=== PATIENT | male | born 1950 | race Caucasian/White ===

== ENCOUNTER 2020-02-28 14:03 | Outpatient (REF) | payer MEDICARE, OTHER, SELFPAY | END 2020-02-28 14:04 | disposition home or self-care (01) | LOC: HO.LNP 14:03 | PROVIDERS: Visit Provider Family Medicine | DX: Z20.828 Contact with and (suspected) exposure to other viral communicable diseases (principal) | CPT/HCPCS: U0003 ==

== ENCOUNTER 2020-02-29 09:45 | Emergency (ER) | payer MEDICARE, OTHER, SELFPAY ==
[2020-02-29 09:59] VITALS: BP 119/68; PULSE 85; RESP 18; TEMP 38.3; O2SAT 99; BMI 28.0
--- NOTE | 2020-02-29 10:05 | XR_ITS ---
EXAMINATION: XR CHEST CLINICAL INFORMATION: Shortness of breath, cough COMPARISON: None TECHNIQUE: Portable upright AP view of the chest was obtained. FINDINGS: There is probable nipple shadow right base overlying the sixth anterior intercostal space. This may be confirmed with repeat view with nipple marker. The lungs otherwise clear. There is no airspace consolidation or groundglass opacity. No pleural reaction or effusion. The costophrenic sulci are clear. The heart is normal in size. The hilar and mediastinal contours are normal. No visible acute bony abnormality. XR/XR chest 1V IMPRESSION: 1. Nodular opacity right base, possibly nipple shadow. This may be confirmed with repeat view with nipple marker. 2. Lungs otherwise clear.
--- NOTE | 2020-02-29 10:19 | ED.URI ---
HPI - URI/Sore Throat General Chief Complaint: Upper Respiratory Symptoms <Susan Rivera NP - Last Filed: 02/29/20 12:17> Stated Complaint: covid symptoms <Susan Rivera NP - Last Filed: 02/29/20 12:17> Time Seen by Provider: 02/29/20 10:05 <Susan Rivera NP - Last Filed: 02/29/20 12:17> Source: patient <Susan Rivera NP - Last Filed: 02/29/20 12:17> Mode of arrival: ambulatory <Susan Rivera NP - Last Filed: 02/29/20 12:17> Limitations: no limitations <Susan Rivera NP - Last Filed: 02/29/20 12:17> History of Present Illness HPI Narrative: 69-year-old male previously healthy here with cough, sore throat, subjective fevers, headache x3 days. The patient tells me he has some chest discomfort with coughing. No shortness of breath, leg swelling or pain. <Susan Rivera NP - Last Filed: 02/29/20 12:17> MD elicited complaint: fever and cough <Susan Rivera NP - Last Filed: 02/29/20 12:17> Onset (ago): day(s) <Susan Rivera NP - Last Filed: 02/29/20 12:17> Consistency: intermittent <Susan Rivera NP - Last Filed: 02/29/20 12:17> Severity: mild <Susan Rivera NP - Last Filed: 02/29/20 12:17> Able to tolerate fluids by mouth: Yes <Susan Rivera NP - Last Filed: 02/29/20 12:17> Exacerbating factors: nothing <Susan Rivera NP - Last Filed: 02/29/20 12:17> Relieving factors: nothing <Susan Rivera NP - Last Filed: 02/29/20 12:17> Associated symptoms: fever, headache, sore throat, cough and chest pain <Susan Rivera NP - Last Filed: 12/02/20 12:17> Treatments prior to arrival: none <Susan Rivera NP - Last Filed: 02/29/20 12:17> Related Data Home Medications: Previous Rx's Medication Instructions Recorded lisinopril 20 mg tablet 20 mg PO DAILY 30 Days #30 tab 01/30/20 <Susan Rivera NP - Last Filed: 02/29/20 12:17> Allergies/Adverse Reactions: Allergies Allergy/AdvReac Type Severity Reaction Status Date / Time No Known Allergies Allergy Verified 02/28/20 09:12 [No Known Allergies*] <Susan Rivera NP - Last Filed: 02/29/20 12:17> Review of Systems Review of Systems: Yes all other systems are reviewed and are negative <Susan Rivera NP - Last Filed: 02/29/20 12:17> Constitutional: Constitutional: Reports no additional constitutional complaints, Denies body ache(s), Denies chills, Reports fever(s), Reports headache(s) and Denies weakness <Susan Rivera NP - Last Filed: 02/29/20 12:17> Eyes: Eyes: Reports no additional eye complaints and Denies change in vision <Susan Rivera NP - Last Filed: 02/29/20 12:17> ENT: Reports system reviewed and no additional complaints, except as documented, Denies dizziness, Reports headache(s), Denies nasal congestion, Denies nasal discharge, Denies neck pain and Reports sore throat <Susan Rivera NP - Last Filed: 02/29/20 12:17> Cardiovascular: Cardiovascular: Reports no additional cardiovascular complaints, Reports chest pain, Denies leg edema and Denies dyspnea <Susan Rivera NP - Last Filed: 02/29/20 12:17> Respiratory: Respiratory: Reports no additional respiratory complaints, Reports cough and Denies dyspnea <Susan Rivera NP - Last Filed: 02/29/20 12:17> Gastrointestinal: Gastrointestinal: Reports no additional gastrointestinal complaints, Denies abdominal pain, Denies diarrhea, Denies nausea and Denies vomiting <Susan Rivera NP - Last Filed: 02/29/20 12:17> Genitourinary: Genitourinary: Denies urinary incontinence <Susan Rivera NP - Last Filed: 02/29/20 12:17> Musculoskeletal: Musculoskeletal: Reports no additional musculoskeletal complaints, Denies back pain, Denies arthralgias, Denies joint swelling, Denies neck pain, Denies numbness and Denies tingling <Susan Rivera NP - Last Filed: 02/29/20 12:17> Integumentary/Breasts: Skin/Breast: Reports system reviewed and no additional complaints, except as docu and Denies rash <Susan Rivera NP - Last Filed: 02/29/20 12:17> Neurologic: Reports system reviewed and no additional complaints, except as documented, Denies Abnormal speech present, Denies dizziness, Reports headache(s), Denies numbness, Denies tingling and Denies weakness <Susan Rivera NP - Last Filed: 02/29/20 12:17> [facility] Past Medical History Attestation statement: The following information was validated with the patient. <Susan Rivera NP - Last Filed: 02/29/20 12:17> Source: old records reviewed and nursing notes reviewed <Susan Rivera NP - Last Filed: 02/29/20 12:17> Social History Social History: Social History Alcohol intake: former Smoking Status: Former smoker Use of substances other than those prescribed or required for medical reasons: No Advance Directives: No Advance Directives Information Provided: No <Susan Rivera NP - Last Filed: 02/29/20 12:17> Physical Exam Vital Signs: Vital Signs: Last Vital Signs Temp 100.8 F H 02/29/20 11:09 Pulse 71 02/29/20 11:09 Resp 16 02/29/20 11:09 BP 113/62 02/29/20 11:09 Pulse Ox 96 02/29/20 11:11 Body Mass Index 28.0 <Susan Rivera NP - Last Filed: 02/29/20 12:17> Vital Signs: Last Vital Signs Temp 100.8 F H 02/29/20 11:09 Pulse 71 02/29/20 11:09 Resp 16 02/29/20 11:09 BP 113/62 02/29/20 11:09 Pulse Ox 96 02/29/20 11:11 Body Mass Index 28.0 <Simon Hendricks MD - Last Filed: 03/18/20 20:03> Const: General: cooperative, healthy appearing, comfortable and no acute distress <Susan Rivera NP - Last Filed: 02/29/20 12:17> Orientation/consciousness: patient oriented x3 <Susan Rivera NP - Last Filed: 02/29/20 12:17> Limitations: no limitations <Susan Rivera NP - Last Filed: 02/29/20 12:17> HENMT: Head: Yes normal to inspection <Susan Rivera NP - Last Filed: 02/29/20 12:17> Ears: hearing grossly normal bilaterally <Susan Rivera NP - Last Filed: 02/29/20 12:17> General nose exam: Normal external nose present <Susan Rivera NP - Last Filed: 02/29/20 12:17> Face and sinus: Yes normal facial exam <Susan Rivera NP - Last Filed: 02/29/20 12:17> Mouth: Normal oral and palatal mucosa present <Susan Rivera NP - Last Filed: 02/29/20 12:17> Throat: Yes posterior oropharynx normal <Susan Rivera NP - Last Filed: 02/29/20 12:17> Eyes: General: appearance normal, both eyes and all related structures <Susan Rivera NP - Last Filed: 02/29/20 12:17> Pupils: Equal, round and reactive pupils present <Susan Rivera NP - Last Filed: 02/29/20 12:17> Neck: Neck: Yes normal visual inspection <Susan Rivera NP - Last Filed: 02/29/20 12:17> Chest: Chest palpation & inspection: normal inspection of the chest <Susan Rivera NP - Last Filed: 02/29/20 12:17> Resp: Effort & Inspection: normal respiratory effort <Susan Rivera NP - Last Filed: 02/29/20 12:17> Auscultation: clear to auscultation bilaterally <Susan Rivera NP - Last Filed: 02/29/20 12:17> Cardio: Rate: regular rate <Susan Rivera NP - Last Filed: 02/29/20 12:17> Rhythm: regular rhythm <Susan Rivera [employer]IST - Last Filed: 02/29/20 12:17> Peripheral pulses: Peripheral pulses 2+ throughout <Susan Rivera NP - Last Filed: 02/29/20 12:17> GI: Inspection: Yes normal to inspection <Susan Rivera NP - Last Filed: 02/29/20 12:17> Palpation (GI): Soft to palpation and nontender <Susan Rivera NP - Last Filed: 02/29/20 12:17> Auscultation: normal bowel sounds <Susan Rivera NP - Last Filed: 02/29/20 12:17> Back/Spine/Pelvis: Thoracic/Lumbar Spine: thoracic and lumbar spine normal to inspection <Susan Rivera NP - Last Filed: 02/29/20 12:17> Skin: General skin exam: no rashes or lesions noted <Susan Rivera NP - Last Filed: 02/29/20 12:17> Neuro: General: patient oriented x3, no focal motor deficits and normal sensation to monofilament <Susan Rivera NP - Last Filed: 02/29/20 12:17> Cranial nerves: Yes Equal, round and reactive pupils present <Susan Rivera NP - Last Filed: 02/29/20 12:17> Cognition (Neuro): normal cognition <Susan Rivera NP - Last Filed: 02/29/20 12:17> Speech: No Abnormal speech present <Susan Rivera NP - Last Filed: 02/29/20 12:17> Gait exam (Neuro): Normal gait present <Susan Rivera NP - Last Filed: 02/29/20 12:17> Motor exam (neuro): 5/5 motor strength present throughout <Susan Rivera NP - Last Filed: 02/29/20 12:17> Extrem: General: Yes normal to inspection <Susan Rivera NP - Last Filed: 02/29/20 12:17> Course Course Course Narrative: 69-year-old male here with flu-like symptoms x3 days. Patient is well-appearing. He only has chest discomfort with coughing. It is not worsened with deep breathing or movement. Likely chest wall strain. Will send COVID testing and check chest x-ray. Patient is febrile on arrival with no other signs or symptoms of systemic infection. This is from a viral cause. 1145- COVID swab positive. Fever is from viral infection. chest x-ray unremarkable for underlying pneumonia. Patient ambulated in the ER with an oxygen saturation greater than 98%. Well-appearing. Reviewed worrisome signs and symptoms which includes severe shortness of breath, worsening chest pain, fever was not responding to Tylenol or Motrin and when to return to the emergency department. Comfortable with discharge home. Of no x-ray noted a potential nodular opacity but this is likely nipple shadowing. patient was made aware and the copy of the report was given to him so he can follow up with his primary care doctor as needed. <Susan Rivera NP - Last Filed: 02/29/20 12:17> I have reviewed the chart <Simon Hendricks MD - Last Filed: 03/18/20 20:03> MDM - URI/Sore Throat Medical Records Attestation: I reviewed the patient's medical records. <Susan Rivera NP - Last Filed: 02/29/20 12:17> Lab Data Attestation: I reviewed the patient's lab results. <Susan Rivera NP - Last Filed: 02/29/20 12:17> Labs: Lab Results 02/29/20 Range/Units 10:24 Coronavirus (PCR) POSITIVE A (Negative) Influenza Type A (PCR) NEGATIVE (Negative) Influenza Type B (PCR) NEGATIVE (Negative) RSV RNA Qual (PCR) NEGATIVE (Negative) <Susan Rivera NP - Last Filed: 02/29/20 12:17> Lab Results 02/29/20 Range/Units 10:24 Coronavirus (PCR) POSITIVE A (Negative) Influenza Type A (PCR) NEGATIVE (Negative) Influenza Type B (PCR) NEGATIVE (Negative) RSV RNA Qual (PCR) NEGATIVE (Negative) <Simon Hendricks MD - Last Filed: 03/18/20 20:03> Imaging Data Chest x-ray: Radiologist's impression: EXAMINATION: XR CHEST CLINICAL INFORMATION: Shortness of breath, cough COMPARISON: None TECHNIQUE: Portable upright AP view of the chest was obtained. FINDINGS: There is probable nipple shadow right base overlying the sixth anterior intercostal space. This may be confirmed with repeat view with nipple marker. The lungs otherwise clear. There is no airspace consolidation or groundglass opacity. No pleural reaction or effusion. The costophrenic sulci are clear. The heart is normal in size. The hilar and mediastinal contours are normal. No visible acute bony abnormality. XR/XR chest 1V IMPRESSION: 1. Nodular opacity right base, possibly nipple shadow. This may be confirmed with repeat view with nipple marker. 2. Lungs otherwise clear. <Susan Rivera NP - Last Filed: 02/29/20 12:17> Discharge Plan Discharge Clinical Impression: COVID-19 <Susan Rivera NP - Last Filed: 02/29/20 12:17> Patient Disposition: Home, Self-Care <Susan Rivera NP - Last Filed: 02/29/20 12:17> Instructions: COVID-19 (Coronavirus Disease 2019) (ED) <Susan Rivera NP - Last Filed: 02/29/20 12:17> Additional Instructions: Take tylenol or motrin if able as needed for pain or fever. Stay well hydrated with fluids like water, gatorade and/or powerade. Wash hands at home. If living with others try to self isolate if possible. If unable wear a mask around others in your home and wash hands frequently. If COVID test is positive you will need to self isolate for a total of 14 days from when your symptoms started. You may return to work sooner if testing is negative and all symptoms resolved >72 hours. You should return to the emergency department for severe shortness of breath, chest pain or fever which does not respond to both tylenol and motrin at home. <Susan Rivera NP - Last Filed: 02/29/20 12:17> Prescriptions: No Action lisinopril 20 mg tablet 20 mg PO DAILY 30 Days Qty: 30 RF: 6 <Susan Rivera NP - Last Filed: 02/29/20 12:17> Referrals: Jamie Porter MD [Primary Care Provider] - 2 days <Susan Rivera NP - Last Filed: 02/29/20 12:17> Interventions: ED Discharge Assessment Last Done: 02/29/20 12:07 <Susan Rivera NP - Last Filed: 02/29/20 12:17> Discharge Date/Time: 02/29/20 12:08 <Susan Rivera NP - Last Filed: 02/29/20 12:17>
[2020-02-29] MEDS: Acetaminophen 325 MG TABLET 650 MG PO (10:25)
[2020-02-29 11:09] VITALS: BP 113/62; PULSE 71; RESP 16; TEMP 38.2; O2SAT 95
[2020-02-29 11:11] VITALS: O2SAT 96
--- NOTE | 2020-02-29 11:12 | PC.NURSE ---
Awaiting COVID result- no distress, vss, provider aware of fever and antipyretic requested for pt. Pt denies needs or complaints at this time.
[2020-02-29] MEDS: Ibuprofen 600 MG TABLET PO (11:26)
[2020-02-29 11:46] LABS: Influenza A PCR NEGATIVE (Negative); Influenza B PCR NEGATIVE (Negative); Resp Syncy Virus RNA Qual PCR NEGATIVE (Negative); SARS COV2 PCR INHOUSE POSITIVE (Negative)
--- NOTE | 2020-02-29 11:51 | PC.NURSE ---
ambulation trial-pt maintained spo2 of 96 on room air, 85bpm. provider aware
== END 2020-02-29 12:08 | disposition home or self-care (01) ==
PROVIDERS: Nurse Practitioner Family; Emergency Provider Emergency Medicine; PCP Family Medicine
DX: U07.1 COVID-19 (principal); R05 Cough; R50.9 Fever, unspecified; Z87.891 Personal history of nicotine dependence
CPT/HCPCS: 0241U; 71045; 99283; 99284

== ENCOUNTER 2020-03-27 10:25 | Outpatient (REF) | payer MEDICARE, OTHER, SELFPAY | END 2020-03-27 10:26 | disposition home or self-care (01) | LOC: HO.LNP 10:25 | PROVIDERS: Visit Provider Family Medicine | DX: N39.0 Urinary tract infection, site not specified (principal) | CPT/HCPCS: 87086; 87088; 87186 ==

== ENCOUNTER 2020-09-18 14:53 | Outpatient (REF) | payer MEDICARE, OTHER, SELFPAY ==
[2020-09-18 14:58] LABS: MANUAL DIFF FLAG NO
[2020-09-18 15:02] LABS: Basophils Percent Auto 0.6 % (0-2); Eosinophils Absolute Auto 0.1 X10*3/uL (0.0-0.4); Eosinophils Percent Auto 1.9 % (0-4); Hemoglobin 13.6 g/dl (14.0-18.0); Imm Gran Abs Auto 0.02 X10*3/uL (0.00-0.03); Imm Gran Pct Auto 0.3 % (0.0-0.4); Lymphocytes Absolute Auto 1.7 X10*3/uL (1.2-4.9); Lymphocytes Percent Auto 25.5 % (20-40); Mean Corpuscular HGB Conc 33.2 g/dl (31.0-36.0); Mean Corpuscular Hemoglobin 28.2 pg (27.0-33.0); Mean Corpuscular Volume 85.1 fL (80-98); Mean Platelet Volume 11.8 fL (9.4-12.4); Monocytes Absolute Auto 0.6 X10*3/uL (0.1-1.2); Monocytes Percent Auto 9.3 % (2-11); Neutrophils Absolute Auto 4.2 X10*3/uL (2.0-8.3); Neutrophils Percent Auto 62.4 % (45-73); Platelet Count 254 X10*3/uL (160-400); Red Blood Count 4.82 X10*6/uL (4.60-5.80); Red Cell Distribution Width 12.9 % (11.0-16.0); White Blood Count 6.7 X10*3/uL (4.8-10.8)
[2020-09-18 15:19] LABS: Glucose Urine UA NEG (NEG); Leukocyte Esterase Urine NEG (NEG); Nitrite Urine NEG (NEG); Specific Gravity - Urine 1.025 (1.005-1.025); Urine Blood NEG (NEG); Urine Ketones NEG (NEG); Urine Protein NEG (NEG-TRACE)
[2020-09-18 15:23] LABS: Appearance Urine CLEAR; Color Urine YELLOW
[2020-09-18 15:44] LABS: Alanine Aminotransferase 14 U/L (0-40); Albumin Level 4.8 g/dL (3.5-5.0); Alkaline Phosphatase 68 U/L (39-117); Anion Gap 12 (12-20); Aspartate Amino Transferase 23 U/L (5-37); Bilirubin Total 0.7 mg/dL (0.0-1.0); Blood Urea Nitrogen 20 mg/dL (9-16); Calcium 9.7 mg/dL (8.4-10.2); Carbon Dioxide 24 mmol/L (22-29); Chloride 109 mmol/L (96-108); Cholesterol 199 mg/dL; Estimated Glomerular Filt Rate > 60; Glucose Fasting 108 mg/dL (60-99); HDL Cholesterol 28 mg/dL; LDL Cholesterol Calculated 124 mg/dl; Potassium 4.1 mmol/L (3.3-5.1); Sodium 141 mmol/L (135-145); Total Protein 7.6 g/dL (6.5-8.0); Triglycerides 235 mg/dL
[2020-09-18 16:05] LABS: Vitamin D 25-OH Total 56.4 ng/mL (>30)
== END 2020-09-18 14:54 | disposition home or self-care (01) ==
LOC: HO.LNP 14:53
PROVIDERS: Visit Provider Internal Medicine
DX: I10 Essential (primary) hypertension (principal); Z86.19 Personal history of other infectious and parasitic diseases
CPT/HCPCS: 80053; 80061; 81003; 82306; 85025

== ENCOUNTER → 2021-02-07 08:59 | Outpatient (REF) | payer MEDICARE, OTHER, SELFPAY ==
--- NOTE | 2021-02-07 09:01 | CA_ITS ---
Acquisition Time: 2021-02-07 09:05:34 Total Exercise Time: 00:09:00 Test Indications: CHEST PRESSURE PALPITATIONS Medications: LISINOPRIL Protocol: MAGNO Max HR: 144 BPM 94% of Pred: 152 BPM Max BP: 168/078 mmHG Max Work Load: 10.4 METS Exercise stress test with exercise 9 min of Magno protocol, without anginal symptoms, with isolated PACs, with normotensive response to exercise, without EKG changes meeting criteria for ischemia. Test reviewed with Dr Mcfadden. Referred By: Naren Moreno Overread By: MARTHA STONE
== END ==
LOC: HO.CARD 08:59
PROVIDERS: PCP Internal Medicine; Visit Provider Internal Medicine
DX: R00.0 Tachycardia, unspecified (principal)
CPT/HCPCS: 93017

== ENCOUNTER 2021-05-27 11:11 | Inpatient (IN) | payer MEDICARE, OTHER, SELFPAY ==
[2021-05-27] VITALS (7 sets, daily range): BP systolic 114–148; BP diastolic 69–94; PULSE 54–145; RESP 10–20; TEMP 35.7–37.1; O2SAT 98–100; BMI 30.9; BMI 31.6
--- NOTE | 2021-05-27 11:16 | ECG_ITS ---
Test Reason : chest pain Blood Pressure : / mmHG Vent. Rate : 148 BPM Atrial Rate : 148 BPM P-R Int : 128 ms QRS Dur : 076 ms QT Int : 290 ms P-R-T Axes : 112 051 033 degrees QTc Int : 455 ms Sinus tachycardia vs atrial tachycardia Nonspecific ST abnormality Abnormal ECG No previous ECGs available Referred By: Generic ED Physician Electronically Signed By:Pillo Foster
--- NOTE | 2021-05-27 11:58 | ED_ITS ---
HPI - Arrhythmia/Palpitations General Chief Complaint: Arrhythmia/Palpitations Stated Complaint: rapid heart beat Time Seen by Provider: 05/27/21 11:58 Source: patient Limitations: no limitations History of Present Illness HPI narrative: patient has an anxious feeling and feels a rapid pulse. This has happened intermittenly for a year on and off. He feels dizziness. Patient had COVID one year ago and since then he has been having these events intermediately. Slight short of breath when it happens. Stress test was negative recently one month ago. Today symptoms started 3 hours ago. complaint: heart racing Onset (ago): hour(s) Duration: intermittent Severity: severe Context: occurred during rest Associated symptoms: shortness of breath and anxiety Related Data Home Medications Medication Instructions Recorded Confirmed multivitamin 1 tab PO DAILY 05/27/21 05/27/21 omega 4-ktr-sne-fish oil 1,000 mg 1 cap PO DAILY 05/27/21 05/27/21 (120 mg-180 mg) capsule (Fish Oil) Previous Rx's Medication Instructions Recorded cholecalciferol (vitamin D3) 25 25 mcg PO DAILY #30 tab 09/27/20 mcg (1,000 unit) tablet diltiazem HCl 120 mg 120 mg PO DAILY #30 cap 05/28/21 capsule,extended release 24 hr (Cardizem CD) hydrocortisone 2.5 % topical cream 1 appl IN BEDTIME #30 g 05/28/21 with perineal applicator (Proctozone-HC) lisinopril 5 mg tablet 5 mg PO DAILY #30 tab 05/28/21 apixaban 5 mg tablet (Eliquis) 5 mg PO BID 90 Days #180 tab 05/29/21 flecainide 150 mg tablet 300 mg PO DAILY PRN #30 tab 05/29/21 Allergies Allergy/AdvReac Type Severity Reaction Status Date / Time No Known Allergies Allergy Verified 02/28/20 09:12 [No Known Allergies*] [facility] Social History Social History Household Members: Spouse and Family Housing: House Alcohol intake: former Patient Tobacco Use Status: Former Tobacco user service: Yes Current occupational status: retired Physical Exam Vital Signs: Vital Signs: Last Vital Signs Temp 96.0 F L 05/28/21 15:31 Pulse 67 05/28/21 15:31 Resp 14 05/28/21 15:31 BP 135/78 05/28/21 15:31 Pulse Ox 98 05/28/21 15:31 BMI result Body Mass Index 31.6 Course Reevaluation(s) Reevaluation #1: EKG #2 Atrial fibrillation 135, no st or twave changes Time: 12:24 Reevaluation #2: Looks like patient is still in afib despite recent bolus, will consult cardiology Time: 13:59 MDM - Arrhythmia/Palpitations Lab Data Result diagrams: 05/28/21 06:08 05/28/21 06:08 Labs: Lab Results 05/27/21 05/27/21 05/27/21 Range/Units 12:18 12:18 12:18 WBC 7.2 (4.8-10.8) X10*3/uL RBC 4.71 (4.60-5.80) X10*6/uL Hgb 13.4 L (14.0-18.0) g/dl Hct 39.9 L (42.0-52.0) % MCV 84.7 (80.0-98.0) fL MCH 28.5 (27.0-33.0) pg MCHC 33.6 (31.0-36.0) g/dl RDW 13.1 (11.0-16.0) % Plt Count 224 (160-400) X10*3/uL MPV 10.9 (9.4-12.4) fL Immature Gran % (Auto) 0.3 (0.0-0.4) % Neut % (Auto) 63.1 (45-73) % Lymph % (Auto) 22.9 (20-40) % [place] % (Auto) 10.3 (2-11) % Eos % (Auto) 2.8 (0-4) % Baso % (Auto) 0.6 (0-2) % Lymph # (Auto) 1.7 (1.2-4.9) X10*3/uL [place] # (Auto) 0.7 (0.1-1.2) X10*3/uL Eos # (Auto) 0.2 (0.0-0.4) X10*3/uL Baso # (Auto) 0.0 (0.0-0.2) X10*3/uL Abs Immat Gran (auto) 0.02 (0.00-0.03) X10*3/uL Absolute Neuts (auto) 4.6 (2.0-8.3) x10*3/uL Absolute Nucleated RBC 0.000 (0.0-0.012) X10*3/uL Nucleated RBC % (auto) 0.0 (0.0-0.2) /100WBC PT (9.9-13.0) SEC INR (0.9-1.1) APTT (24.1-38.0) SEC Sodium 141 (135-145) mmol/L Potassium 4.5 (3.3-5.1) mmol/L Chloride 109 H (96-108) mmol/L Carbon Dioxide 24 (22-29) mmol/L Anion Gap 13 (12-20) BUN 13 (9-16) mg/dL Creatinine 0.98 (0.5-1.4) mg/dL Estim Creat Clear Calc 92.0 Estimated GFR > 60 Random Glucose 114 (60-115) mg/dL Calcium 9.7 (8.4-10.2) mg/dL Total Bilirubin 0.4 (0.0-1.0) mg/dL Direct Bilirubin < 0.2 (0.0-0.5) mg/dL AST 20 (5-37) U/L ALT 12 (0-40) U/L Alkaline Phosphatase 73 (39-117) U/L Troponin I High Sens < 3.5 (<3.5-35.0) ng/L Total Protein 7.3 (6.5-8.0) g/dL Albumin 4.6 (3.5-5.0) g/dL TSH (0.32-4.0) uIU/mL Urine Color Urine Appearance Urine pH (5.0-8.0) Ur Specific [place] (1.005-1.025) Urine Protein (NEG-TRACE) MG/DL Urine Glucose (UA) (NEG) MG/DL Urine Ketones (NEG) MG/DL Urine Blood (NEG) Urine Nitrite (NEG) Ur Leukocyte Esterase (NEG) COVID-19 ([facility]LAKE) (Negative) COVID-19 Clin Com 05/27/21 05/27/21 05/27/21 Range/Units 12:28 12:28 12:28 WBC 6.8 (4.8-10.8) X10*3/uL RBC 4.80 (4.60-5.80) X10*6/uL Hgb 13.5 L (14.0-18.0) g/dl Hct 41.1 L (42.0-52.0) % MCV 85.6 (80.0-98.0) fL MCH 28.1 (27.0-33.0) pg MCHC 32.8 (31.0-36.0) g/dl RDW 12.9 (11.0-16.0) % Plt Count 228 (160-400) X10*3/uL MPV 11.2 (9.4-12.4) fL Immature Gran % (Auto) (0.0-0.4) % Neut % (Auto) (45-73) % Lymph % (Auto) (20-40) % [place] % (Auto) (2-11) % Eos % (Auto) (0-4) % Baso % (Auto) (0-2) % Lymph # (Auto) (1.2-4.9) X10*3/uL [place] # (Auto) (0.1-1.2) X10*3/uL Eos # (Auto) (0.0-0.4) X10*3/uL Baso # (Auto) (0.0-0.2) X10*3/uL Abs Immat Gran (auto) (0.00-0.03) X10*3/uL Absolute Neuts (auto) (2.0-8.3) x10*3/uL Absolute Nucleated RBC 0.000 (0.0-0.012) X10*3/uL Nucleated RBC % (auto) 0.0 (0.0-0.2) /100WBC PT 11.3 (9.9-13.0) SEC INR 1.0 (0.9-1.1) APTT 36.9 (24.1-38.0) SEC Sodium (135-145) mmol/L Potassium (3.3-5.1) mmol/L Chloride (96-108) mmol/L Carbon Dioxide (22-29) mmol/L Anion Gap (12-20) BUN (9-16) mg/dL Creatinine (0.5-1.4) mg/dL Estim Creat Clear Calc Estimated GFR Random Glucose (60-115) mg/dL Calcium (8.4-10.2) mg/dL Total Bilirubin (0.0-1.0) mg/dL Direct Bilirubin (0.0-0.5) mg/dL AST (5-37) U/L ALT (0-40) U/L Alkaline Phosphatase (39-117) U/L Troponin I High Sens (<3.5-35.0) ng/L Total Protein (6.5-8.0) g/dL Albumin (3.5-5.0) g/dL TSH 2.11 (0.32-4.0) uIU/mL Urine Color Urine Appearance Urine pH (5.0-8.0) Ur Specific [place] (1.005-1.025) Urine Protein (NEG-TRACE) MG/DL Urine Glucose (UA) (NEG) MG/DL Urine Ketones (NEG) MG/DL Urine Blood (NEG) Urine Nitrite (NEG) Ur Leukocyte Esterase (NEG) COVID-19 (BLAKE) (Negative) COVID-19 Clin Com 05/27/21 05/27/21 Range/Units 12:28 13:04 WBC (4.8-10.8) X10*3/uL RBC (4.60-5.80) X10*6/uL Hgb (14.0-18.0) g/dl Hct (42.0-52.0) % MCV (80.0-98.0) fL MCH (27.0-33.0) pg MCHC (31.0-36.0) g/dl RDW (11.0-16.0) % Plt Count (160-400) X10*3/uL MPV (9.4-12.4) fL Immature Gran % (Auto) (0.0-0.4) % Neut % (Auto) (45-73) % Lymph % (Auto) (20-40) % [place] % (Auto) (2-11) % Eos % (Auto) (0-4) % Baso % (Auto) (0-2) % Lymph # (Auto) (1.2-4.9) X10*3/uL [place] # (Auto) (0.1-1.2) X10*3/uL Eos # (Auto) (0.0-0.4) X10*3/uL Baso # (Auto) (0.0-0.2) X10*3/uL Abs Immat Gran (auto) (0.00-0.03) X10*3/uL Absolute Neuts (auto) (2.0-8.3) x10*3/uL Absolute Nucleated RBC (0.0-0.012) X10*3/uL Nucleated RBC % (auto) (0.0-0.2) /100WBC PT (9.9-13.0) SEC INR (0.9-1.1) APTT (24.1-38.0) SEC Sodium (135-145) mmol/L Potassium (3.3-5.1) mmol/L Chloride (96-108) mmol/L Carbon Dioxide (22-29) mmol/L Anion Gap (12-20) BUN (9-16) mg/dL Creatinine (0.5-1.4) mg/dL Estim Creat Clear Calc Estimated GFR Random Glucose (60-115) mg/dL Calcium (8.4-10.2) mg/dL Total Bilirubin (0.0-1.0) mg/dL Direct Bilirubin (0.0-0.5) mg/dL AST (5-37) U/L ALT (0-40) U/L Alkaline Phosphatase (39-117) U/L Troponin I High Sens (<3.5-35.0) ng/L Total Protein (6.5-8.0) g/dL Albumin (3.5-5.0) g/dL TSH (0.32-4.0) uIU/mL Urine Color STRAW Urine Appearance CLEAR Urine pH 5.5 (5.0-8.0) Ur Specific [place] <= 1.005 (1.005-1.025) Urine Protein NEG (NEG-TRACE) MG/DL Urine Glucose (UA) NEG (NEG) MG/DL Urine Ketones NEG (NEG) MG/DL Urine Blood NEG (NEG) Urine Nitrite NEG (NEG) Ur Leukocyte Esterase NEG (NEG) COVID-19 (BLAKE) Negative (Negative) COVID-19 Clin Com See Note ECG Data Attestation: I personally reviewed and interpreted this ECG as follows: Interpretation: sinus [address] twave changes vs aflutter 2:1 block Discharge Plan Discharge Clinical Impression: Atrial fibrillation Patient Disposition: Admitted As Inpatient Interventions: Admission Worksheet (ED) Last Done: 05/27/21 16:51 Discharge Date/Time: 05/27/21 17:10
--- NOTE | 2021-05-27 12:03 | ECG_ITS ---
Test Reason : arrythmia Blood Pressure : / mmHG Vent. Rate : 135 BPM Atrial Rate : 000 BPM P-R Int : 000 ms QRS Dur : 078 ms QT Int : 266 ms P-R-T Axes : 000 044 052 degrees QTc Int : 399 ms Atrial fibrillation with rapid ventricular response Abnormal ECG When compared with ECG of 27-MAY-2021 11:14, Atrial fibrillation has replaced Sinus rhythm ST no longer depressed in Anterior leads Nonspecific T wave abnormality no longer evident in Inferior leads Nonspecific T wave abnormality no longer evident in Lateral leads Referred By: Simon Hendricks Electronically Signed By:Pillo Foster
[2021-05-27 12:21] LABS: MANUAL DIFF FLAG NO
[2021-05-27 12:28] LABS: Basophils Percent Auto 0.6 % (0-2); Eosinophils Absolute Auto 0.2 X10*3/uL (0.0-0.4); Eosinophils Percent Auto 2.8 % (0-4); Hematocrit 39.9 % (42.0-52.0); Hemoglobin 13.4 g/dl (14.0-18.0); Imm Gran Abs Auto 0.02 X10*3/uL (0.00-0.03); Imm Gran Pct Auto 0.3 % (0.0-0.4); Lymphocytes Absolute Auto 1.7 X10*3/uL (1.2-4.9); Lymphocytes Percent Auto 22.9 % (20-40); Mean Corpuscular HGB Conc 33.6 g/dl (31.0-36.0); Mean Corpuscular Hemoglobin 28.5 pg (27.0-33.0); Mean Corpuscular Volume 84.7 fL (80.0-98.0); Mean Platelet Volume 10.9 fL (9.4-12.4); Monocytes Absolute Auto 0.7 X10*3/uL (0.1-1.2); Monocytes Percent Auto 10.3 % (2-11); Neutrophils Absolute Auto 4.6 x10*3/uL (2.0-8.3); Neutrophils Percent Auto 63.1 % (45-73); Platelet Count 224 X10*3/uL (160-400); Red Blood Count 4.71 X10*6/uL (4.60-5.80); Red Cell Distribution Width 13.1 % (11.0-16.0); White Blood Count 7.2 X10*3/uL (4.8-10.8)
[2021-05-27 12:36] LABS: Anion Gap 13 (12-20); Blood Urea Nitrogen 13 mg/dL (9-16); Calcium 9.7 mg/dL (8.4-10.2); Carbon Dioxide 24 mmol/L (22-29); Chloride 109 mmol/L (96-108); Estimated Glomerular Filt Rate > 60; Glucose Random 114 mg/dL (60-115); Potassium 4.5 mmol/L (3.3-5.1); Sodium 141 mmol/L (135-145)
[2021-05-27] MEDS: dilTIAZem HCL 50 MG/10 ML VIAL 10 MG IVPUSH (12:37)
[2021-05-27] MEDS: Aspirin Enteric Coated 325 MG TABLET.DR PO (12:37)
[2021-05-27] MEDS: Enoxaparin Sodium 120 MG/0.8 ML SYRINGE 105 MG SUBCUT (12:38)
[2021-05-27 12:39] LABS: Hematocrit 41.1 % (42.0-52.0); Hemoglobin 13.5 g/dl (14.0-18.0); Mean Corpuscular HGB Conc 32.8 g/dl (31.0-36.0); Mean Corpuscular Hemoglobin 28.1 pg (27.0-33.0); Mean Corpuscular Volume 85.6 fL (80.0-98.0); Mean Platelet Volume 11.2 fL (9.4-12.4); Platelet Count 228 X10*3/uL (160-400); Red Cell Distribution Width 12.9 % (11.0-16.0); White Blood Count 6.8 X10*3/uL (4.8-10.8)
[2021-05-27 12:42] LABS: Prothrombin Time 11.3 SEC (9.9-13.0)
[2021-05-27 12:43] LABS: Troponin-I High Sensitivity < 3.5 ng/L (<3.5-35.0)
[2021-05-27 12:45] LABS: Partial Thromboplastin Time 36.9 SEC (24.1-38.0)
[2021-05-27] MEDS: dilTIAZem HCL 125 MG in 0.9 % Sodium Chloride 100 ML 10 MG IVCONT (12:46)
[2021-05-27 12:54] LABS: COVID-19 Test Negative (Negative)
[2021-05-27 13:10] LABS: Appearance Urine CLEAR; Color Urine STRAW; Glucose Urine UA NEG (NEG); Leukocyte Esterase Urine NEG (NEG); Nitrite Urine NEG (NEG); PH 5.5 (5.0-8.0); Specific Gravity - Urine <= 1.005 (1.005-1.025); Urine Blood NEG (NEG); Urine Ketones NEG (NEG); Urine Protein NEG (NEG-TRACE)
[2021-05-27 13:13] LABS: TSH reflex Free T4 2.11 uIU/mL (0.32-4.0)
[2021-05-27] MEDS: dilTIAZem HCL 50 MG/10 ML VIAL 15 MG IVPUSH (13:45)
--- NOTE | 2021-05-27 13:59 | ECG_ITS ---
Test Reason : repeat Blood Pressure : / mmHG Vent. Rate : 084 BPM Atrial Rate : 357 BPM P-R Int : 000 ms QRS Dur : 080 ms QT Int : 332 ms P-R-T Axes : 000 024 030 degrees QTc Int : 392 ms Atrial flutter with variable A-V block Abnormal ECG When compared with ECG of 27-MAY-2021 12:15, Atrial flutter has replaced Atrial fibrillation Vent. rate has decreased BY 51 BPM Referred By: Simon Hendricks Electronically Signed By:Pillo Foster
--- NOTE | 2021-05-27 14:15 | PHA.MEDREC ---
Pharmacy Consult ? Medication Reconciliation Pharmacy has completed the medication reconciliation. There are no remarkable issues for provider's Attention. Misty Simmons, ErinD
--- NOTE | 2021-05-27 14:46 | PM.IMHP ---
History of Present Illness Date of Service: 05/27/21 Chief Complaint: new afib 71 y/o M with possible new afib-patient says that he has palpitations and intermittent dizziness from almost a year-he went to his doctor and half month cough or palpitations and that time stress test was done (02/07/21) seems fine. Patient has palpitations. Intermittent dizziness as per patient. Denies any blurred vision or weakness or numbness Denies any new complaint of chest pain or shortness of breath or abdominal pain or fever or chills or nausea or vomiting Denies any cough Past medical history: Hypertension, hypercholesteremia, history of hepatitis-C in the past he said he received treatment for that. History of hemorrhoids. Past surgical history has history of right elbow surgery after accident. Social history lives with his totally independent does not need any help with ADLs. Denies any use of recreational drugs or smoking, has occasional alcohol use 1 beer /week. Review of Systems Review of Systems: As above. Yes all other systems are reviewed and are negative PMFSH Pertinent family history: mother has htn. Social History Alcohol intake: former Advance Directives: No Advance Directives Information Provided: No Meds Allergies Allergy/AdvReac Type Severity Reaction Status Date / Time No Known Allergies Allergy Verified 02/28/20 09:12 [No Known Allergies*] Active Medications: Current Medications Diltiazem HCl 125 mg/ Sodium (Chloride) 125 mls @ 0 mls/hr IVCONT .Q0M [facility]; Protocol Last Titration: 05/27/21 13:45 Dose: 15 mg/hr, 15 mls/hr Documented by: Pharmacy Consult (Consult Rx Perform Med Rec) 1 each MISCELLANE ONCE PRN PRN Reason: Consult order Sodium Chloride (0.9 % Sodium Chloride Flush 3 Ml Syringe) 3 ml IVFLUSH QSHIFT [facility] Home Medications Medication Instructions Recorded Confirmed Last Taken Type multivitamin 1 tab PO DAILY 05/27/21 05/27/21 05/27/21 History omega 2-qys-xah-fish oil 1,000 mg 1 cap PO DAILY 05/27/21 05/27/21 05/27/21 History (120 mg-180 mg) capsule (Fish Oil) Physical Exam Vital Signs and Narrative: Vital Signs: Last Vital Signs Temp 98.4 F 05/27/21 14:19 Pulse 99 05/27/21 14:19 Resp 14 05/27/21 14:19 BP 144/94 H 05/27/21 14:19 Pulse Ox 100 05/27/21 14:19 BMI result Body Mass Index 31.6 Appearance: Alert.? Oriented X3.? not in distress.? Eyes: Pupils equal, round and reactive to light.? Sclera nonicteric.? ENT: Pharynx normal.? Moist mucous membranes. cvs: irregular rythem, [id number] res: clear to auscultation ,no rhonchii or wheezing abd: no rebound or guarding ,nt, bs present. ext pulses present , no cyanosis . neuro: axo3 , nonfocal. Results Labs CBC and Chem 7: 05/27/21 12:28 05/27/21 12:18 Labs: Laboratory Results - last 24 hr 05/27/21 05/27/21 05/27/21 12:18 12:18 12:28 MCV 84.7 MCH 28.5 MCHC 33.6 RDW 13.1 Plt Count 224 MPV 10.9 Immature Gran % (Auto) 0.3 Neut % (Auto) 63.1 Lymph % (Auto) 22.9 [place] % (Auto) 10.3 Eos % (Auto) 2.8 Baso % (Auto) 0.6 Lymph # (Auto) 1.7 [place] # (Auto) 0.7 Eos # (Auto) 0.2 Baso # (Auto) 0.0 Abs Immat Gran (auto) 0.02 Absolute Neuts (auto) 4.6 Absolute Nucleated RBC 0.000 Nucleated RBC % (auto) 0.0 PT INR APTT Anion Gap 13 Estim Creat Clear Calc 92.0 Estimated GFR > 60 Random Glucose 114 Calcium 9.7 TSH 2.11 Urine Color Urine Appearance Urine pH Ur Specific [place] Urine Protein Urine Glucose (UA) Urine Ketones Urine Blood Urine Nitrite Ur Leukocyte Esterase COVID-19 ([facility]) COVID-19 Clin Com 05/27/21 05/27/21 05/27/21 12:28 12:28 12:28 MCV 85.6 MCH 28.1 MCHC 32.8 RDW 12.9 Plt Count 228 MPV 11.2 Immature Gran % (Auto) Neut % (Auto) Lymph % (Auto) [place] % (Auto) Eos % (Auto) Baso % (Auto) Lymph # (Auto) [place] # (Auto) Eos # (Auto) Baso # (Auto) Abs Immat Gran (auto) Absolute Neuts (auto) Absolute Nucleated RBC 0.000 Nucleated RBC % (auto) 0.0 PT 11.3 INR 1.0 APTT 36.9 Anion Gap Estim Creat Clear Calc Estimated GFR Random Glucose Calcium TSH Urine Color Urine Appearance Urine pH Ur Specific [place] Urine Protein Urine Glucose (UA) Urine Ketones Urine Blood Urine Nitrite Ur Leukocyte Esterase COVID-19 ([facility]) Negative COVID-19 Clin Com See Note 05/27/21 13:04 MCV MCH MCHC RDW Plt Count MPV Immature Gran % (Auto) Neut % (Auto) Lymph % (Auto) [place] % (Auto) Eos % (Auto) Baso % (Auto) Lymph # (Auto) [place] # (Auto) Eos # (Auto) Baso # (Auto) Abs Immat Gran (auto) Absolute Neuts (auto) Absolute Nucleated RBC Nucleated RBC % (auto) PT INR APTT Anion Gap Estim Creat Clear Calc Estimated GFR Random Glucose Calcium TSH Urine Color STRAW Urine Appearance CLEAR Urine pH 5.5 Ur Specific [place] <= 1.005 Urine Protein NEG Urine Glucose (UA) NEG Urine Ketones NEG Urine Blood NEG Urine Nitrite NEG Ur Leukocyte Esterase NEG COVID-19 ([facility]) COVID-19 Clin Com Imaging Radiologist's Impressions: ?XR/XR chest 1V IMPRESSION: ? 1. Nodular opacity right base, possibly nipple shadow. This may be confirmed with repeat view with nipple marker. 2. Lungs otherwise clear. ? Assessment and Plan (1) Atrial fibrillation: Status: Acute (2) HTN (hypertension): Status: Acute (3) Hypercholesteremia: Status: Acute Plan 71-year-old male with history of palpitations, intermittent dizziness unclear if he knows that afib in the past. 1. afib with rvr troponin x1 neg, next pending check tsh on cardizem drip, given lovenox in ed echo cardio evaluation 2. htn:continue lisinopril 3. Hlp: Not on nay meds , will check lipid panel in am. 4. dvt prophylax: s/c lovenox. Assessment and plan discussed with patient in detail length he understand and in agreement with above plan, time spent 70 minute. Quality Stroke Does the patient have a stroke diagnosis?: No VTE Prior VTE?: No VTE Risk Level:: Medical - moderate - high VTE Device Contraindication: N/A - Device Ordered VTE Drug Contraindication: N/A - Med Ordered
[2021-05-27 16:17] LABS: Alanine Aminotransferase 12 U/L (0-40); Albumin Level 4.6 g/dL (3.5-5.0); Alkaline Phosphatase 73 U/L (39-117); Aspartate Amino Transferase 20 U/L (5-37); Bilirubin Direct < 0.2 mg/dL (0.0-0.5); Bilirubin Total 0.4 mg/dL (0.0-1.0); Total Protein 7.3 g/dL (6.5-8.0)
[2021-05-27 17:09] LABS: Troponin-I High Sensitivity 5.3 ng/L (<3.5-35.0)
--- NOTE | 2021-05-27 22:15 | ECG_ITS ---
Test Reason : ck rhythm Blood Pressure : / mmHG Vent. Rate : 055 BPM Atrial Rate : 055 BPM P-R Int : 166 ms QRS Dur : 084 ms QT Int : 416 ms P-R-T Axes : 073 040 049 degrees QTc Int : 397 ms Sinus bradycardia Otherwise normal ECG When compared with ECG of 27-MAY-2021 14:07, Sinus rhythm has replaced Atrial flutter Vent. rate has decreased BY [address] no longer depressed in Inferior leads Referred By: Ruddy Shaikh Electronically Signed By:Pillo Foster
--- NOTE | 2021-05-27 22:24 | PC.NURSE ---
rhythm converted to sinus nyasia, heart rate 54, cardizem drip stopped ,Dr Shaikh notified , EKG ordered for confirmation of the rhythm and EKG done ,
[2021-05-27] MEDS: Enoxaparin Sodium 120 MG/0.8 ML SYRINGE 110 MG SUBCUT (23:59)
[2021-05-28 03:44] VITALS: BP 110/67; PULSE 59; RESP 18; TEMP 36.6; O2SAT 98
[2021-05-28 06:34] LABS: MANUAL DIFF FLAG NO
[2021-05-28 06:47] LABS: Basophils Absolute Auto 0.1 X10*3/uL (0.0-0.2); Basophils Percent Auto 0.9 % (0-2); Eosinophils Absolute Auto 0.2 X10*3/uL (0.0-0.4); Eosinophils Percent Auto 3.4 % (0-4); Hematocrit 40.8 % (42.0-52.0); Hemoglobin 13.2 g/dl (14.0-18.0); Imm Gran Abs Auto 0.02 X10*3/uL (0.00-0.03); Imm Gran Pct Auto 0.3 % (0.0-0.4); Lymphocytes Absolute Auto 2.1 X10*3/uL (1.2-4.9); Mean Corpuscular HGB Conc 32.4 g/dl (31.0-36.0); Mean Corpuscular Hemoglobin 27.9 pg (27.0-33.0); Mean Corpuscular Volume 86.3 fL (80.0-98.0); Monocytes Absolute Auto 0.7 X10*3/uL (0.1-1.2); Monocytes Percent Auto 10.9 % (2-11); Neutrophils Absolute Auto 3.6 x10*3/uL (2.0-8.3); Neutrophils Percent Auto 53.5 % (45-73); Platelet Count 228 X10*3/uL (160-400); Red Blood Count 4.73 X10*6/uL (4.60-5.80); Red Cell Distribution Width 13.2 % (11.0-16.0); White Blood Count 6.8 X10*3/uL (4.8-10.8)
[2021-05-28 06:52] LABS: Anion Gap 14 (12-20); Blood Urea Nitrogen 14 mg/dL (9-16); Calcium 9.4 mg/dL (8.4-10.2); Carbon Dioxide 25 mmol/L (22-29); Chloride 106 mmol/L (96-108); Creatinine Clr Calc Pharmacy 77.7; Estimated Glomerular Filt Rate > 60; Glucose Random 117 mg/dL (60-115); Potassium 4.7 mmol/L (3.3-5.1); Sodium 140 mmol/L (135-145)
[2021-05-28 07:10] VITALS: BP 128/72; PULSE 62; RESP 18; TEMP 36.7; O2SAT 98
--- NOTE | 2021-05-28 08:18 | P.PNIM_ITS ---
Subjective Subjective Date of Service: 05/28/21 Interval History: afib with rvr Physical Exam Vital Signs: Vital Signs: Last Vital Signs Temp 98.0 F 05/28/21 07:10 Pulse 62 05/28/21 07:10 Resp 18 05/28/21 07:10 BP 128/72 05/28/21 07:10 Pulse Ox 98 05/28/21 07:10 BMI result Body Mass Index 31.6 Objective Data Active Medications Enoxaparin Sodium (Enoxaparin Sodium 120 Mg/0.8 Ml Syringe) 110 mg SUBCUT Q12H [facility] Last Admin: 05/27/21 23:59 Dose: 110 mg Documented by: NEGRO Diltiazem HCl 125 mg/ Sodium (Chloride) 125 mls @ 0 mls/hr IVCONT .Q0M [facility]; Protocol Last Titration: 05/27/21 22:26 Dose: 0 mg/hr, 0 mls/hr Documented by: BANDAR Pharmacy Consult (Consult Rx Perform Med Rec) 1 each MISCELLANE ONCE PRN PRN Reason: Consult order Sodium Chloride (0.9 % Sodium Chloride Flush 3 Ml Syringe) 3 ml IVFLUSH QSHIFT [facility] Last Admin: 05/28/21 00:00 Dose: 3 ml Documented by: NEGRO Labs CBC & Chem 7: 05/28/21 06:08 05/28/21 06:08 Labs: Laboratory Results - last 24 hr 05/27/21 05/27/21 05/27/21 12:18 12:18 12:28 MCV 84.7 MCH 28.5 MCHC 33.6 RDW 13.1 Plt Count 224 MPV 10.9 Immature Gran % (Auto) 0.3 Neut % (Auto) 63.1 Lymph % (Auto) 22.9 [place] % (Auto) 10.3 Eos % (Auto) 2.8 Baso % (Auto) 0.6 Lymph # (Auto) 1.7 [place] # (Auto) 0.7 Eos # (Auto) 0.2 Baso # (Auto) 0.0 Abs Immat Gran (auto) 0.02 Absolute Neuts (auto) 4.6 Absolute Nucleated RBC 0.000 Nucleated RBC % (auto) 0.0 PT INR APTT Anion Gap 13 Creatinine 0.98 Estim Creat Clear Calc 92.0 Estimated GFR > 60 Random Glucose 114 Calcium 9.7 Total Bilirubin 0.4 Direct Bilirubin < 0.2 AST 20 ALT 12 Alkaline Phosphatase 73 Total Protein 7.3 Albumin 4.6 TSH 2.11 Urine Color Urine Appearance Urine pH Ur Specific [place] Urine Protein Urine Glucose (UA) Urine Ketones Urine Blood Urine Nitrite Ur Leukocyte Esterase COVID-19 ([facility]) COVID-19 Clin Com 05/27/21 05/27/21 05/27/21 12:28 12:28 12:28 MCV 85.6 MCH 28.1 MCHC 32.8 RDW 12.9 Plt Count 228 MPV 11.2 Immature Gran % (Auto) Neut % (Auto) Lymph % (Auto) [place] % (Auto) Eos % (Auto) Baso % (Auto) Lymph # (Auto) [place] # (Auto) Eos # (Auto) Baso # (Auto) Abs Immat Gran (auto) Absolute Neuts (auto) Absolute Nucleated RBC 0.000 Nucleated RBC % (auto) 0.0 PT 11.3 INR 1.0 APTT 36.9 Anion Gap Creatinine Estim Creat Clear Calc Estimated GFR Random Glucose Calcium Total Bilirubin Direct Bilirubin AST ALT Alkaline Phosphatase Total Protein Albumin TSH Urine Color Urine Appearance Urine pH Ur Specific [place] Urine Protein Urine Glucose (UA) Urine Ketones Urine Blood Urine Nitrite Ur Leukocyte Esterase COVID-19 ([facility]) Negative COVID-19 Clin Com See Note 05/27/21 05/28/21 05/28/21 13:04 06:08 06:08 MCV 86.3 MCH 27.9 MCHC 32.4 RDW 13.2 Plt Count 228 MPV 11.0 Immature Gran % (Auto) 0.3 Neut % (Auto) 53.5 Lymph % (Auto) 31.0 [place] % (Auto) 10.9 Eos % (Auto) 3.4 Baso % (Auto) 0.9 Lymph # (Auto) 2.1 [place] # (Auto) 0.7 Eos # (Auto) 0.2 Baso # (Auto) 0.1 Abs Immat Gran (auto) 0.02 Absolute Neuts (auto) 3.6 Absolute Nucleated RBC 0.000 Nucleated RBC % (auto) 0.0 PT INR APTT Anion Gap 14 Creatinine 1.16 Estim Creat Clear Calc 77.7 Estimated GFR > 60 Random Glucose 117 H Calcium 9.4 Total Bilirubin Direct Bilirubin AST ALT Alkaline Phosphatase Total Protein Albumin TSH Urine Color STRAW Urine Appearance CLEAR Urine pH 5.5 Ur Specific [place] <= 1.005 Urine Protein NEG Urine Glucose (UA) NEG Urine Ketones NEG Urine Blood NEG Urine Nitrite NEG Ur Leukocyte Esterase NEG COVID-19 ([facility]) COVID-19 Clin Com Assessment and Plan Plan 71-year-old male with history of palpitations, intermittent dizziness unclear if he knows that afib in the past. 1. afib with rvr troponin x1 neg, next pending check tsh on cardizem drip, given lovenox in ed echo done . ?cardio evaluation-noted: continue po cardizem , AC with lovenox 2. htn:continue lisinopril 3. Hlp: Not on nay meds , will check lipid panel in am. 4. Haemrroids : patient says bleed 1-2 /month will add surgery eval -since patient has Haemrroids , need AC due to Afib. 5. dvt prophylax: s/c lovenox. Quality Stroke Does the patient have a stroke diagnosis?: No VTE Prior VTE?: No VTE Risk Level:: Medical - moderate - high VTE Device Contraindication: N/A - Device Ordered VTE Drug Contraindication: N/A - Med Ordered
--- NOTE | 2021-05-28 08:34 | MHC.CM.PN ---
CM met with Patient at bedside and addressed IMM with him, providing him with the original and placing a copy on the chart. Patient lives in a house with his /HCP and his [id number], Eamptnfz-[id number]-Yym, Step Daughter and he is functionally independent, requiring no DME [employer]. Patient's goal is home/no services and CM has initiated and will follow for dc planning. Patient has not received any Covid vax and his PCP is Dr. Naren Moreno.
--- NOTE | 2021-05-28 09:30 | CA_ITS ---
Transthoracic Echocardiogram Patient (Last, First, Middle): Earnest Cerna, Gender: Male Date of : 1950 Age: 71 Procedure Date: 05/28/2021 Procedure Type: Transthoracic Echocardiogram Location: [facility] [place] Height: 185.42 cm Weight: 108.41 kg BSA: 2.32 m2 Heart Rate: bpm BP: 144 / 99 mmHg Revenue Cycle Manager: VH/TO Referring MD: Florence Jose MD Symptoms: new afib Study Quality: Fair ECG Rhythm: Sinus Conclusions: - Normal left ventricular size, thickness, systolic function, and wall motion. The visually estimated ejection fraction is between 55-60%. Diastolic function is normal for age. - Normal right ventricular cavity size and systolic function. - The left atrium is normal in size. - There is mild dilatation of the ascending aorta measuring 3.80 cm. Findings Left Ventricle Normal left ventricular size, thickness, systolic function, and wall motion. The visually estimated ejection fraction is between 55-60%. Diastolic function is normal for age. Right Ventricle Normal right ventricular cavity size and systolic function. Atria The left atrium is normal in size. The right atrium is normal in size. Aortic Valve Normal aortic valve structure and function. There is no aortic valve stenosis. There is trace (trivial) aortic valve regurgitation. Mitral Valve The mitral valve appears normal. There is trace mitral valve regurgitation. There is no mitral valve stenosis. Pulmonic Valve Normal pulmonic valve structure and function. There is trace pulmonic valve regurgitation. Tricuspid Valve Normal tricuspid valve structure and function. There is trace tricuspid valve regurgitation. Tricuspid regurgitation envelope is inadequate for calculation of right ventricular systolic pressure. Normal right atrial pressure. Great Vessels There is mild dilatation of the ascending aorta measuring 3.80 cm. The visualized portions of the pulmonary artery and branches are normal. Venous The inferior vena cava is normal in size and collapses greater than 50% with inspiration. Pericardium/Pleural There is no evidence of pericardial effusion. Prior Study Comparison No prior study available for comparison. Measurements 2D Linear Measurements IVSd: 0.85 0.6-0.9/0.6-1.0 cm LVIDd: 4.90 3.9-5.3/4.2-5.9 cm LVIDd Index: 2.11 2.4-3.2/2.2-3.1 cm/m2 LVIDs: 3.01 2.0-3.6 cm LVPWd: 0.85 0.7-1.1 cm Ao Root: 3.80 2.1-3.5 cm LA Diam: 4.30 2.7-3.8/3.0-4.0 cm LAIDs Index: 1.85 1.5-2.3 cm/m2 LV Mass: 176.78 67-162/88-224 g LV Mass Index: 76.20 43-95/49-115 g/m2 LVOT Diam: 2.10 3.0+(-)1.3 cm 2D Systolic Function EF 4C: 59.70 >55% EF 2C: 59.10 >55% EF BiP: 60.80 >55% Mitral Valve MV Pk E: 0.69 MV PK A: 0.42 MV Decel Time: 312.00 E/A: 1.60 E'Lateral: 11.60 E'Medial: 8.27 E/E' Med: 8.30 E/E' Lat: 5.90 PHT: 91.00 MVA PHT: 2.42 Decel [place]: 2.21 Aortic Valve AoV Pk [place]: 1.10 AoV Mn [place]: 0.82 AoV VTI: 0.26 AoV Pk Grad: 5.00 Aov Mn Grad: 3.00 JAYSON Cont.VTI: 2.27 LVOT LVOT Pk [place]: 0.77 LVOT Mn [place]: 0.56 LVOT VTI: 0.17 LVOT Pk Grad: 2.00 LVOT Mn Grad: 1.00 LVOT Diam: 2.10 LVOT Area: 3.46 Diastolic Function MV Pk E: 0.69 MV Pk A: 0.42 E/A: 1.60 E'Medial: 8.27 E/E' Med: 8.30 E' Laterial: 11.60 E/E' Lat: 5.90 Right Ventricle TAPSE (mm): 23.00 TVS' [place]: 11.20 Tricuspid Valve TR Pk [place]: 2.32 TR Pk Grad: 22.00 Great Vessels Aorta Ao Root-2D: 3.80 2.0-3.7 cm Ao Asc: 3.80 2.1-3.4 cm Pulmonary Valve PV Pk [place]: 0.80 Peak PV Grad: 3.00 Updated in Other Vendor System with Status of Final Pillo Foster MD electronically signed on 05/28/2021 5:07:07 PM with status of Final
[2021-05-28] MEDS: 0.9 % Sodium Chloride Flush 3 ML SYRINGE IVFLUSH ×2 (09:52)
[2021-05-28 11:07] VITALS: BP 135/69; PULSE 69; RESP 18; TEMP 36.2; O2SAT 98
--- NOTE | 2021-05-28 12:14 | PM.DS ---
DS: Providers Provider Date of Service: 05/28/21 Date of admission: 05/27/21 14:42 Primary care physician: Naren Moreno MD Consults: 05/27/21 14:44 Consult to Cardiology Routine Consulting Provider: [facility] [place] Cardiovascular Services Reason for consultation: afib Has provider been notified: No DS: Diagnosis Discharge Diagnosis (1) Atrial fibrillation: Status: Acute (2) HTN (hypertension): Status: Acute (3) Hypercholesteremia: Status: Acute DS: Summary Hospital Course Hospital Course: HPI:71 y/o M with possible new afib-patient says that he has palpitations and intermittent dizziness from almost a year-he went to his doctor? and half month cough or palpitations and that time stress test was done (02/07/21) seems fine. Patient has palpitations.? Intermittent dizziness as per patient. Denies any blurred vision or weakness or numbness Denies any new complaint of chest pain or shortness of breath or abdominal pain or fever or chills or nausea or vomiting Denies any cough Past medical history:? Hypertension, hypercholesteremia, history of hepatitis-C in the past he said he received treatment for that.? History of hemorrhoids. Past surgical history has history of right elbow surgery after accident. Social history lives with his totally independent does not need any help with ADLs.? Denies any use of recreational drugs or smoking, has occasional alcohol use 1 beer /week. hospital course: Patient came to hospital because of AFib with RVR-started on rate heart control medication IV Cardizem drip, and blood thinner stroke prevention: Subsequently patient heart rate seems better patient denies any new symptoms, his heart enzymes are fine, echo done and reading pending, cardiology saw the patient recommended to switch to p.o. Cardizem and Eliquis, patient is asymptomatic , so fu with cardiology with echo prelim neg-also added flecainde katie, d/w patient in detail.. Further management outpatient with Cardiology Above management discussed with the patient in detail length he understand and in agreement with the above plan, time spent 50 minutes and 50% time spent on counseling. Significant findings: As above. Procedures performed: None. Treatment and response: As above. Complications: None. Time Spent with Patient Time attestation: Total time spent providing and/or coordinating discharge services: Discharge coordination time: Greater than 30 minutes Quality: Stroke Does the patient have a stroke diagnosis?: No Physical Exam Vital Signs: Vital Signs: Last Vital Signs Temp 97.2 F 05/28/21 11:07 Pulse 69 05/28/21 11:07 Resp 18 05/28/21 11:07 BP 135/69 05/28/21 11:07 Pulse Ox 98 05/28/21 11:07 BMI result Body Mass Index 31.6 Appearance: Alert.? Oriented X3.? not in distress.? Eyes: Pupils equal, round and reactive to light.? Sclera nonicteric.? ENT: Pharynx normal.? Moist mucous membranes. cvs: rrr, [id number] . res: clear to auscultation ,no rhonchii or wheezing abd: no rebound or guarding ,nt, bs present. ext pulses present , no cyanosis ,Gait well balanced well coordinated. neuro: axo3 , nonfocal. DS: Data Data Completed and Pending Labs on day of discharge: Laboratory Results - last 24 hr 05/27/21 05/27/21 05/27/21 12:18 12:18 12:18 WBC 7.2 RBC 4.71 Hgb 13.4 L Hct 39.9 L MCV 84.7 MCH 28.5 MCHC 33.6 RDW 13.1 Plt Count 224 MPV 10.9 Immature Gran % (Auto) 0.3 Neut % (Auto) 63.1 Lymph % (Auto) 22.9 [place] % (Auto) 10.3 Eos % (Auto) 2.8 Baso % (Auto) 0.6 Lymph # (Auto) 1.7 [place] # (Auto) 0.7 Eos # (Auto) 0.2 Baso # (Auto) 0.0 Abs Immat Gran (auto) 0.02 Absolute Neuts (auto) 4.6 Absolute Nucleated RBC 0.000 Nucleated RBC % (auto) 0.0 PT INR APTT Sodium 141 Potassium 4.5 Chloride 109 H Carbon Dioxide 24 Anion Gap 13 BUN 13 Creatinine 0.98 Estim Creat Clear Calc 92.0 Estimated GFR > 60 Random Glucose 114 Calcium 9.7 Total Bilirubin 0.4 Direct Bilirubin < 0.2 AST 20 ALT 12 Alkaline Phosphatase 73 Troponin I High Sens < 3.5 Total Protein 7.3 Albumin 4.6 TSH Urine Color Urine Appearance Urine pH Ur Specific [place] Urine Protein Urine Glucose (UA) Urine Ketones Urine Blood Urine Nitrite Ur Leukocyte Esterase COVID-19 ([facility]) COVID-19 Clin Com 05/27/21 05/27/21 05/27/21 12:28 12:28 12:28 WBC 6.8 RBC 4.80 Hgb 13.5 L Hct 41.1 L MCV 85.6 MCH 28.1 MCHC 32.8 RDW 12.9 Plt Count 228 MPV 11.2 Immature Gran % (Auto) Neut % (Auto) Lymph % (Auto) [place] % (Auto) Eos % (Auto) Baso % (Auto) Lymph # (Auto) [place] # (Auto) Eos # (Auto) Baso # (Auto) Abs Immat Gran (auto) Absolute Neuts (auto) Absolute Nucleated RBC 0.000 Nucleated RBC % (auto) 0.0 PT 11.3 INR 1.0 APTT 36.9 Sodium Potassium Chloride Carbon Dioxide Anion Gap BUN Creatinine Estim Creat Clear Calc Estimated GFR Random Glucose Calcium Total Bilirubin Direct Bilirubin AST ALT Alkaline Phosphatase Troponin I High Sens Total Protein Albumin TSH 2.11 Urine Color Urine Appearance Urine pH Ur Specific [place] Urine Protein Urine Glucose (UA) Urine Ketones Urine Blood Urine Nitrite Ur Leukocyte Esterase COVID-19 ([facility]) COVID-19 Clin Com 05/27/21 05/27/21 05/27/21 12:28 13:04 16:36 WBC RBC Hgb Hct MCV MCH MCHC RDW Plt Count MPV Immature Gran % (Auto) Neut % (Auto) Lymph % (Auto) [place] % (Auto) Eos % (Auto) Baso % (Auto) Lymph # (Auto) [place] # (Auto) Eos # (Auto) Baso # (Auto) Abs Immat Gran (auto) Absolute Neuts (auto) Absolute Nucleated RBC Nucleated RBC % (auto) PT INR APTT Sodium Potassium Chloride Carbon Dioxide Anion Gap BUN Creatinine Estim Creat Clear Calc Estimated GFR Random Glucose Calcium Total Bilirubin Direct Bilirubin AST ALT Alkaline Phosphatase Troponin I High Sens 5.3 D Total Protein Albumin TSH Urine Color STRAW Urine Appearance CLEAR Urine pH 5.5 Ur Specific [place] <= 1.005 Urine Protein NEG Urine Glucose (UA) NEG Urine Ketones NEG Urine Blood NEG Urine Nitrite NEG Ur Leukocyte Esterase NEG COVID-19 ([facility]) Negative COVID-19 Clin Com See Note 05/28/21 05/28/21 06:08 06:08 WBC 6.8 RBC 4.73 Hgb 13.2 L Hct 40.8 L MCV 86.3 MCH 27.9 MCHC 32.4 RDW 13.2 Plt Count 228 MPV 11.0 Immature Gran % (Auto) 0.3 Neut % (Auto) 53.5 Lymph % (Auto) 31.0 [place] % (Auto) 10.9 Eos % (Auto) 3.4 Baso % (Auto) 0.9 Lymph # (Auto) 2.1 [place] # (Auto) 0.7 Eos # (Auto) 0.2 Baso # (Auto) 0.1 Abs Immat Gran (auto) 0.02 Absolute Neuts (auto) 3.6 Absolute Nucleated RBC 0.000 Nucleated RBC % (auto) 0.0 PT INR APTT Sodium 140 Potassium 4.7 Chloride 106 Carbon Dioxide 25 Anion Gap 14 BUN 14 Creatinine 1.16 Estim Creat Clear Calc 77.7 Estimated GFR > 60 Random Glucose 117 H Calcium 9.4 Total Bilirubin Direct Bilirubin AST ALT Alkaline Phosphatase Troponin I High Sens Total Protein Albumin TSH Urine Color Urine Appearance Urine pH Ur Specific [place] Urine Protein Urine Glucose (UA) Urine Ketones Urine Blood Urine Nitrite Ur Leukocyte Esterase COVID-19 ([facility]) COVID-19 Clin Com Additional Comments Additional comments: echo done and pending Discharge Plan Discharge Anticipated Discharge Date/Time: 05/28/21 18:09 Patient Disposition: Home, Self-Care Discharge Diagnosis: afib with rvr , htn Referrals: Naren Moreno MD [Primary Care Provider] - 1 Week Discharge Medications: New hydrocortisone [Proctozone-HC] 2.5 % Cream With Perineal Applicator 1 appl NV BEDTIME Qty: 30 0RF diltiazem HCl [Cardizem CD] 120 mg Capsule,Extended Release 24hr 120 mg PO DAILY Qty: 30 0RF Protocol: Hold for SBP/HR < HOLD for SBP < : 90 HOLD for HR < : 60 lisinopril 5 mg Tablet 5 mg PO DAILY Qty: 30 0RF Protocol: Hold for SBP< HOLD for SBP < : 90 Continued cholecalciferol (vitamin D3) 25 mcg (1,000 unit) tablet 25 mcg PO DAILY Qty: 30 3RF multivitamin Tablet 1 tab PO DAILY 0RF omega 5-ejd-cxm-fish oil [Fish Oil] 1,000 mg (120 mg-180 mg) Capsule 1 cap PO DAILY 0RF Discontinued lisinopril 20 mg tablet 20 mg PO DAILY Qty: 30 6RF No Action flecainide 150 mg tablet 300 mg PO DAILY PRN (Reason: afib) Qty: 20 0RF Eliquis 5 mg tablet 5 mg PO BID 90 Days Qty: 180 1RF Discharge Orders: Discharge Order (Routine); Ordered 05/28/21 Ordered By: Florence Jose Diet: advance to usual diet Activity on Discharge: As tolerated Stand Alone Forms: Patient Portal Discharge page Care Plan Goals: Patient came to hospital because of AFib with RVR-started on rate heart control medication IV Cardizem drip, and blood thinner stroke prevention: Subsequently patient heart rate seems better patient denies any new symptoms, his heart enzymes are fine, echo done and reading pending, cardiology saw the patient recommended to switch to p.o. Cardizem and Eliquis, patient is asymptomatic , so fu with cardiology with echo outpatiently-also added flecainde prn, d/w patient in detail.. Further management outpatient with Cardiology.--Follow up with Dr. Foster, office will contact you Health Concerns: As above. Plan of Treatment: As above. Assessment: As above. Discharge Date/Time: 05/28/21 18:30
[2021-05-28 12:17] LABS: INTERNATIONAL NORM RATIO 1.1 (0.9-1.1); Prothrombin Time 12.8 SEC (9.9-13.0)
[2021-05-28] MEDS: Apixaban 5 MG TABLET PO (12:23)
[2021-05-28] MEDS: dilTIAZem HCL CD 120 MG CAP.ER.DEG PO (12:23)
--- NOTE | 2021-05-28 14:52 | P.CONCA_ITS ---
History of Present Illness History of Present Illness Date of Service: 05/28/21 Requesting physician: Florence Jose Chief complaint: new onset afib Narrative: Pleasant 71 gentleman presenting with anxiety and palpitations. He was noted to be in atrial fibrillation rapid ventricular response. He said he has similar episodes previously and was seen by his primary care physician underwent exercise stress test. I reviewed his stress test from January where he was able to exercise for 9 minutes achieving 0.4 metabolic equivalents without any ECG changes or significant symptoms. He now presented for palpitations and was in atrial fibrillation with rapid ventricular response. He said his symptoms were similar to January when he had stress testing done for anxiety and palpitations like symptoms. He has broken out of AFib at this stage. He has history of hemorrhoids and has bleeding 2 times a month which she is concerned about. Denies any chest pain or shortness of breath otherwise. FORMERLY [facility], [facility] Social History Social History Household Members: Spouse and Family Housing: House Alcohol intake: former Patient Tobacco Use Status: Former Tobacco user service: Yes Current occupational status: retired [employer] Allergies Allergy/AdvReac Type Severity Reaction Status Date / Time No Known Allergies Allergy Verified 02/28/20 09:12 [No Known Allergies*] Active Medications: Current Medications Apixaban (Apixaban 5 Mg Tablet) 5 mg PO BID [facility] Last Admin: 05/28/21 12:23 Dose: 5 mg Documented by: Diltiazem HCl (Diltiazem Hcl Cd 120 Mg Cap.Er.Deg) 120 mg PO DAILY [facility]; Protocol Last Admin: 05/28/21 12:23 Dose: 120 mg Documented by: Enoxaparin Sodium (Enoxaparin Sodium 120 Mg/0.8 Ml Syringe) 110 mg SUBCUT Q12H [facility] Lisinopril (Lisinopril 5 Mg Tablet) 5 mg PO DAILY [facility]; Protocol Multivitamins/Vitamin C (Multivitamin Tablet) 1 tab PO DAILY [facility] Pharmacy Consult (Consult Rx Perform Med Rec) 1 each MISCELLANE ONCE PRN PRN Reason: Consult order Sodium Chloride (0.9 % Sodium Chloride Flush 3 Ml Syringe) 3 ml IVFLUSH QSHIFT [facility] Last Admin: 05/28/21 09:52 Dose: 3 ml Documented by: Vitamin D (Cholecalciferol (Vitamin D3) 25 Mcg Tablet) 25 mcg PO DAILY [facility] Home Medications Medication Instructions Recorded Confirmed Last Taken Type multivitamin 1 tab PO DAILY 05/27/21 05/27/21 05/27/21 History omega 4-sgn-cpl-fish oil 1,000 mg 1 cap PO DAILY 05/27/21 05/27/21 05/27/21 History (120 mg-180 mg) capsule (Fish Oil) Physical Exam Vital Signs: Vital Signs: Last Vital Signs Temp 97.2 F 05/28/21 11:07 Pulse 69 05/28/21 11:07 Resp 18 05/28/21 11:07 BP 135/69 05/28/21 11:07 Pulse Ox 98 05/28/21 11:07 BMI result Body Mass Index 31.6 GENERAL APPEARANCE: in no acute distress, pleasant. NECK: no carotid bruit, no jugular venous distention. SKIN: no suspicious lesions, warm and dry. HEART: no murmurs, regular rate and rhythm. LUNGS: clear to auscultation bilaterally. ABDOMEN: soft, nontender. EXTREMITIES: no edema. PERIPHERAL PULSES: equal. NEUROLOGIC: No gross deficits, AAO X 3 Objective Labs and Meds Result diagrams: 05/28/21 06:08 05/28/21 06:08 Lab results: Laboratory Results - last 24 hr 05/27/21 05/27/21 05/28/21 12:18 16:36 06:08 WBC 6.8 RBC 4.73 Hgb 13.2 L Hct 40.8 L MCV 86.3 MCH 27.9 MCHC 32.4 RDW 13.2 Plt Count 228 MPV 11.0 Immature Gran % (Auto) 0.3 Neut % (Auto) 53.5 Lymph % (Auto) 31.0 [place] % (Auto) 10.9 Eos % (Auto) 3.4 Baso % (Auto) 0.9 Lymph # (Auto) 2.1 [place] # (Auto) 0.7 Eos # (Auto) 0.2 Baso # (Auto) 0.1 Abs Immat Gran (auto) 0.02 Absolute Neuts (auto) 3.6 Absolute Nucleated RBC 0.000 Nucleated RBC % (auto) 0.0 PT INR Sodium Potassium Chloride Carbon Dioxide Anion Gap BUN Creatinine Estim Creat Clear Calc Estimated GFR Random Glucose Calcium Total Bilirubin 0.4 Direct Bilirubin < 0.2 AST 20 ALT 12 Alkaline Phosphatase 73 Troponin I High Sens 5.3 D Total Protein 7.3 Albumin 4.6 05/28/21 05/28/21 06:08 12:05 WBC RBC Hgb Hct MCV MCH MCHC RDW Plt Count MPV Immature Gran % (Auto) Neut % (Auto) Lymph % (Auto) [place] % (Auto) Eos % (Auto) Baso % (Auto) Lymph # (Auto) [place] # (Auto) Eos # (Auto) Baso # (Auto) Abs Immat Gran (auto) Absolute Neuts (auto) Absolute Nucleated RBC Nucleated RBC % (auto) PT 12.8 INR 1.1 Sodium 140 Potassium 4.7 Chloride 106 Carbon Dioxide 25 Anion Gap 14 BUN 14 Creatinine 1.16 Estim Creat Clear Calc 77.7 Estimated GFR > 60 Random Glucose 117 H Calcium 9.4 Total Bilirubin Direct Bilirubin AST ALT Alkaline Phosphatase Troponin I High Sens Total Protein Albumin Assessment and Plan (1) Atrial fibrillation: Status: Acute Plan Pleasant 71 gentleman presenting for paroxysmal atrial fibrillation. One of his EKG was quite regular and looks like atrial flutter but most of the EKGs are consistent with atrial fibrillation. He has broken out of AFib on his own. I think he needs anticoagulation as his chads Vasc score is 2. He is concerned because he has hemorrhoids and leads 2 times a month. I think a surgical assessment may help in this scenario. continue diltiazem 120 mg once a day. Anticoagulation with Eliquis or Xarelto. Flecainide 300 mg as needed for persistent symptoms. We will do pill in the pocket approach in this case and he can use flecainide if he has prolonged episode of atrial fibrillation and this way we may be able to avoid hospitalization. If he has frequent episodes and required multiple doses of f lecainide then we will put him on flecainide b.i.d.. With his recent stress testing done and no anginal symptoms I think we can start flecainide without any further testing. Thank you for allowing me to participate in the care of your patient. Please feel free to contact me if you have any questions. Procedures Date of Service Date of Service: 05/28/21
[2021-05-28 15:31] VITALS: BP 135/78; PULSE 67; RESP 14; TEMP 35.6; O2SAT 98
--- NOTE | 2021-05-28 16:51 | P.CONGS_ITS ---
History of Present Illness Consult details Consult date: 05/28/21 Narrative: 71-year-old male patient admitted due to new onset rapid AFib. He is being placed on oral anticoagulation but reports a long history of internal hemorrhoids which bleed on occasion. He reports undergoing numerous banding procedures while living in [place] but denies a surgical hemorrhoidectomy. He reports no pain with moving his bowels and denies the need to strain to have a bowel movement. He moves his bowels every 1-2 days and denies bleeding on every bowel movement. He is currently in not using any preparation agents or Sitz baths. Review of Systems Review of Systems: Yes all other systems are reviewed and are negative Constitutional: Constitutional: Denies chills and Denies night sweats Cardiovascular: Cardiovascular: Reports as per HPI, Reports irregular heart rhythm, Reports palpitations and Denies dyspnea Respiratory: Respiratory: Denies chest congestion, Denies cough and Denies dyspnea Gastrointestinal: Gastrointestinal: Denies abdominal pain, Denies bloating, Reports hematochezia, Denies constipation, Denies GI cramping and Denies loose stools Musculoskeletal: Musculoskeletal: Reports no additional musculoskeletal complaints Endocrine: Endocrine: Reports palpitations Hematologic/Lymphatic: Hematologic/Lymphatic: Denies lymphadenopathy PMFSH Social History Social History Household Members: Spouse and Family Housing: House Alcohol intake: former Patient Tobacco Use Status: Former Tobacco user service: Yes Current occupational status: retired Meds Allergies Allergy/AdvReac Type Severity Reaction Status Date / Time No Known Allergies Allergy Verified 02/28/20 09:12 [No Known Allergies*] Active Medications: Current Medications Apixaban (Apixaban 5 Mg Tablet) 5 mg PO BID [facility] Last Admin: 05/28/21 12:23 Dose: 5 mg Documented by: Diltiazem HCl (Diltiazem Hcl Cd 120 Mg Cap.Er.Deg) 120 mg PO DAILY [facility]; Pro tocol Last Admin: 05/28/21 12:23 Dose: 120 mg Documented by: Enoxaparin Sodium (Enoxaparin Sodium 120 Mg/0.8 Ml Syringe) 110 mg SUBCUT Q12H [facility] Hydrocortisone (Hydrocortisone 2.5 % Rectal Cr 30 Gm Tube) 1 appl [place] BEDTIME [facility] Lisinopril (Lisinopril 5 Mg Tablet) 5 mg PO DAILY [facility]; Protocol Multivitamins/Vitamin C (Multivitamin Tablet) 1 tab PO DAILY [facility] Pharmacy Consult (Consult Rx Perform Med Rec) 1 each MISCELLANE ONCE PRN PRN Reason: Consult order Sodium Chloride (0.9 % Sodium Chloride Flush 3 Ml Syringe) 3 ml IVFLUSH QSHIFT [facility] Last Admin: 05/28/21 15:57 Dose: Not Given Documented by: Vitamin D (Cholecalciferol (Vitamin D3) 25 Mcg Tablet) 25 mcg PO DAILY [facility] Home Medications Medication Instructions Recorded Confirmed Last Taken Type multivitamin 1 tab PO DAILY 05/27/21 05/27/21 05/27/21 History omega 8-omf-hsa-fish oil 1,000 mg 1 cap PO DAILY 05/27/21 05/27/21 05/27/21 History (120 mg-180 mg) capsule (Fish Oil) Physical Exam Vital Signs: Vital Signs: Last Vital Signs Temp 96.0 F L 05/28/21 15:31 Pulse 67 05/28/21 15:31 Resp 14 05/28/21 15:31 BP 135/78 05/28/21 15:31 Pulse Ox 98 05/28/21 15:31 BMI result Body Mass Index 31.6 Const: General: no acute distress and well developed Nutritional Appearance: well nourished Orientation/consciousness: patient oriented x3 Limitations: no limitations HENMT: Head: Yes normocephalic and Yes atraumatic Ears: hearing grossly normal bilaterally Resp: Effort & Inspection: normal respiratory effort, no audible wheezes, no cough and no respiratory distress GI: Inspection: Yes normal to inspection Palpation (GI): Soft to palpation, nontender and no guarding Rectal Exam - Male: Yes visual inspection normal, Yes normal sphincter tone, No External hemorrhoid(s) present, No Rectal p rolapse, No Lesions present (GI), No Anal fissure(s) present and Yes hemorrhoids (No prolapsing internal hemorrhoids with Valsalva) Skin: General skin exam: no rashes or lesions noted, dry skin and no ecchymosis Neuro: General: patient oriented x3 Results Labs Result diagrams: 05/28/21 06:08 05/28/21 06:08 Labs: Abnormal lab results 05/28/21 05/28/21 Range/Units 06:08 06:08 Hgb 13.2 L (14.0-18.0) g/dl Hct 40.8 L (42.0-52.0) % Random Glucose 117 H (60-115) mg/dL Short CBC 05/28/21 Range/Units 06:08 WBC 6.8 (4.8-10.8) X10*3/uL Hgb 13.2 L (14.0-18.0) g/dl Hct 40.8 L (42.0-52.0) % Plt Count 228 (160-400) X10*3/uL BMP 05/28/21 06:08 Sodium 140 Potassium 4.7 Chloride 106 Carbon Dioxide 25 BUN 14 Creatinine 1.16 Calcium 9.4 Urine 05/27/21 Range/Units 13:04 Urine Color STRAW Urine Appearance CLEAR Urine pH 5.5 (5.0-8.0) Ur Specific [place] <= 1.005 (1.005-1.025) Urine Protein NEG (NEG-TRACE) MG/DL Urine Glucose (UA) NEG (NEG) MG/DL All other labs normal. Assessment and Plan (1) Internal hemorrhoids: Status: Acute Plan 71-year-old male patient with history of bleeding hemorrhoids and a previous history of hemorrhoidal banding in [place] now presenting with rapid AFib. Patient is to be started on oral anticoagulation. Surgical consultation was requested to determine if a surgical procedure should be performed prior to the starting of oral anticoagulation. I would not recommend hemorrhoidectomy at this time. Would recommend starting hydrocortisone anal preparation. He should also consider stool softeners and fiber therapy to limit any straining with bow el movements. He should follow up in my office in approximately 1-2 weeks following discharge for re-evaluation. Discussed with Dr. Jose Procedures Date of Service Date of Service: 05/28/21
== END 2021-05-28 18:30 | disposition home or self-care (01) | DRG 310 ==
LOC: HO.ED 14:08 → HO.EDOVER 14:50 → HO.IMC 15:19
PROVIDERS: Admitting Provider Internal Medicine; Emergency Provider Emergency Medicine; PCP Internal Medicine; Visit Provider Internal Medicine
DX: I48.0 Paroxysmal atrial fibrillation (principal); I10 Essential (primary) hypertension; E78.5 Hyperlipidemia, unspecified; Z20.822 Contact with and (suspected) exposure to COVID-19; Z87.891 Personal history of nicotine dependence; Z79.01 Long term (current) use of anticoagulants; Z79.899 Other long term (current) drug therapy
CPT/HCPCS: 36415; 80048; 80076; 81003; 84443; 84484; 85025; 85027; 85610; 85730; 87635; 93005; 93306; 96365; 96372; 99285; J1650

== ENCOUNTER → 2021-06-12 12:47 | Outpatient (BNVA) | payer MEDICARE, OTHER, SELFPAY | PROVIDERS: PCP Internal Medicine; Referring Provider Internal Medicine; Visit Provider Internal Medicine Cardiovascular Disease | DX: I48.92 Unspecified atrial flutter (principal) | CPT/HCPCS: 93005; 99202 ==

== ENCOUNTER 2021-06-14 12:28 | Day surgery (SDC) | payer MEDICARE, OTHER, SELFPAY ==
--- NOTE | 2021-06-13 10:00 | HO.ANESPROP2 ---
Documented by User: Mounika Woods NP 06/13/21 10:04 HPI - Anesthesia Eval Consult details Narrative: 71yo M for Transesophageal Echo and Cardioversion Eliquis for afib/flutter PMFSH Active Problems Active Problems: All Active Problems (Updated 06/12/21 @ 14:31 by Paulo Hogan MD) Atrial flutter with rapid ventricular response (Acute) Internal hemorrhoids (Acute) Hypercholesteremia (Acute) HTN (hypertension) (Acute) Atrial fibrillation (Acute) UTI (urinary tract infection) (Acute) COVID-19 (Acute) Encounter for screening laboratory testing for COVID-19 virus in asymptomatic patient (Acute) Past Medical History Medical History (Updated 06/13/21 @ 10:03 by Mounika Woods NP) Atrial fibrillation Atrial flutter with rapid ventricular response HTN (hypertension) Hypercholesteremia Family History Family History Father No problems noted. Mother Diabetes Surgical History Surgical History Hx of elbow surgery Social History Social History Household Members: Spouse and Family Housing: House Alcohol intake: former Patient Tobacco Use Status: Former Tobacco user Use of substances other than those prescribed or required for medical reasons: No Are you DNR?: No Advance Directives: No Advance Directives Information Provided: Yes Recently lost weight without trying: No service: Yes Current occupational status: retired Meds Allergies Allergy/AdvReac Type Severity Reaction Status Date / Time No Known Allergies Allergy Verified 02/28/20 09:12 [No Known Allergies*] Home Medications Medication Instructions Recorded Confirmed Last Taken Type multivitamin 1 tab PO DAILY 05/27/21 06/12/21 06/14/21 History omega 9-nyl-tie-fish oil 1,000 mg 1 cap PO DAILY 05/27/21 06/12/21 06/14/21 History (120 mg-180 mg) capsule (Fish Oil) Exam Exam Date and Time: June 13, 2021 1000 Narrative Narrative: EKG 05/2021 atrial flutter with variable conduction with rapid ventricular response ECHO 05/2021 Conclusions: - Normal left ventricular size, thickness, systolic function, and wall motion. The visually estimated ejection fraction is between 55-60%.? Diastolic function is normal for age. ? - Normal right ventricular cavity size and systolic function.? ? - The left atrium is normal in size. ? - There is mild dilatation of the ascending aorta measuring 3.80 cm. Exercise Stress 01/2021 Protocol: JULIAN ? Max HR: 144 BPM? 94% of? Pred: 152 BPM Max BP: 168/078 mmHG Max Work Load: 10.4 METS ? Exercise stress test with exercise 9 min of Julian protocol, without anginal ?symptoms, with isolated PACs, with normotensive response to exercise, without ?EKG changes meeting criteria for ischemia. Test reviewed with Dr Mcfadden. Assessment and Plan Assessment Anesthesia Assessment: Chart Reviewed Documented by User: Kelli Colon MD 06/14/21 14:11 [facility] Past Medical History Medical History (Updated 06/13/21 @ 10:03 by Mounika Woods NP) Atrial fibrillation Atrial flutter with rapid ventricular response HTN (hypertension) Hypercholesteremia Family History Family History Father No problems noted. Mother Diabetes Family history of problems with anesthesia: No Surgical History Surgical History Hx of elbow surgery History of Problems with Anesthesia: No Social History Social History Household Members: Spouse and Family Housing: House Alcohol intake: former Patient Tobacco Use Status: Former Tobacco user Use of substances other than those prescribed or required for medical reasons: No Are you DNR?: No Advance Directives: No Advance Directives Information Provided: Yes Recently lost weight without trying: No service: Yes Current occupational status: retired Meds Allergies Allergy/AdvReac Type Severity Reaction Status Date / Time No Known Allergies Allergy Verified 12/01/20 09:12 [No Known Allergies*] Home Medications Medication Instructions Recorded Confirmed Last Taken Type multivitamin 1 tab PO DAILY 05/27/21 06/12/21 06/14/21 History omega 1-awv-chl-fish oil 1,000 mg 1 cap PO DAILY 05/27/21 06/12/21 06/14/21 History (120 mg-180 mg) capsule (Fish Oil) Exam Airway Mallampati Class: II TM Dist: >3cm Neck ROM: Full Denture: Upper and Lower Assessment and Plan Assessment Anesthesia Assessment: Anesthesia Plan Discussed Final Anesthetic Review Family History of Problems with Anesthesia: No History of Problems with Anesthesia: No NPO: Yes ASA Class: III Final Preanesthetic Review: No Changes in Pt Med Stat, Meds/Allgs Chart Reviewed, Consent Obtained/Reviewed and Anes Risks/Benef Reviewed Patient Risk: Intermediate Procedure Risk: Intermediate Anesthetic Plan Anesthetic Plan: GA Disposition: Standard PACU
[2021-06-14] VITALS (7 sets, daily range): BP systolic 85–147; BP diastolic 51–68; PULSE 61–127; RESP 18–20; TEMP 36.1–36.8; O2SAT 97–100; BMI 30.9
--- NOTE | 2021-06-14 13:03 | CA_ITS ---
Transesophageal Echocardiogram Patient (Last, First, Middle): Earnest Cerna, Gender: Male Date of : 1950 Age: 71 Procedure Date: 06/14/2021 Procedure Type: Transesophageal Echocardiogram Location: [facility] Height: 182.88 cm Weight: kg Database Technician: [place] Referring MD: Paulo Hogan MD Symptoms: Afib, Pre cardioversion Conclusion: ??? There is no evidence of a thrombus in the left atrial appendage. Findings Procedure Information Consent was obtained prior to the procedure. Pre SARAH oral cavity was checked and revealed no overcrowding. The adult 3D probe was passed with no difficulty. Left Ventricle Normal left ventricular cavity size. Due to atrial flutter with rapid rate, difficult to assess LVEF. Probably low normal to mildly reduced. Right Ventricle Normal right ventricular cavity size and systolic function. Atria There is no evidence of a thrombus in the left atrial appendage. There is no evidence of interatrial shunt by color Doppler. Aortic Valve There is a normal trileaflet aortic valve. There is no aortic valve stenosis. Trace to mild aortic regurgitation peak Mitral Valve The mitral valve appears normal. There is trace mitral valve regurgitation. There is no mitral valve stenosis. Pulmonic Valve The pulmonic valve was not well visualized. Tricuspid Valve Normal tricuspid valve structure. There is trace tricuspid valve regurgitation. Great Vessels Small plaque is seen in the descending thoracic aorta. Pericardium/Pleural There is no evidence of pericardial effusion. Prior Study Comparison No significant change compared to prior study dated: 05/28/2021. Updated by Mesfin Mcfadden on 03:33 PM with Status of Final Mesfin Mcfadden MD electronically signed on 06/14/2021 3:33:03 PM with status of Final
[2021-06-14] MEDS: Lactated Ringers 1,000 ML 50 ML IVCONT (13:26)
--- NOTE | 2021-06-14 14:18 | MHC.SHP ---
Pre-Procedural Eval Section A Date of Service: 06/14/21 The patient is an INPATIENT: No Section B Chief Complaint: A-fib Allergies: Allergies Allergy/AdvReac Type Severity Reaction Status Date / Time No Known Allergies Allergy Verified 02/28/20 09:12 [No Known Allergies*] Plan I have reviewed the history and physical and performed a pertinent physical examination on my patient. No changes have occurred unless specified.
--- NOTE | 2021-06-14 14:56 | ECG_ITS ---
Test Reason : S/P CARDIOVERSION Blood Pressure : / mmHG Vent. Rate : 062 BPM Atrial Rate : 062 BPM P-R Int : 162 ms QRS Dur : 090 ms QT Int : 406 ms P-R-T Axes : 071 045 025 degrees QTc Int : 412 ms Normal sinus rhythm Normal ECG When compared with ECG of 27-MAY-2021 22:18, No significant change was found Referred By: Violeta Gandhi Electronically Signed By:VIOLETA GANDHI
--- NOTE | 2021-06-14 15:12 | HO.CARDIVERS ---
Cardioversion Procedure Note Cardioversion Date of Procedure: 06/14/2021 Ordering Provider: Performing Provider: Dr. Mcfadden Indication for Procedure: Persistent atrial flutter with symptoms. Pre-Op Diagnosis: Atrial flutter with rapid rate Post-Op Diagnosis: Sinus rhythm. SARAH findings (if SARAH Performed): No evidence of left atrial appendage thrombus. Please see independent SARAH report. History: 71-year-old male with atrial flutter that is not very controlled in spite of using flecainide as needed as well as significant dose of diltiazem. Hence referred for SARAH/cardioversion. Consent: Informed consent obtained. Procedure: After informed consent was obtained patient was taken to the operating room. A SARAH was was performed. There is no evidence of any left atrial appendage thrombus. Subsequently, 120 joules of synchronized shock was administered through pads in the anterior-posterior position. The rhythm converted from atrial flutter with rapid rate to sinus rhythm. Complications: None. Impression: Successful cardioversion from atrial flutter with rapid rate to sinus rhythm. Recommendations: Flecainide 150 mg b.i.d.; diltiazem CD 1 20 mg daily; continue anticoagulation. Can discuss needs for atrial flutter ablation as outpatient.
[2021-06-14] MEDS: Flecainide Acetate 50 MG TABLET 150 MG PO (15:21)
== END 2021-06-14 16:10 | disposition home or self-care (01) ==
PROVIDERS: PCP Family Medicine; Visit Provider Internal Medicine
DX: I48.92 Unspecified atrial flutter (principal); R06.02 Shortness of breath; Z79.01 Long term (current) use of anticoagulants; I10 Essential (primary) hypertension; Z79.899 Other long term (current) drug therapy; Z87.891 Personal history of nicotine dependence
CPT/HCPCS: 92960; 93005; 93312; J2250; J3010

== ENCOUNTER → 2021-06-21 09:50 | Outpatient (BNVA) | payer MEDICARE, OTHER, SELFPAY | PROVIDERS: PCP Family Medicine; Referring Provider Family Medicine; Visit Provider Internal Medicine Cardiovascular Disease | DX: Z13.89 Encounter for screening for other disorder (principal) ==

== ENCOUNTER → 2021-07-08 10:52 | Outpatient (REF) | payer MEDICARE, OTHER, SELFPAY ==
--- NOTE | 2021-07-08 10:54 | HM_ITS ---
* Total monitoring time 3 days. * Underlying rhythm is sinus. Average rate 64/Min. Range 51-103/min. * No atrial fibrillation or flutter or AV blocks or pauses. * Rare supraventricular ectopy with minimal burden. * No patient events. MTDD
== END ==
LOC: HO.CARD 10:52
PROVIDERS: Visit Provider Internal Medicine Cardiovascular Disease
DX: I48.91 Unspecified atrial fibrillation (principal)
CPT/HCPCS: 93242

== ENCOUNTER → 2021-07-30 14:05 | Outpatient (BNVA) | payer MEDICARE, OTHER, SELFPAY | PROVIDERS: PCP Family Medicine; Referring Provider Internal Medicine; Visit Provider Internal Medicine Cardiovascular Disease | DX: I48.92 Unspecified atrial flutter (principal); I42.9 Cardiomyopathy, unspecified; I10 Essential (primary) hypertension | CPT/HCPCS: 93005; 99212 ==

== ENCOUNTER 2021-09-05 09:43 | Outpatient (REF) | payer MEDICARE, OTHER, SELFPAY ==
--- NOTE | ~2021-09-05 | XR_ITS ---
EXAMINATION: XR CHEST CLINICAL INFORMATION: Acute bronchitis. COMPARISON: Chest radiograph dated from 02/29/2020. TECHNIQUE: 2 views of the chest were obtained. FINDINGS: Normal appearance of the cardiomediastinal silhouette. Mild interstitial thickening. No focal airspace opacity, pleural effusion or pneumothorax. No acute osseous abnormality. XR/XR chest 2V IMPRESSION: Mild interstitial thickening, more notable in the left lower lobe which is nonspecific and could be associated with acute bronchitis, reactive airways disease or atypical infections.
== END 2021-09-05 09:44 | disposition home or self-care (01) ==
LOC: HO.XRAY 09:43
PROVIDERS: Visit Provider Internal Medicine
DX: J20.9 Acute bronchitis, unspecified (principal)
CPT/HCPCS: 71046

== ENCOUNTER 2021-09-09 08:57 | Outpatient (REF) | payer MEDICARE, OTHER, SELFPAY ==
[2021-09-09 09:21] LABS: COVID-19 Test Negative (Negative); IDNOW Serial# 08D9AD1C
== END 2021-09-09 08:58 | disposition home or self-care (01) ==
LOC: HO.LAB 08:57
PROVIDERS: Visit Provider Internal Medicine
DX: Z20.822 Contact with and (suspected) exposure to COVID-19 (principal)
CPT/HCPCS: 87635; C9803

== ENCOUNTER 2021-10-10 16:02 | Outpatient (REF) | payer MEDICARE, OTHER, SELFPAY ==
--- NOTE | ~2021-10-10 | XR_ITS ---
EXAMINATION: XR SINUSES CLINICAL INFORMATION: Chronic sinusitis. COMPARISON: None TECHNIQUE: Watt, Davis, lateral, and SMV FINDINGS: Paranasal sinuses appear clear without air-fluid levels. No fractures are identified. There is a slight leftward nasal septal deviation. No radiodense foreign bodies. XR/XR sinus <3V IMPRESSION: Unremarkable examination.
== END 2021-10-10 16:03 | disposition home or self-care (01) ==
LOC: HO.XRAY 16:02
PROVIDERS: PCP Internal Medicine; Visit Provider Internal Medicine
DX: R05.9 Cough, unspecified (principal); J32.9 Chronic sinusitis, unspecified
CPT/HCPCS: 70210; 99202

== ENCOUNTER 2021-11-07 09:49 | Outpatient (REF) | payer MEDICARE, OTHER, SELFPAY ==
--- NOTE | 2021-11-07 11:33 | PFT_ITS ---
INDICATION: Dyspnea. SPIROMETRY: FEV1 to FVC 77% with an FEV1 of 3.45 L, which is 95% predicted. An FVC of 4.49 L, which is 92% predicted. No significant response to bronchodilators noted. Maximum voluntary ventilation 102% predicted. LUNG VOLUMES: Total lung capacity 92% predicted. DIFFUSION CAPACITY: DLCO 72% predicted. COMPARISONS: None. INTERPRETATION: No obstructive nor restrictive ventilatory defects identified. No significant response to bronchodilators noted. Normal maximum voluntary ventilation. Normal lung volumes except for decrease in the expiratory reserve volume secondary to an elevated BMI. There is a mild diffusion impairment. Clinical correlation warranted. Campos Kilgore MD MR/MODL / [id number]
== END 2021-11-07 09:50 | disposition home or self-care (01) ==
LOC: HO.RESP 09:49
PROVIDERS: PCP Internal Medicine; Visit Provider Internal Medicine
DX: R06.00 Dyspnea, unspecified (principal); R05.9 Cough, unspecified; U07.1 COVID-19
CPT/HCPCS: 94060; 94727; 94729

== ENCOUNTER → 2021-11-18 10:52 | Outpatient (BNVA) | payer MEDICARE, OTHER, SELFPAY | PROVIDERS: PCP Internal Medicine; Visit Provider Internal Medicine | DX: J32.9 Chronic sinusitis, unspecified (principal); R05.9 Cough, unspecified | CPT/HCPCS: 94010; 99212 ==

== ENCOUNTER → 2022-02-10 09:27 | Outpatient (REF) | payer MEDICARE, OTHER, SELFPAY ==
--- NOTE | 2022-02-10 09:29 | CA_ITS ---
Transthoracic Echocardiogram Patient (Last, First, Middle): Earnest Cerna A Gender: Male Date of : 1950 Age: 71 Procedure Date: 02/10/2022 Procedure Type: Transthoracic Echocardiogram Location: OP Height: 185.42 cm Weight: 106.6 kg BSA: 2.30 m2 Heart Rate: 59 bpm BP: 130 / 70 mmHg Grocery Clerk Stocking: MERRITT Referring MD: Paulo Hogan MD Reel System Operator: Paulo Hogan MD Symptoms: I42.9 - Cardiomyopathy, unspecified Study Quality: Fair/Contrast ECG Rhythm: Bradycardia Conclusions: - Normal LV systolic function with LVEF of 55-60% Findings Procedure Information Contrast agent, definity, is being given per protocol without apparent complications. Left Ventricle Normal left ventricular size, thickness, and systolic function. The visually estimated ejection fraction is between 55-60%. Prior Study Comparison No significant change compared to prior study dated: 05/28/2021. Measurements 2D Linear Measurements IVSd: 0.95 0.6-0.9/0.6-1.0 cm LVIDd: 4.75 3.9-5.3/4.2-5.9 cm LVIDd Index: 2.07 2.4-3.2/2.2-3.1 cm/m2 LVIDs: 2.87 2.0-3.6 cm LVPWd: 0.80 0.7-1.1 cm LA Diam: 3.70 2.7-3.8/3.0-4.0 cm LAIDs Index: 1.61 1.5-2.3 cm/m2 LV Mass: 174.55 67-162/88-224 g LV Mass Index: 75.89 43-95/49-115 g/m2 LVOT Diam: 2.10 3.0+(-)1.3 cm 2D Systolic Function EF 4C: 60.90 >55% EF 2C: 56.70 >55% EF BiP: 57.50 >55% Aortic Valve AoV Pk Austin: 1.00 AoV Mn Austin: 0.72 AoV VTI: 0.24 AoV Pk Grad: 4.00 Aov Mn Grad: 2.00 JAYSON Cont.VTI: 2.73 LVOT LVOT Pk Austin: 0.85 LVOT Mn Austin: 0.59 LVOT VTI: 0.19 LVOT Pk Grad: 3.00 LVOT Mn Grad: 2.00 LVOT Diam: 2.10 LVOT Area: 3.46 Great Vessels Aorta Ao Asc: 3.80 2.1-3.4 cm Updated in Other Vendor System with Status of Final Paulo Hogan MD electronically signed on 02/11/2022 8:55:31 AM with status of Final
== END ==
LOC: HO.CARD 09:27
PROVIDERS: PCP Internal Medicine; Visit Provider Internal Medicine Cardiovascular Disease
DX: I42.9 Cardiomyopathy, unspecified (principal)
CPT/HCPCS: 93308; Q9957

== ENCOUNTER → 2022-02-26 11:17 | Outpatient (BNVA) | payer MEDICARE, OTHER, SELFPAY | PROVIDERS: PCP Internal Medicine; Referring Provider Internal Medicine; Visit Provider Internal Medicine Cardiovascular Disease | DX: I48.92 Unspecified atrial flutter (principal); I42.9 Cardiomyopathy, unspecified | CPT/HCPCS: 93005; 99212 ==

== ENCOUNTER 2022-05-30 11:00 | Outpatient (REF) | payer MEDICARE, OTHER, SELFPAY ==
[2022-05-30 11:07] LABS: MANUAL DIFF FLAG NO
[2022-05-30 11:54] LABS: Appearance Urine Clear; Color Urine Yellow; Glucose Urine UA Negative (Negative); Leukocyte Esterase Urine Negative (Negative); Nitrite Urine Negative (Negative); PH 5.5 (5.0-9.0); Urine Blood Negative (Negative); Urine Ketones Negative (Negative); Urine Protein Negative (Neg-Trace)
[2022-05-30 11:59] LABS: Bacteria Urine None Seen (None Seen); Basophils Absolute Auto 0.1 X10*3/uL (0.0-0.2); Basophils Percent Auto 0.7 % (0-2); Eosinophils Absolute Auto 0.2 X10*3/uL (0.0-0.4); Eosinophils Percent Auto 2.8 % (0-4); Hematocrit 42.2 % (42.0-52.0); Hemoglobin 14.2 g/dl (14.0-18.0); Hyaline Casts Urine 0-2 /LPF (0-2); Imm Gran Abs Auto 0.02 X10*3/uL (0.00-0.03); Imm Gran Pct Auto 0.3 % (0.0-0.4); Lymphocytes Absolute Auto 2.8 X10*3/uL (1.2-4.9); Lymphocytes Percent Auto 40.1 % (20-40); Mean Corpuscular HGB Conc 33.6 g/dl (31.0-36.0); Mean Corpuscular Hemoglobin 32.2 pg (27.0-33.0); Mean Corpuscular Volume 95.7 fL (80.0-98.0); Mean Platelet Volume 10.8 fL (9.4-12.4); Monocytes Absolute Auto 0.6 X10*3/uL (0.1-1.2); Neutrophils Absolute Auto 3.3 x10*3/uL (2.0-8.3); Neutrophils Percent Auto 47.1 % (45-73); Platelet Count 162 X10*3/uL (160-400); RBC Urine 0-2 /HPF (0-2); Red Blood Count 4.41 X10*6/uL (4.60-5.80); Red Cell Distribution Width 12.8 % (11.0-16.0); Squamous Epithelial Cell Urine 0-2 /HPF (0-2); WBC Urine 0-5 /HPF (0-5); White Blood Count 7.1 X10*3/uL (4.8-10.8)
[2022-05-30 12:38] LABS: Alanine Aminotransferase 11 U/L (0-40); Albumin Level 4.4 g/dL (3.5-5.0); Alkaline Phosphatase 68 U/L (39-117); Anion Gap 11 (12-20); Aspartate Amino Transferase 20 U/L (5-37); Bilirubin Total 0.6 mg/dL (0.0-1.0); Blood Urea Nitrogen 22 mg/dL (9-16); Calcium 8.9 mg/dL (8.4-10.2); Carbon Dioxide 26 mmol/L (22-29); Chloride 107 mmol/L (96-108); Cholesterol 230 mg/dL; Estimated Glomerular Filt Rate > 60; Glucose Fasting 101 mg/dL (60-99); HDL Cholesterol 29 mg/dL; LDL Cholesterol Calculated 178 mg/dl; Potassium 4.1 mmol/L (3.3-5.1); Sodium 140 mmol/L (135-145); Total Protein 6.8 g/dL (6.5-8.0); Triglycerides 118 mg/dL
[2022-05-30 12:53] LABS: PSA,Total (Free>4and<10) 0.79 ng/mL (0.00-4.00)
== END 2022-05-30 11:01 | disposition home or self-care (01) ==
LOC: HO.LNP 11:00
PROVIDERS: Visit Provider Internal Medicine
DX: Z12.5 Encounter for screening for malignant neoplasm of prostate (principal); I10 Essential (primary) hypertension
CPT/HCPCS: 80053; 80061; 81001; 84153; 85025

== ENCOUNTER → 2022-08-13 08:46 | Outpatient (BNVA) | payer MEDICARE, OTHER, SELFPAY | PROVIDERS: PCP Internal Medicine; Referring Provider Internal Medicine; Visit Provider Internal Medicine Cardiovascular Disease | DX: R00.1 Bradycardia, unspecified (principal) | CPT/HCPCS: 93005 ==

== ENCOUNTER 2022-10-30 15:42 | Outpatient (AMB) | payer MEDICARE, OTHER, SELFPAY ==
--- NOTE | 2022-10-30 15:44 | MHC.OFFVIS ---
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 Allergies No Known Allergies [No Known Allergies*] Allergy (Verified 10/30/22 16:20) Medication List - Last Reconciled 10/30/22 by Heather Gallego MD albuterol sulfate 90 mcg/actuation 2 puffs inhalation Q4-6H PRN apixaban (Eliquis) 5 mg PO BID 90 days cholecalciferol (vitamin D3) 25 mcg PO DAILY diltiazem HCl 120 mg PO DAILY 90 days flaxseed oil 1,000 mg PO DAILY flecainide 150 mg PO Q12H 90 days hydrocortisone 2.5% (Proctozone-HC) 1 appl MT BEDTIME lisinopril 5 mg See Protocol PO DAILY 30 days multivitamin 1 tab PO DAILY omega 8-efe-fvh-fish oil 1,000 mg (120 mg-180 mg) (Fish Oil) 1 cap PO DAILY Do you need a note to return to daycare/school/sports/work: No HPI Somnolence HPI Details THIS 72 YEARS OLD VERY PLEASANT GENTLEMAN IS HERE TODAY, TO BE EVALUATED FOR SLEEP APNEA. HE IS MODERATELY OBESE, WAS TREATED LAST YEAR FOR A BOUT OF ACUTE BRONCHITIS, SINCE THEN HE HAS HAD NO RECURRENCE OF WHEEZING OR COUGH. HE HAS THE ATRIAL FIBRILLATION CONTROLLED WITH. MEDS AND REMAINS ON ANTICOAGULATION. HIS IS CONCERNED BECAUSE SHE HAS NOTICED HIM TO HAVE RESPIRATORY PAUSES AT NIGHT, ALONG WITH SOME 6 SNORING. HE WAKES UP SOMETIMES WITH GASPING LIKE FEELING. DURING THE DAYTIME HE DOES TEND TO FALL ASLEEP IF HE IS SITTING AND RESTING, ESPECIALLY IN THE AFTERNOON. EPWORTH SLEEPINESS SCALE 9/24. BECAUSE OF HIS CARDIAC COMORBIDITY IT IS IMPORTANT TO EVALUATE HIM FOR POSSIBLE SLEEP APNEA. [facility] Medical History (Updated 10/30/22 @ 16:31 by Heather Gallego MD) Atrial fibrillation Atrial flutter with rapid ventricular response Bronchial asthma Cough HTN (hypertension) Hypercholesteremia GODWIN (obstructive sleep apnea) Paroxysmal atrial flutter Sinusitis Somnolence, daytime Surgical History Hx of elbow surgery Family History Father No problems noted. Mother Diabetes Social History Household Members: Spouse and Family Housing: House Alcohol intake: former Patient Tobacco Use Status: Former Tobacco user service: Yes Current occupational status: retired Review of Systems Const All systems reviewed & are unremarkable except as noted in HPI and below Eyes Reports no additional complaints ENT Reports nasal congestion (MILD OFF AND ON) and Reports nasal discharge (MILD OFF AND ON) Card Denies chest pain, Reports irregular heart rhythm (History of paroxysmal atrial fibrillation, currently controlled.) and Denies leg edema Resp Reports as per HPI and Reports cough GI Reports no additional complaints Reports no additional complaints Musc Reports no additional complaints Skin/Breast Reports system reviewed and no additional complaints, except as documented Neuro Reports no additional complaints Physical Exam Vital Signs: Last Vital Signs Pulse 58 10/30/22 15:45 BP 134/76 10/30/22 15:45 Pulse Ox 96 10/30/22 15:45 Oxygen Delivery Method Room Air 10/30/22 15:45 BMI result Body Mass Index 30.4 Const General: comfortable, no acute distress, alert and awake Orientation/consciousness: patient oriented x3 HEENT Head: Yes normal to inspection General nose exam: No nasal polyps present and No nasal discharge present Face and sinus: Yes sinuses nontender Mouth: oropharynx abnormals (MODERATELY CROWDED, MALLAMPATI CLASS 3) Teeth and gingiva: other (HE DOES HAVE MILD RETROGANTHIA OF THE LOWER JAW.) Eyes General: appearance normal, both eyes and all related structures Neck Neck: Yes normal visual inspection, Yes no lymphadenopathy, Yes trachea midline and Yes no JVD Thyroid: Thyroid normal Chest Chest palpation & inspection: normal inspection of the chest, normal palpation of entire chest wall and no tenderness Resp Other: Percussion note is resonant,, breath sounds are equal on both sides. Lungs are clear to auscultation. Cardio Palpation: normal PMI Rate: regular rate Rhythm: regular rhythm Heart sounds: no gallops and no murmurs Peripheral pulses: Peripheral pulses 2+ throughout GI Palpation (GI): Soft to palpation, nontender, No hepatosplenomegaly present and no masses Auscultation: normal bowel sounds Back/Spine/Pelvis Thoracic/Lumbar Spine: thoracic and lumbar spine normal to inspection Skin General skin exam: no rashes or lesions noted Neuro General: patient oriented x3 and no focal motor deficits Cranial nerves: Yes CN's II-XII intact bilaterally Extrem General: Yes normal to inspection, Yes no clubbing, cyanosis or edema and Yes no calf tenderness Psych Speech and movement: Normal speech and movement present Results Reviewed Results Reviewed: SPIROMETRY AND PULMONARY FUNCTION TEST ON 11/18/2021 WERE NORMAL EXCEPT FOR POSSIBILITY OF MILD BRONCHIAL ASTHMA. Assessment & Plan Assessment & Plan (1) Atrial fibrillation: Comment: CHRONIC, CONTROLLED WITH. MEDS, PATIENT ON ANTICOAGULATION PATIENT FOLLOWED BY CARDIOLOGY REGULARLY. Code(s): I48.91 - Unspecified atrial fibrillation (2) Bronchial asthma: Comment: PAST HISTORY OF SMOKING, PATIENT MAY HAVE A MILD INTERMITTENT BRONCHIAL ASTHMA. ALBUTEROL MDI 2 PUFFS Q 4-6 HOURS P.R.N., IF ANY BOUTS OF COUGH OR WHEEZING. Code(s): J45.909 - Unspecified asthma, uncomplicated (3) Somnolence, daytime: Comment: DOES HAVE SOME SLEEPINESS DURING THE DAYTIME. ESS=11 Code(s): R40.0 - Somnolence (4) GODWIN (obstructive sleep apnea): Comment: WITNESSED APNEAS AT NIGHT, SNORING. HIS DAYTIME SOMNOLENCE. ALL THESE SYMPTOMS SUGGEST OBSTRUCTIVE SLEEP APNEA. CONTRIBUTING FACTOR, MILDRETROGANTHIA OF THE LOWER JAW, AND MODERATE OBESITY. PATIENT HAS CARDIAC COMORBIDITY, AND HENCE IT IS IMPORTANT TO SCREEN HIM FOR OBSTRUCTIVE SLEEP APNEA. I WILL ORDER A HOME-BASED SLEEP STUDY, AND THEN DECIDE IF HE NEEDS ACTIVE TREATMENT. Code(s): G47.33 - Obstructive sleep apnea (adult) (pediatric) Orders: Orders RT home sleep study Today G47.33 - Obstructive sleep apnea (adult) (pediatric), I48.91 - Unspecified atrial fibrillation, R40.0 - Somnolence Coding Level of Care Code Est Pt Level 3 (66377) Diagnoses Atrial fibrillation I48.91 Bronchial asthma J45.909 Somnolence, daytime R40.0 GODWIN (obstructive sleep apnea) G47.33
[2022-10-30 15:45] VITALS: BP 134/76; PULSE 58; O2SAT 96; BMI 30.4
== END 2022-10-30 16:04 | disposition home or self-care (01) ==
PROVIDERS: PCP Internal Medicine; Visit Provider Internal Medicine
DX: I48.91 Unspecified atrial fibrillation (principal); J45.909 Unspecified asthma, uncomplicated; R40.0 Somnolence; G47.33 Obstructive sleep apnea (adult) (pediatric)
CPT/HCPCS: 99213

== ENCOUNTER → 2022-10-30 15:42 | Outpatient (BNVA) | payer MEDICARE, OTHER, SELFPAY | PROVIDERS: PCP Internal Medicine; Visit Provider Internal Medicine | DX: J45.909 Unspecified asthma, uncomplicated (principal); G47.33 Obstructive sleep apnea (adult) (pediatric); I48.91 Unspecified atrial fibrillation; R40.0 Somnolence | CPT/HCPCS: 99212 ==

== ENCOUNTER 2022-12-11 13:46 | Outpatient (REF) | payer MEDICARE, OTHER, SELFPAY ==
[2022-12-11 14:22] LABS: Cholesterol 219 mg/dL (<200); HDL Cholesterol 33 mg/dL (>40); LDL Cholesterol Calculated 157 mg/dL (<100); Triglycerides 145 mg/dL (<150)
== END 2022-12-11 13:47 | disposition home or self-care (01) ==
LOC: HO.LNP 13:46
PROVIDERS: Visit Provider Internal Medicine
DX: E78.00 Pure hypercholesterolemia, unspecified (principal)
CPT/HCPCS: 80061

== ENCOUNTER → 2023-01-14 08:48 | Outpatient (REF) | payer MEDICARE, OTHER, SELFPAY | LOC: HO.SL 08:48 | PROVIDERS: PCP Internal Medicine; Visit Provider Internal Medicine | DX: G47.33 Obstructive sleep apnea (adult) (pediatric) (principal); R40.0 Somnolence; I48.91 Unspecified atrial fibrillation | CPT/HCPCS: 95806 ==

== ENCOUNTER → 2023-01-14 09:31 | Outpatient (BNV) | payer MEDICARE, OTHER, SELFPAY | PROVIDERS: PCP Internal Medicine; Visit Provider Internal Medicine | DX: G47.33 Obstructive sleep apnea (adult) (pediatric) (principal) | CPT/HCPCS: 95806 ==

== ENCOUNTER 2023-01-27 09:20 | Outpatient (AMB) | payer MEDICARE, OTHER, SELFPAY ==
[2023-01-27 09:28] VITALS: BP 140/68; PULSE 59; O2SAT 98; BMI 30.7
--- NOTE | 2023-01-27 09:28 | MHC.OFFVIS ---
Intake Vital Signs 01/27/23 09:28 Height 6 ft 1 in Weight 233 lb BMI 30.7 BP 140/68 H Blood Pressure Location Lt brachial Position Sitting Pulse 59 Pulse Source Pulse Oximeter Pulse Oximetry (%) 98 Oxygen Delivery Method Room Air Intake Visit Reasons: Somnolence/Sleep Study Follow Up Intake Note: pt is here for follow up of sleep study. He states he feels good. 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 Required: No Allergies No Known Allergies [No Known Allergies*] Allergy (Verified 01/27/23 09:32) Medication List - Last Reconciled 01/27/23 by Heather Gallego MD apixaban (Eliquis) 5 mg PO BID 90 days cholecalciferol (vitamin D3) 25 mcg PO DAILY diltiazem HCl 120 mg PO DAILY 90 days flaxseed oil 1,000 mg PO DAILY flecainide 150 mg PO Q12H 90 days hydrocortisone 2.5% (Proctozone-HC) 1 appl ME BEDTIME lisinopril 5 mg See Protocol PO DAILY 30 days multivitamin 1 tab PO DAILY omega 1-swv-kky-fish oil 1,000 mg (120 mg-180 mg) (Fish Oil) 1 cap PO DAILY Do you need a note to return to daycare/school/sports/work: No HPI Somnolence/Sleep Study Follow Up HPI Details 72 YEARS OLD GENTLEMAN, ONLY MODERATELY OBESE, HAS PAROXYSMAL ATRIAL FIBRILLATION, CONTROLLED WITH MEDS. HE HAD HOME-BASED SLEEP STUDY , AND IS HERE FOR FOLLOW-UP. HE CLAIMS THAT HE IS SLEEPING OKAY WITHOUT WAKING UP FREQUENTLY. HE DENIES ANY DAYTIME SLEEPINESS. HE TRIES TO SLEEP IN RIGHT LATERAL POSITION ALL THE TIMES. BREATHING HAS BEEN GOOD HE HAS HAD NO EPISODES OF COUGH OR WHEEZING AND HAS NOT USE THE ALBUTEROL INHALER. [facility] [place] Medical History GODWIN (obstructive sleep apnea) Somnolence, daytime Bronchial asthma Sinusitis Cough Paroxysmal atrial flutter Atrial flutter with rapid ventricular response Hypercholesteremia HTN (hypertension) Atrial fibrillation Surgical History Hx of elbow surgery Family History Father No problems noted. Mother Diabetes Social History Household Members: Spouse and Family Housing: House Alcohol intake: former Patient Tobacco Use Status: Former Tobacco user service: Yes Current occupational status: retired Review of Systems Const All systems reviewed & are unremarkable except as noted in HPI and below Eyes Reports no additional complaints ENT Reports nasal congestion (MILD OFF AND ON) and Reports nasal discharge (MILD OFF AND ON) Card Denies chest pain, Reports irregular heart rhythm (History of paroxysmal atrial fibrillation, currently controlled.) and Denies leg edema Resp Reports as per HPI and Reports cough GI Reports no additional complaints Reports no additional complaints Musc Reports no additional complaints Skin/Breast Reports system reviewed and no additional complaints, except as documented Neuro Reports no additional complaints Physical Exam Vital Signs: Last Vital Signs Pulse 59 01/27/23 09:28 BP 140/68 H 01/27/23 09:28 Pulse Ox 98 01/27/23 09:28 Oxygen Delivery Method Room Air 01/27/23 09:28 BMI result Body Mass Index 30.7 Const General: comfortable, no acute distress, alert and awake Orientation/consciousness: patient oriented x3 HEENT Head: Yes normal to inspection General nose exam: No nasal polyps present and No nasal discharge present Face and sinus: Yes sinuses nontender Mouth: oropharynx abnormals (MODERATELY CROWDED, MALLAMPATI CLASS 3) Teeth and gingiva: other (HE DOES HAVE MILD RETROGANTHIA OF THE LOWER JAW.) Eyes General: appearance normal, both eyes and all related structures Neck Neck: Yes normal visual inspection, Yes no lymphadenopathy, Yes trachea midline and Yes no JVD Thyroid: Thyroid normal Chest Chest palpation & inspection: normal inspection of the chest, normal palpation of entire chest wall and no tenderness Resp Other: Percussion note is resonant,, breath sounds are equal on both sides. Lungs are clear to auscultation. Cardio Palpation: normal PMI Rate: regular rate Rhythm: regular rhythm Heart sounds: no gallops and no murmurs Peripheral pulses: Peripheral pulses 2+ throughout GI Palpation (GI): Soft to palpation, nontender, No hepatosplenomegaly present and no masses Auscultation: normal bowel sounds Back/Spine/Pelvis Thoracic/Lumbar Spine: thoracic and lumbar spine normal to inspection Skin General skin exam: no rashes or lesions noted Neuro General: patient oriented x3 and no focal motor deficits Cranial nerves: Yes CN's II-XII intact bilaterally Extrem General: Yes normal to inspection, Yes no clubbing, cyanosis or edema and Yes no calf tenderness Psych Speech and movement: Normal speech and movement present Results Reviewed Results Reviewed: SLEEP STUDY ON 01/14/2023 TOTAL SLEEP TIME AHI 18.7, SUPINE POSITION AHI 40 LATERAL POSITION (RT) AHI 2.9 AND LT . LATERAL POSITION AHI 11.6 Assessment & Plan Assessment & Plan (1) GODWIN (obstructive sleep apnea): Comment: SLEEP STUDY DOES SHOW MODERATELY SEVERE OBSTRUCTIVE SLEEP APNEA, BUT IT IS PREDOMINANTLY POSITIONAL. ( IN SUPINE POSITION) THIS GENTLEMAN IS NOT OVERLY OBESE, BUT HAS RETROGANTHIA A CONTRIBUTING FACTOR. DISCUSS THE FINDINGS WITH HIM. TREATMENT OPTIONS DISCUSSED, USE OF CPAP WORSE IS CONSERVATIVE MEASURES,. ESPECIALLY POSITION THERAPY I DID TELL HIM THAT IN VIEW OF HIS PAROXYSMAL ATRIAL FIBRILLATION, HE IS BETTER OF USING THE CPAP. HOWEVER HE HAS OPTED TO USE POSITION THERAPY 1ST. DISCUSSED ABOUT HAVING A WEDGE IN THE MIDDLE OF THE BED AND HE WILL GET ONE . WILL RECHECK HIM IN 3 MONTHS, AND THEN PLAN FURTHER . Code(s): G47.33 - Obstructive sleep apnea (adult) (pediatric) (2) Bronchial asthma: Comment: PAST HISTORY OF SMOKING, PATIENT HAS H/O A MILD INTERMITTENT BRONCHIAL ASTHMA. ALBUTEROL MDI 2 PUFFS Q 4-6 HOURS P.R.N., IF ANY BOUTS OF COUGH OR WHEEZING. Code(s): J45.909 - Unspecified asthma, uncomplicated (3) Atrial fibrillation: Comment: CHRONIC, CONTROLLED WITH. MEDS, PATIENT ON ANTICOAGULATION PATIENT FOLLOWED BY CARDIOLOGY REGULARLY. Code(s): I48.91 - Unspecified atrial fibrillation Coding Level of Care Code Est Pt Level 3 (47654) Diagnoses GODWIN (obstructive sleep apnea) G47.33 Bronchial asthma J45.909 Atrial fibrillation I48.91
== END 2023-01-27 09:50 | disposition home or self-care (01) ==
PROVIDERS: PCP Internal Medicine; Visit Provider Internal Medicine
DX: G47.33 Obstructive sleep apnea (adult) (pediatric) (principal); J45.909 Unspecified asthma, uncomplicated; I48.91 Unspecified atrial fibrillation
CPT/HCPCS: 99213

== ENCOUNTER → 2023-01-27 09:20 | Outpatient (BNVA) | payer MEDICARE, OTHER, SELFPAY | PROVIDERS: PCP Internal Medicine; Visit Provider Internal Medicine | DX: J45.909 Unspecified asthma, uncomplicated (principal); G47.33 Obstructive sleep apnea (adult) (pediatric); I48.91 Unspecified atrial fibrillation | CPT/HCPCS: 99212 ==

== ENCOUNTER → 2023-01-28 07:54 | Outpatient (REF) | payer MEDICARE, OTHER, SELFPAY ==
--- NOTE | 2023-01-28 07:56 | CA_ITS ---
Transthoracic Echocardiogram Patient (Last, First, Middle): Earnest Cerna A Gender: Male Date of : 1950 Age: 72 Procedure Date: 01/28/2023 Procedure Type: Transthoracic Echocardiogram Location: OP Height: 185.42 cm Weight: 104.33 kg BSA: 2.28 m2 Heart Rate: bpm BP: 128 / 80 mmHg Section 8 Property Manager: Referring MD: Paulo Hogan MD Folder Machine Adjuster: Paulo Hogan MD Symptoms: I48.92 - Unspecified atrial flutter Study Quality: Fair ECG Rhythm: Sinus Conclusions: - 1. Normal LV ejection fraction 55-60% 2. Mild aortic and mitral regurgitation 3. Normal RV systolic pressure 4. Mildly dilated ascending aorta 3.8 cm 5. No gross pericardial effusion Findings Left Ventricle Normal left ventricular size, thickness, and systolic function. The visually estimated ejection fraction is between 55-60%. Spectral Doppler is indicative of a normal filling pattern. Right Ventricle Normal right ventricular cavity size and systolic function. Atria The left atrium is normal in size. There is no evidence of interatrial shunt. The right atrium is normal in size. Aortic Valve Normal aortic valve structure and function. There is no aortic valve stenosis. There is mild aortic valve regurgitation. Mitral Valve Normal mitral valve structure and function. There is mild mitral valve regurgitation. There is no mitral valve stenosis. Pulmonic Valve The pulmonic valve is likely normal. Tricuspid Valve Normal tricuspid valve structure. There is trace tricuspid valve regurgitation. The right ventricular systolic pressure is normal. The right ventricular systolic pressure is 20 mmHg. Normal right atrial pressure. There is no evidence of pulmonary hypertension. Great Vessels The pulmonary artery was not well visualized. There is mild dilatation of the ascending aorta measuring 3.80 cm. Venous The inferior vena cava is normal in size and collapses greater than 50% with inspiration. Pericardium/Pleural There is no evidence of pericardial effusion. Measurements 2D Linear Measurements IVSd: 0.99 0.6-0.9/0.6-1.0 cm LVIDd: 4.78 3.9-5.3/4.2-5.9 cm LVIDd Index: 2.10 2.4-3.2/2.2-3.1 cm/m2 LVIDs: 3.09 2.0-3.6 cm LVPWd: 1.00 0.7-1.1 cm Ao Root: 3.50 2.1-3.5 cm LA Diam: 4.20 2.7-3.8/3.0-4.0 cm LAIDs Index: 1.84 1.5-2.3 cm/m2 LV Mass: 208.26 67-162/88-224 g LV Mass Index: 91.34 43-95/49-115 g/m2 LVOT Diam: 2.00 3.0+(-)1.3 cm 2D Systolic Function EF 4C: 54.80 >55% EF 2C: 54.70 >55% EF BiP: 53.30 >55% Mitral Valve MV Pk E: 0.69 MV PK A: 0.49 MV Decel Time: 147.00 E/A: 1.40 E'Lateral: 12.60 E'Medial: 8.59 E/E' Med: 8.10 E/E' Lat: 5.50 PHT: 43.00 MVA PHT: 5.12 Decel [place]: 4.72 Aortic Valve AoV Pk Austin: 1.17 AoV Mn Austin: 0.79 AoV VTI: 0.31 AoV Pk Grad: 5.00 Aov Mn Grad: 3.00 JAYSON Cont.VTI: 1.92 LVOT LVOT Pk Austin: 0.76 LVOT Mn Austin: 0.50 LVOT VTI: 0.19 LVOT Pk Grad: 2.00 LVOT Mn Grad: 1.00 LVOT Diam: 2.00 LVOT Area: 3.14 Diastolic Function MV Pk E: 0.69 MV Pk A: 0.49 E/A: 1.40 E'Medial: 8.59 E/E' Med: 8.10 E' Laterial: 12.60 E/E' Lat: 5.50 Right Ventricle TAPSE (mm): 26.00 TVS' Austin: 11.00 Tricuspid Valve TR Pk Austin: 2.05 TR Pk Grad: 17.00 RA Press: 3.00 RVSP: 20.00 Great Vessels Aorta Ao Root-2D: 3.50 2.0-3.7 cm Ao Asc: 3.80 2.1-3.4 cm Pulmonary Valve PV Pk Austin: 0.97 Peak PV Grad: 4.00 Updated in Other Vendor System with Status of Final Paulo Hogan MD electronically signed on 01/28/2023 10:35:33 AM with status of Final
== END ==
LOC: HO.CARD 07:54
PROVIDERS: PCP Internal Medicine; Visit Provider Internal Medicine Cardiovascular Disease
DX: I48.92 Unspecified atrial flutter (principal)
CPT/HCPCS: 93306

== ENCOUNTER → 2023-01-28 07:56 | Outpatient (BNV) | payer MEDICARE, OTHER, SELFPAY | PROVIDERS: PCP Internal Medicine; Visit Provider Internal Medicine Cardiovascular Disease | DX: I35.1 Nonrheumatic aortic (valve) insufficiency (principal); I34.0 Nonrheumatic mitral (valve) insufficiency | CPT/HCPCS: 93306 ==

== ENCOUNTER 2023-03-02 08:05 | Outpatient (AMB) | payer MEDICARE, OTHER, SELFPAY ==
[2023-03-02 08:16] VITALS: BP 134/72; PULSE 58; BMI 30.4
--- NOTE | 2023-03-02 08:16 | MHC.OFFVIS ---
Intake Vital Signs 03/02/23 08:16 Height 6 ft 1 in Weight 230 lb 2.601 oz BMI 30.4 BP 134/72 Blood Pressure Location Lt brachial Position Sitting Pulse 58 Intake Visit Reasons: 1 yr fu (NS) Allergies No Known Allergies [No Known Allergies*] Allergy (Verified 03/02/23 08:19) Medication List - Last Reconciled 03/02/23 by Lorenza Gonzales, IRAJ-C apixaban (Eliquis) 5 mg PO BID 90 days cholecalciferol (vitamin D3) 25 mcg PO DAILY diltiazem HCl 120 mg PO DAILY 90 days flaxseed oil 1,000 mg PO DAILY flecainide 150 mg PO Q12H 90 days lisinopril 5 mg See Protocol PO DAILY 30 days multivitamin 1 tab PO DAILY omega 2-cji-mor-fish oil 1,000 mg (120 mg-180 mg) (Fish Oil) 1 cap PO DAILY HPI 1 yr fu (NS) HPI Details Earnest is a 72-year-old male with past medical history of hypertension, hyperlipidemia, sleep apnea, cardiomyopathy with tachyarrhythmia, paroxysmal AFib who presents for follow-up after recent echocardiogram. Today he reports he has been doing well since his last visit. He has not had any recent heart palpitations. No chest discomfort at rest or with activity. No shortness of breath, PND, orthopnea or edema. No presyncope, syncope, falls. Has been trying to sleep more on his side. Does not want to wear a CPAP mask if he can avoid it. Taking all meds as directed. No bleeding issues. [facility] Medical History GODWIN (obstructive sleep apnea) Somnolence, daytime Bronchial asthma Sinusitis Cough Paroxysmal atrial flutter Atrial flutter with rapid ventricular response Hypercholesteremia HTN (hypertension) Atrial fibrillation Surgical History Hx of elbow surgery Family History Father No problems noted. Mother Diabetes Social History Household Members: Spouse and Family Housing: House Alcohol intake: former Patient Tobacco Use Status: Former Tobacco user service: Yes Current occupational status: retired Review of Systems Const All systems reviewed & are unremarkable except as noted in HPI and below ENT Denies dizziness Card Denies chest pain, Denies chest pain at rest, Denies chest pain with activity, Denies rapid heart rate, Denies pedal edema, Denies edema, Denies leg edema, Denies lightheadedness, Denies palpitations, Denies dyspnea, Denies dyspnea on exertion and Denies orthopnea Resp Denies cough, Denies dyspnea and Denies dyspnea on exertion GI Denies hematochezia and Denies change in stool character Musc Denies abnormal gait, Denies limited range of motion, Denies muscle cramps, Denies muscle weakness, Denies numbness, Denies radiating pain into limb, Denies stiffness and Denies tingling Neuro Denies abnormal gait, Denies dizziness, Denies numbness and Denies tingling Endo Denies palpitations Physical Exam Vital Signs: Last Vital Signs Pulse 58 03/02/23 08:16 BP 134/72 03/02/23 08:16 BMI result Body Mass Index 30.4 Const General: cooperative, healthy appearing, comfortable and no acute distress Orientation/consciousness: patient oriented x3 Neck Neck: Yes normal visual inspection Resp Effort & Inspection: normal respiratory effort Auscultation: clear to auscultation bilaterally, no crackles, no rales, no rhonchi and no wheezes Cardio Jugular venous distension: no JVD Rate: regular rate Rhythm: regular rhythm Heart sounds: S1 normal heart sound present, S2 normal heart sound present, no murmurs and no rubs Neuro General: patient oriented x3 Extrem General: Yes normal to inspection Psych Appearance: grossly normal Mental Status: mental status grossly normal Speech and movement: Normal speech and movement present Office Procedures EKG Details: Today, read by me, sinus Stiven with first-degree AV block, WA interval 210 milliseconds, QTC 429 milliseconds, no significant change from prior, rate 58 [id number], Complete Assessment & Plan Assessment & Plan (1) Atrial fibrillation: Comment: CHRONIC, CONTROLLED WITH. MEDS, PATIENT ON ANTICOAGULATION PATIENT FOLLOWED BY CARDIOLOGY REGULARLY. Code(s): I48.91 - Unspecified atrial fibrillation Plan: History of paroxysmal AFib. Currently being treated with rhythm control. On flecainide for antiarrhythmic therapy. On diltiazem for heart rate control. Doing well without any known recurrent atrial fibrillation. Does not notice any heart palpitations. EKG done today showing sinus bradycardia with mild first-degree AV block, rate 58. On Eliquis for anticoagulation. No bleeding issues reported. Chads Vasc score 2-3. Labs done 05/30/2022 showed creatinine 1.12. Should have biannual kidney testing. Continue current treatment (2) HTN (hypertension): Code(s): I10 - Essential (primary) hypertension Plan: Well controlled at this time. No medication changes are made (3) Cardiomyopathy: Code(s): I42.9 - Cardiomyopathy, unspecified Plan: Cardiomyopathy in the past with AFib RVR. Most recent echo 01/28/2023 showing EF 55-60%, mild AR, mild MR, ascending aorta 3.8 cm. (4) GODWIN (obstructive sleep apnea): Comment: SLEEP STUDY DOES SHOW MODERATELY SEVERE OBSTRUCTIVE SLEEP APNEA, BUT IT IS PREDOMINANTLY POSITIONAL. ( IN SUPINE POSITION) Code(s): G47.33 - Obstructive sleep apnea (adult) (pediatric) Plan: Currently not using CPAP. He is working on side sleeping. If he is unable to effectively control sleep apnea with this method he will pursue CPAP mask. Plan Time spent with chart review, documentation, interview, assessment Coding Level of Care Code Est Pt Level 4 (64178) Diagnoses Atrial fibrillation I48.91 HTN (hypertension) I10 Cardiomyopathy I42.9 GODWIN (obstructive sleep apnea) G47.33 CPT Codes EKG - CPT: 07003-[id number], Complete ([id number]) Time Spent (min) 26
== END 2023-03-02 08:39 | disposition home or self-care (01) ==
PROVIDERS: PCP Internal Medicine; Visit Provider Nurse Practitioner Family
DX: I48.91 Unspecified atrial fibrillation (principal); I10 Essential (primary) hypertension; I42.9 Cardiomyopathy, unspecified; G47.33 Obstructive sleep apnea (adult) (pediatric)
CPT/HCPCS: 93010; 99214

== ENCOUNTER → 2023-03-02 08:05 | Outpatient (BNVA) | payer MEDICARE, OTHER, SELFPAY | PROVIDERS: PCP Internal Medicine; Visit Provider Nurse Practitioner Family | DX: I48.91 Unspecified atrial fibrillation (principal); I42.9 Cardiomyopathy, unspecified; I10 Essential (primary) hypertension; G47.33 Obstructive sleep apnea (adult) (pediatric) | CPT/HCPCS: 93005; 99212 ==

== ENCOUNTER 2023-05-07 09:15 | Outpatient (AMB) | payer MEDICARE, OTHER, SELFPAY ==
--- NOTE | 2023-05-07 09:43 | A.OFFVIS_ITS ---
Intake Vital Signs 05/07/23 09:44 Height 6 ft 1 in Weight 233 lb 11.04 oz BMI 30.8 BP 110/70 Blood Pressure Location Lt brachial Position Sitting Pulse 55 Pulse Source Pulse Oximeter Pulse Oximetry (%) 98 Oxygen Delivery Method Room Air Intake Visit Reasons: Somnolence/Sleep Study Follow Up Intake Note: pt is here for follow up and doing great, and sleeping well. 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: No Allergies No Known Allergies [No Known Allergies*] Allergy (Verified 05/07/23 10:03) Medication List - Last Reconciled 05/07/23 by Heather Gallego MD apixaban (Eliquis) 5 mg PO BID 90 days cholecalciferol (vitamin D3) 25 mcg PO DAILY diltiazem HCl 120 mg PO DAILY 90 days flaxseed oil 1,000 mg PO DAILY flecainide 150 mg PO Q12H 90 days lisinopril 5 mg See Protocol PO DAILY 30 days multivitamin 1 tab PO DAILY omega 3-gdu-ywg-fish oil 1,000 mg (120 mg-180 mg) (Fish Oil) 1 cap PO DAILY Do you need a note to return to daycare/school/sports/work: No HPI Somnolence/Sleep Study Follow Up HPI Details THIS 73 YEARS OLD GENTLEMAN IS HERE FOR FOLLOW-UP, . FOR HIS SLEEP APNEA HE WAS FOUND TO HAVE POSITIONAL OBSTRUCTIVE SLEEP APNEA WITH SNORING. HE OPTED TO TREATED WITH CONSERVATIVE MEASURES MAINLY WITH POSITION THERAPY. HE PRESENTS, WITH THIS SUCCESS STORY , HE BUT A WEDGE PILLOW WHICH HE HAS BEEN USING AND ALWAYS STAYS ON HIS RIGHT SIDE DURING SLEEP. HIS SLEEP IS EXCELLENT THROUGHOUT THE NIGHT, AND HIS HAS NOT COMPLAINED OF HIS SNORING . HIS SLEEP APNEA IS CONTRIBUTED BY RETROGANTHIA OF THE LOWER JAW, AND WEIGHT IS NOT A BIG FACTOR. HE HAS ALSO NOT HAD ANY EPISODE OF WHEEZING. HE HAS ALSO NOT HAD ANY RECURRENCE OF ATRIAL FIBRILLATION. [facility] Medical History GODWIN (obstructive sleep apnea) Somnolence, daytime Bronchial asthma Sinusitis Cough Paroxysmal atrial flutter Atrial flutter with rapid ventricular response Hypercholesteremia HTN (hypertension) Atrial fibrillation Surgical History Hx of elbow surgery Family History Father No problems noted. Mother Diabetes Social History Household Members: Spouse and Family Housing: House Alcohol intake: former Patient Tobacco Use Status: Former Tobacco user service: Yes Current occupational status: retired Review of Systems Const All systems reviewed & are unremarkable except as noted in HPI and below Eyes Reports no additional complaints ENT Reports nasal congestion (MILD OFF AND ON) and Reports nasal discharge (MILD OFF AND ON) Card Denies chest pain, Reports irregular heart rhythm (History of paroxysmal atrial fibrillation, currently controlled.) and Denies leg edema Resp Reports as per HPI and Reports cough GI Reports no additional complaints Reports no additional complaints Musc Reports no additional complaints Skin/Breast Reports system reviewed and no additional complaints, except as documented Neuro Reports no additional complaints Physical Exam Vital Signs: Last Vital Signs Pulse 55 05/07/23 09:44 BP 110/70 05/07/23 09:44 Pulse Ox 98 05/07/23 09:44 Oxygen Delivery Method Room Air 05/07/23 09:44 BMI result Body Mass Index 30.8 Const General: comfortable, no acute distress, alert and awake Orientation/consciousness: patient oriented x3 HEENT Head: Yes normal to inspection General nose exam: No nasal polyps present and No nasal discharge present Face and sinus: Yes sinuses nontender Mouth: oropharynx abnormals (MODERATELY CROWDED, MALLAMPATI CLASS 3) Teeth and gingiva: other (HE DOES HAVE MILD RETROGANTHIA OF THE LOWER JAW.) Eyes General: appearance normal, both eyes and all related structures Neck Neck: Yes normal visual inspection, Yes no lymphadenopathy, Yes trachea midline and Yes no JVD Thyroid: Thyroid normal Chest Chest palpation & inspection: normal inspection of the chest, normal palpation of entire chest wall and no tenderness Resp Other: Percussion note is resonant,, breath sounds are equal on both sides. Lungs are clear to auscultation. Cardio Palpation: normal PMI Rate: regular rate Rhythm: regular rhythm Heart sounds: no gallops and no murmurs Peripheral pulses: Peripheral pulses 2+ throughout GI Palpation (GI): Soft to palpation, nontender, No hepatosplenomegaly present and no masses Auscultation: normal bowel sounds Back/Spine/Pelvis Thoracic/Lumbar Spine: thoracic and lumbar spine normal to inspection Skin General skin exam: no rashes or lesions noted Neuro General: patient oriented x3 and no focal motor deficits Cranial nerves: Yes CN's II-XII intact bilaterally Extrem General: Yes normal to inspection, Yes no clubbing, cyanosis or edema and Yes no calf tenderness Psych Speech and movement: Normal speech and movement present Assessment & Plan Assessment & Plan (1) GODWIN (obstructive sleep apnea): Comment: SLEEP STUDY DOES SHOW MODERATELY SEVERE OBSTRUCTIVE SLEEP APNEA, BUT PREDOMINANTLY POSITIONAL. ( IN SUPINE POSITION) Code(s): G47.33 - Obstructive sleep apnea (adult) (pediatric) Plan: PATIENT WAS ADVISED TO SLEEP IN LATERAL POSITION. HE WAS ABLE TO BUY A NICE WEDGE PILLOW WHICH HE USES EVERY NIGHT. HE SLEEPS IN LATERAL POSITION AND DENIES HAVING ANY PROBLEM WITH HIS SLEEP. PER HIS HE DOES NOT SNORE ANYMORE. HE IS ADVISED TO CONTINUE THE SAME ARRANGEMENT, HE CAN COME TO SEE ME ONCE A YEAR AND NEEDED. (2) Bronchial asthma: Comment: PAST HISTORY OF SMOKING, PATIENT HAS H/O A MILD INTERMITTENT BRONCHIAL ASTHMA. IT IS REMAINING UNDER CONTROL AND IN ACTIVE, PATIENT HAS NOT NEEDED TO USE ALBUTEROL. Code(s): J45.909 - Unspecified asthma, uncomplicated Plan: TX: ALBUTEROL MDI 2 PUFFS Q 4-6 HOURS P.R.N., IF ANY BOUTS OF COUGH OR WHEEZING. Coding Level of Care Code Est Pt Level 3 (75477) Diagnoses GODWIN (obstructive sleep apnea) G47.33 Bronchial asthma J45.909
[2023-05-07 09:44] VITALS: BP 110/70; PULSE 55; O2SAT 98; BMI 30.8
== END 2023-05-07 10:26 | disposition home or self-care (01) ==
PROVIDERS: PCP Internal Medicine; Visit Provider Internal Medicine
DX: G47.33 Obstructive sleep apnea (adult) (pediatric) (principal); J45.909 Unspecified asthma, uncomplicated
CPT/HCPCS: 99213

== ENCOUNTER → 2023-05-07 09:15 | Outpatient (BNVA) | payer MEDICARE, OTHER, SELFPAY | PROVIDERS: PCP Internal Medicine; Visit Provider Internal Medicine | DX: J45.909 Unspecified asthma, uncomplicated (principal); G47.33 Obstructive sleep apnea (adult) (pediatric) | CPT/HCPCS: 99212 ==

== ENCOUNTER 2023-06-04 11:20 | Outpatient (REF) | payer MEDICARE, OTHER, SELFPAY ==
[2023-06-04 11:23] LABS: MANUAL DIFF FLAG NO
[2023-06-04 12:01] LABS: Basophils Percent Auto 0.7 % (0-2); Eosinophils Absolute Auto 0.1 X10*3/uL (0.0-0.4); Eosinophils Percent Auto 2.2 % (0-4); Hematocrit 42.5 % (42.0-52.0); Hemoglobin 13.9 g/dl (14.0-18.0); Imm Gran Abs Auto 0.02 X10*3/uL (0.00-0.03); Imm Gran Pct Auto 0.3 % (0.0-0.4); Lymphocytes Absolute Auto 1.7 X10*3/uL (1.2-4.9); Lymphocytes Percent Auto 28.7 % (20-40); Mean Corpuscular HGB Conc 32.7 g/dl (31.0-36.0); Mean Corpuscular Hemoglobin 28.3 pg (27.0-33.0); Mean Corpuscular Volume 86.4 fL (80.0-98.0); Mean Platelet Volume 11.6 fL (9.4-12.4); Monocytes Absolute Auto 0.6 X10*3/uL (0.1-1.2); Monocytes Percent Auto 9.7 % (2-11); Neutrophils Absolute Auto 3.5 x10*3/uL (2.0-8.3); Neutrophils Percent Auto 58.4 % (45-73); Platelet Count 241 X10*3/uL (160-400); Red Blood Count 4.92 X10*6/uL (4.60-5.80); Red Cell Distribution Width 13.2 % (11.0-16.0)
[2023-06-04 12:07] LABS: Appearance Urine Clear; Color Urine Yellow; Glucose Urine UA Negative (Negative); Leukocyte Esterase Urine Negative (Negative); Nitrite Urine Negative (Negative); Specific Gravity - Urine 1.015 (1.005-1.025); UMIC TRIGGER UACC YES; Urine Blood Moderate (2+) (Negative); Urine Ketones Negative (Negative); Urine Protein Negative (Neg-Trace)
[2023-06-04 12:12] LABS: Bacteria Urine None Seen (None Seen); Hyaline Casts Urine 0-2 /LPF (0-2); Squamous Epithelial Cell Urine 0-2 /HPF (0-2); WBC Urine 0-5 /HPF (0-5)
[2023-06-04 12:29] LABS: Alanine Aminotransferase 13 U/L (0-40); Albumin Level 4.5 g/dL (3.5-5.0); Alkaline Phosphatase 67 U/L (39-117); Anion Gap 11 (12-20); Aspartate Amino Transferase 20 U/L (5-37); Bilirubin Total 0.7 mg/dL (0.0-1.0); Blood Urea Nitrogen 23 mg/dL (9-16); Calcium 9.6 mg/dL (8.4-10.2); Carbon Dioxide 27 mmol/L (22-29); Chloride 105 mmol/L (96-108); Cholesterol 207 mg/dL (<200); Estimated Glomerular Filt Rate 59; Glucose Fasting 91 mg/dL (60-99); HDL Cholesterol 32 mg/dL (>40); LDL Cholesterol Calculated 149 mg/dL (<100); Potassium 4.3 mmol/L (3.3-5.1); Sodium 139 mmol/L (135-145); Total Protein 7.6 g/dL (6.5-8.0); Triglycerides 130 mg/dL (<150)
[2023-06-04 12:41] LABS: PSA,Total (Free>4and<10) 1.03 ng/mL (0.00-4.00)
== END 2023-06-04 11:21 | disposition home or self-care (01) ==
LOC: HO.LNP 11:20
PROVIDERS: Visit Provider Internal Medicine
DX: I10 Essential (primary) hypertension (principal); E78.00 Pure hypercholesterolemia, unspecified; Z12.5 Encounter for screening for malignant neoplasm of prostate
CPT/HCPCS: 80053; 80061; 81001; 84153; 85025

== ENCOUNTER → 2023-09-10 08:28 | Outpatient (BNVA) | payer MEDICARE, OTHER, SELFPAY | PROVIDERS: PCP Internal Medicine; Visit Provider Nurse Practitioner Family ==

== ENCOUNTER 2024-01-18 11:21 | Outpatient (REF) | payer MEDICARE, OTHER, SELFPAY ==
[2024-01-18 12:49] LABS: Cholesterol 196 mg/dL (<200); HDL Cholesterol 30 mg/dL (>40); LDL Cholesterol Calculated 138 mg/dL (<100); Triglycerides 144 mg/dL (<150)
== END 2024-01-18 11:22 | disposition home or self-care (01) ==
LOC: HO.LNP 11:21
PROVIDERS: Visit Provider Internal Medicine
DX: E78.00 Pure hypercholesterolemia, unspecified (principal)
CPT/HCPCS: 80061

== ENCOUNTER 2024-02-02 13:14 | Outpatient (AMB) | payer MEDICARE, OTHER, SELFPAY ==
--- OUTSIDE RECORDS SUMMARY | 2024-02-02 13:15 | XMS_ITS ---
Author Organization Naren Moreno MD Address [address] [place], [place] [id number] Care Team Providers Care Harnessmaker Name Role Phone Naren Moreno Primary Care Provider [phone] ALLERGIES No Known Allergies REASON FOR VISIT 6 months MEDICATIONS Medication SIG (Take, Route, Frequency, Duration) Notes Start Date End Date Status Zithromax Z-Harshad 250 MG 2 tablet on the irst day, then 1 tablet daily for 4 days Orally Once a day for 5 day(s) 08/29/2021 Not-Taki ng Lisinopril 5 MG TAKE 1 TABLET BY NATE TH EVERY DAY FOR 90 DAYS Active Eliquis 5 MG as directed Orally Twice a day Active Flecainide Acetate 150 MG as directed Orally bid Active Cardizem CD 120 MG 1 capsule Orally Onc e a day Active guaiFENesin-Codeine 100-10 MG/5ML 5 ml as needed Orally every 4 hrs for 10 days 08/29/2021 Not-Taki ng Amoxicillin-Pot Clavulanate 875-125 MG 1 tablet Orally every 12 hrs for 10 day(s) 08/29/2021 Not-Taking Vitamin D3 25 MCG (1000 UT) 1 capsule Orally Once a day for 30 day(s) Active Tessalon Perles 100 MG 1 capsule as need ed Orally Three times a day Not-Taking VITAL SIGNS BMI 31.53 kg/m2 01/25/2024 Blood pressure systolic 144 mm Hg 01/25/20 24 Blood pressure diastolic 70 mm Hg 024 Height 73 in 01/25/2024 Weight 239 lbs 01/25/2024 weight is up 5 pounds since 07-21-23 Encounters Encounter Location Date Provider Diagnosis Naren Moreno MD [address] [place] [address] [address] [place], [place] [phone] 01/25/2024 Naren Moreno Atrial fibrillation I48.91 ; Chronic sinusitis, unspecified J32.9 ; Obstructive sleep apnea G47.33 ; Essential hypertension I10 and Hypercholesterolemia E78.00 ASSESSMENTS Encounter Date Diagnosis Assessment Notes Treatment Notes Treatment Clinical Notes 01/25/2024 Atrial fibrillation (ICD-10 - I48.91) has not had any episodes. 01/25/2024 Chronic sinusitis, unspecified (ICD-10 - J32.9) 01/25/2024 Obstructive sleep ap lena (ICD-10 - G47.33) had been borderline and now is worse. 01/25/2024 Essential hypertensi on (ICD-10 - I10) stable, will continue current regiment 01/25/2024 Hypercholesterolemia (ICD-10 - E78.00) looking better, advided to watch diet PLAN OF TREATMENT Medication Medication Name Sig Start Date Stop Date Notes Lisinopril 5 MG TAKE 1 TABLET BY NATE TH EVERY DAY FOR 90 DAYS Eliquis 5 MG as directed Orally Twice a day Flecainide Acetate 150 MG as directed Orally bid Cardizem CD 120 MG 1 capsule Orally Once a day Treatment Notes Assessment Notes Atrial fibrillation has not had any epis odes. Obstructive sleep apnea had been borderl ine and now is worse. Essential hypertension stable, will cont inue current regiment Hypercholesterolemia looking better, adv ided to watch diet Next Appt Details Provider Name:Naren white, 07/15/2024 08:00:00 AM, [address] [place] [address], [address], [place], [place], [phone], Provider Name:Naren white, 07/22/2024 08:00:00 AM, [address] [place] [address], [address], [place], [place], [phone], Progress Notes * Examination Category Sub-Category Detail Notes General Examination GENERAL APPEARANCE: alert, w ell hydrated, in no distress HEAD: normocephalic HEART: no murmurs, rubs, ga llops , regular rate and rhythm LUNGS: no wheezes, rales, r honchi , good air movement , clear to auscultation bilaterally SKIN: good turgor
--- OUTSIDE RECORDS SUMMARY | 2024-02-02 13:15 | XMS_ITS ---
Author Organization Naren Moreno MD Address [address] [place] [phone] Care Team Providers Care Historic Interpreter Name Role Phone Naren Moreno Primary Care Provider REASON FOR VISIT tick MEDICATIONS Medication SIG (Take, Route, Frequency, Duration) Notes Start Date End Date Status Doxycycline Hyclate 100 MG 1 capsule Ora lly Twice a day for 1 days 08/03/2023 Active Encounters Encounter Location Date Provider Diagnosis Naren Moreno MD [address] [facility] [address] [place] [phone] 08/03/2023 Naren Moreno PLAN OF TREATMENT Medication Medication Name Sig Start Date Stop Date Notes Doxycycline Hyclate 100 MG 1 capsule Ora lly Twice a day for 1 days 08/03/2023 Next Appt Details Provider Name:Naren white, 07/15/2024 08:00:00 AM, [address] [place] [address], [place] [address], [place], [place], [phone], Provider Name:Naren white, 07/22/2024 08:00:00 AM, [address] [place] [address], [place] [address], [place], [place], [phone],
--- OUTSIDE RECORDS SUMMARY | 2024-02-02 13:15 | XMS_ITS ---
Author Organization Naren Moreno MD Address [address] [place] [phone] Care Team Providers Care Repeater Chief Name Role Phone Naren Moreno Primary Care Provider [phone] RESULTS Component Value Reference Range Notes Lipid Panel Reviewed date:01/18/2024 12:57:19 PM Interpretation: Performing Lab:[facility], [address] [place] [phone] Notes/Report: Triglycerides 144 <150 mg/dL Desirable Triglyceride: less than 150 mg/dL Borderline High Triglyceride 150-199 mg/dL High Triglyceride: 200-499 mg/dL Very High Triglyceride: greater than or equal to 5OO mg/dL Cholesterol 196 <200 mg/dL Desirable Cholesterol: less than 200 mg/dL Borderline High Cholesterol: 200-239 mg/dL High Cholesterol: greater than 239 mg/dL LDL Cholesterol Calculated 138 <100 mg/dL Desirable LDL: less than 100 mg/dL Near Optimal/Above Optimal LDL: 110-129 mg/dL Borderline High LDL: 130-159 mg/dL High LDL: 160-189 mg/dL Very High LDL: greater than or equal to 190 mg/dL HDL Cholesterol 30 >40 mg/dL Desirable HDL: greater than 40 mg/dL Note: This HDL assay may give artificially low results in patients with liver disease. REASON FOR VISIT lipids Encounters Encounter Location Date Provider Diagnosis Naren Moreno MD [address] [place] [phone] 01/18/2024 Naren Moreno Hypercholesterolemia E78.00 ASSESSMENTS Encounter Date Diagnosis Assessment Notes Treatment Notes Treatment Clinical Notes 01/18/2024 Hypercholesterolemia (ICD-10 - E78.00) PLAN OF TREATMENT Next Appt Details Provider Name:Naren Karolina Eamon white, 07/15/2024 08:00:00 AM, [address] [facility], [address], [place], [phone], Provider Name:Naren white, 07/22/2024 08:00:00 AM, [address] [facility], [address], [place], [phone],
--- OUTSIDE RECORDS SUMMARY | 2024-02-02 13:16 | XMS_ITS | Patient Health Record ---
Author Organization Naren Moreno MD Address [address] [place], [place] [phone] Care Team Providers Care Capital Equipment Specialist Name Role Phone Naren Moreno Primary Care Provider [phone] ALLERGIES No Known Allergies RESULTS Component Value Reference Range Notes Complete Blood Count Auto Di ff Reviewed date:06/04/2023 02:19:47 PM Interpretation: Performing Lab:[facility], [address] [place] [phone] Notes/Report: White Blood Count 6.0 4.8-10.8 X10*3/uL Red Blood Count 4.92 4.60-5.80 X10*6/uL Hemoglobin 13.9 14.0-18.0 g/dl Hematocrit 42.5 42.0-52.0 % Mean Corpuscular Volume 86.4 80.0-98.0 fL Mean Corpuscular Hemoglobin 28.3 27.0-33.0 pg Mean Corpuscular HGB Conc 32.7 31.0-36.0 g/dl Red Cell Distribution Width 13.2 11.0-16.0 % Platelet Count 241 160-400 X10*3/uL Mean Platelet Volume 11.6 9.4-12.4 fL Neutrophils Percent Auto 58.4 45-73 % Imm Gran Pct Auto 0.3 0.0-0.4 % Lymphocytes Percent Auto 28.7 20-40 % Monocytes Percent Auto 9.7 2-11 % Eosinophils Percent Auto 2.2 0-4 % Basophils Percent Auto 0.7 0-2 % NRBC Pct Auto 0.0 0.0-0.2 /100WBC Neutrophils Absolute Auto 3.5 2.0-8.3 x10*3/u L Imm Gran Abs Auto 0.02 0.00-0.03 X10*3/uL Lymphocytes Absolute Auto 1.7 1.2-4.9 X10*3/u L Monocytes Absolute Auto 0.6 0.1-1.2 X10*3/uL Eosinophils Absolute Auto 0.1 0.0-0.4 X10*3/u L Basophils Absolute Auto 0.0 0.0-0.2 X10*3/uL NRBC Abs Auto 0.000 0.0-0.012 X10*3/uL Comprehensive [place]. Panel Fa st Reviewed date:06/04/2023 02:31:17 PM Interpretation: Performing Lab:[address] [phone] Notes/Report: Sodium 139 135-145 mmol/L Potassium 4.3 3.3-5.1 mmol/L Chloride 105 96-108 mmol/L Carbon Dioxide 27 22-29 mmol/L Anion Gap 11 12-20 Blood Urea Nitrogen 23 9-16 mg/dL Creatinine 1.21 0.5-1.4 mg/dL Estimated Glomerular Filt Rate 59 NOTE: For -[place] individuals, multiply the result by 1.210. Chronic Kidney Disease: Estimated GFR < 60 mL/min/1.73m2 Severe Kidney Disease: Estimated GFR < 15 mL/min/1.73m2 Glucose Fasting 91 60-99 mg/dL Calcium 9.6 8.4-10.2 mg/dL Bilirubin Total 0.7 0.0-1.0 mg/dL Aspartate Amino Transferase 20 5-37 U/L Alanine Aminotransferase 13 0-40 U/L Total Protein 7.6 6.5-8.0 g/dL Albumin Level 4.5 3.5-5.0 g/dL Alkaline Phosphatase 67 39-117 U/L Lipid Panel Reviewed date:06/04/2023 12:51:15 PM Interpretation: Performing Lab:[address] [phone] Notes/Report: Triglycerides 130 <150 mg/dL Desirable Triglyceride: less than 150 mg/dL Borderline High Triglyceride 150-199 mg/dL High Triglyceride: 200-499 mg/dL Very High Triglyceride: greater than or equal to 5OO mg/dL Cholesterol 207 <200 mg/dL Desirable Cholesterol: less than 200 mg/dL Borderline High Cholesterol: 200-239 mg/dL High Cholesterol: greater than 239 mg/dL LDL Cholesterol Calculated 149 <100 mg/dL Desirable LDL: less than 100 mg/dL Near Optimal/Above Optimal LDL: 110-129 mg/dL Borderline High LDL: 130-159 mg/dL High LDL: 160-189 mg/dL Very High LDL: greater than or equal to 190 mg/dL HDL Cholesterol 32 >40 mg/dL Desirable HDL: greater than 40 mg/dL Note: This HDL assay may give artificially low results in patients with liver disease. PSA,Total (Free>4and<10) Reviewed date:06/04/2023 12:55:24 PM Interpretation: Performing Lab:[address] [phone] Notes/Report: PSA,Total (Free>4and<10) 1.03 0.00-4.00 ng/mL A Free PSA was not performed: The percentage of Free PSA can be used to enhance the differentiation of prostate cancer from benign prostatic disease in subjects whose PSA levels are between 4.0 and 10.0 ng/mL. For subjects whose PSA levels are below 4.0 or above 10.0 ng/mL, the risk of prostate cancer is determined on the basis of the PSA alone. Therefore the % Free PSA is recommended only for those subjects whose PSA levels are between 4.0 and 10.0 ng/mL. PSA methodology: Flood Alinity i Chemiluminescent Microparticle Immunoassay (CMIA) UA ClnCatch+Micro w/rflx Cul t Reviewed date:07/23/2023 08:09:44 AM Interpretation:CBACK 07/20 HEMATURIA Performing Lab:[address] [phone] Notes/Report: Urine, Clean Catch Color Urine Yellow Appearance Urine Clear PH 6.0 5.0-9.0 Glucose Urine UA Negative Negative mg/dL Urine Blood Moderate (2+) Negative Specific [place] - Urine 1.015 1.005-1.025 Urine Protein Negative Neg-Trace mg/dL Urine Ketones Negative Negative mg/dL Nitrite Urine Negative Negative Leukocyte Esterase Urine Negative Negative RBC Urine 11-20 0-2 /HPF WBC Urine 0-5 0-5 /HPF Squamous Epithelial Cell Urine 0-2 0-2 /HPF Bacteria Urine None Seen None Seen Hyaline Casts Urine 0-2 0-2 /LPF Lipid Panel Reviewed date:01/18/2024 12:57:19 PM Interpretation: Performing Lab:[facility], [address] [place] [phone] Notes/Report: Triglycerides 144 <150 mg/dL Desirable Triglyceride: [...] in patients with liver disease. REASON FOR REFERRAL Reason microscopic hematuri a Diagnosis 1 Microscopic hematuri a (R31.29) Referral Organization Naren Moreno MD Referring Provider First Name Naren Referring Provider Last Name Josh Referring Provider Speciality Internal M edicine Referred Provider DOMENIC DELATORRE Referred Provider Specialty Urology General Notes Robyn Day 08:27:33 AM EDT > info faxed [phone], Robyn Day 07/30/2023 11:50:01 AM EDT > info mailed to patient Referral Priority Routine Referral Appointment Date 08/28/2023 MEDICATIONS Medication SIG (Take, Route, Frequency, Duration) Notes Start Date End Date Status Zithromax Z-Harshad 250 MG 2 tablet on the irst day, then 1 tablet daily for 4 days Orally Once a day for 5 day(s) 08/29/2021 Not-Taki ng Lisinopril 5 MG TAKE 1 TABLET BY NATE TH EVERY DAY FOR 90 DAYS Active guaiFENesin-Codeine 100-10 MG/5ML 5 ml as needed Orally every 4 hrs for 10 days 08/29/2021 Not-Taki ng Amoxicillin-Pot Clavulanate 875-125 MG 1 tablet Orally every 12 hrs for 10 day(s) 08/29/2021 Not-Taking Vitamin D3 25 MCG (1000 UT) 1 capsule Orally Once a day for 30 day(s) Active Eliquis 5 MG as directed Orally Twice a day Active Flecainide Acetate 150 MG as directed Orally bid Active Cardizem CD 120 MG 1 capsule Orally Onc e a day Active Tessalon Perles 100 MG 1 capsule as need ed Orally Three times a day Not-Taking IMMUNIZATIONS Vaccine Route Administration Date Status Comme nts Covid Vaccine Unknown 09/18/2020 Refused Fluarix Quadrivalent Unknown 01/15/2021 Refused SOCIAL HISTORY Tobacco Use: Social History Observation Description Date Details (start date - stop date) Never Smoker NA - NA Sex Assigned At : Social History Observation Description Sex Assigned At Unknown Tobacco Use/Smoking Question Answer Notes Patient is a nonsmoker Additional Findings: Tobacco Non-User Cu rrent non-smoker, currently using no form of tobacco Alcohol Screen Question Answer Notes Did you have a drink contain ing alcohol in the past year? Yes How often did you have a dri nk containing alcohol in the past year? Monthly or less (1 point) How many drinks did you have on a typical day when you were drinking in the past year? 1 or 2 drinks (0 point) How often did you have 6 or more drinks on one occasion in the past year? Never (0 point) Points 1 Interpretation Negative PROBLEMS Problem Type ICD Code Onset Dates Problem Status W/U Status Risk SNOMED Code Notes Problem Essential hypertensi on (I10) Active confirmed 84612739 Problem Atrial fibrillation (I48.91) Active confirmed Atrial fibrillation (89467989) Problem Hypercholesterolemia (E78.00) Active confirmed 58322321 Problem Obstructive sleep ap lena (G47.33) Active confirmed Obstructive sleep apnea (39416287) Problem Chronic sinusitis, unspecified (J32.9) Active confirmed 840913884 VITAL SIGNS Blood pressure diastolic 70 mm Hg 01/25/2024 will ght is up 5 pounds since 07-21-23 Height 73 in 01/25/2024 weight is up 5 pounds since 07-21-23 Blood pressure systolic 144 mm Hg 01/25/2024 weig ht is up 5 pounds since 07-21-23 Weight 239 lbs 01/25/2024 weight is up 5 pounds since 07-21-23 BMI 31.53 kg/m2 01/25/2024 weight is up 5 pounds since 07-21-23 Encounters Encounter Location Date Provider Diagnosis Naren Moreno MD [address] [place] [id number] 07/21/2023 Naren Moreno Atrial fibrillation I48.91 ; Microscopic hematuria R31.29 ; Essential hypertension I10 ; Hypercholesterolemia E78.00 ; Colon cancer screening Z12.11 and Depression screening Z13.31 Naren Moreno MD [address] [place] [id number] 06/04/2023 Naren Moreno Essential hypertensi on I10 and Hypercholesterolemia E78.00 Naren Moreno MD [address] [place] [id number] 01/18/2024 Naren Moreno Hypercholesterolemia E78.00 Naren Moreno MD [address] [place] [id number] 01/25/2024 Naren Moreno Atrial fibrillation I48.91 ; Chronic sinusitis, unspecified J32.9 ; Obstructive sleep apnea G47.33 ; Essential hypertension I10 and Hypercholesterolemia E78.00 Naren Moreno MD [address] [place] [id number] 08/03/2023 Naren Moreno MD [address] [facility] [id number] 03/05/2023 Naren Moreno Chronic sinusitis, unspecified J32.9 ASSESSMENTS Encounter Date Diagnosis Assessment Notes Treatment Notes Treatment Clinical Notes 07/21/2023 Atrial fibrillation (ICD-10 - I48.91) stable, will continue current regiment 07/21/2023 Microscopic hematuri a (ICD-10 - R31.29) refer to urology/ 06/04/2023 Essential hypertensi on (ICD-10 - I10) 06/04/2023 Hypercholesterolemia (ICD-10 - E78.00) 01/18/2024 Hypercholesterolemia (ICD-10 - E78.00) 01/25/2024 Atrial fibrillation (ICD-10 - I48.91) has not had any episodes. 01/25/2024 Chronic sinusitis, unspecified (ICD-10 - J32.9) 03/05/2023 Chronic sinusitis, unspecified (ICD-10 - J32.9) Patient/Caregiver verbalizes understanding of medications side effects, interactions and warnings. 07/21/2023 Essential hypertensi on (ICD-10 - I10) stable, will continue current regiment 01/25/2024 Obstructive sleep ap lena (ICD-10 - G47.33) had been borderline and now is worse. 07/21/2023 Hypercholesterolemia (ICD-10 - E78.00) stable, will continue to monitor 01/25/2024 Essential hypertensi on (ICD-10 - I10) stable, will continue current regiment 07/21/2023 Colon cancer screeni ng (ICD-10 - Z12.11) guaiac negative 01/25/2024 Hypercholesterolemia (ICD-10 - E78.00) looking better, advided to watch diet 07/21/2023 Depression screening (ICD-10 - Z13.31) negative screen PLAN OF TREATMENT Pending Test Test Name Order Date XR CHEST 2 VIEW PA & LAT 09/05/2021 CA stress test 01/15/2021 Next Appt Details Provider Name:Naren Knutson ier, 07/15/2024 08:00:00 AM, [address] [place] [address], [address] [place] [address], [phone], Provider Name:Naren Knutson ier, 07/22/2024 08:00:00 AM, [address] [place] [address], [address] [place] [address], [phone], Insurance Providers Payer Name Payer Address Payer Phone Subscriber Number Group Number Insured Name Patient Relationship to Insured Coverage Start Date Coverage End Date MEDICARE NHIC ANU [address] [place] [address] [id number] Earnest Cerna Self - patient is the insured [employer] [address] [place] [phone] [id number] Earnest Cerna Self - patient is the insured MEDICAL (GENERAL) HISTORY Medical History History ICD Code colonoscopy 2017. due in 2026
--- NOTE | 2024-02-02 13:21 | A.OFFVIS_ITS ---
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 Allergies No Known Allergies [No Known Allergies*] Allergy (Verified 02/02/24 13:28) Medication List - Last Reconciled 02/02/24 by Sara Cade LPN apixaban (Eliquis) 5 mg PO BID 90 days cholecalciferol (vitamin D3) 25 mcg PO DAILY diltiazem HCl CD 120 mg PO DAILY flaxseed oil 1,000 mg PO DAILY flecainide 150 mg PO Q12H lisinopril 5 mg See Protocol PO DAILY 30 days multivitamin 1 tab PO DAILY omega 2-sma-bvf-fish oil 1,000 mg (120 mg-180 mg) (Fish Oil) 1 cap PO DAILY Do you need a note to return to daycare/school/sports/work: No HPI HPI godwin: Details: Earnest is 73 years old gentleman, moderately obese, has obstructive sleep apnea, but he is doing well with the conservative measures. He tries to sleep in lateral position most of the time. Once in a while he turns on his back and he wakes up with gasping like feeling . His breathing has been good and he has not needed to use any bronchodilator inhaler. Weight burns he has not made any progress. Overall he claims that he is feeling OK . [facility] Medical History GODWIN (obstructive sleep apnea) Somnolence, daytime Bronchial asthma Sinusitis Cough Paroxysmal atrial flutter Atrial flutter with rapid ventricular response Hypercholesteremia HTN (hypertension) Atrial fibrillation Surgical History Hx of elbow surgery Family History Father No problems noted. Mother Diabetes Social History Household Members: Spouse and Family Housing: House Alcohol intake: former Patient Tobacco Use Status: Former Tobacco user service: Yes Current occupational status: retired Review of Systems Const All systems reviewed & are unremarkable except as noted in HPI and below Eyes Reports no additional complaints ENT Reports nasal congestion (MILD OFF AND ON) and Reports nasal discharge (MILD OFF AND ON) Card Denies chest pain, Reports irregular heart rhythm (History of paroxysmal atrial fibrillation, currently controlled.) and Denies leg edema Resp Reports as per HPI and Reports cough GI Reports no additional complaints Reports no additional complaints Musc Reports no additional complaints Skin/Breast Reports system reviewed and no additional complaints, except as documented Neuro Reports no additional complaints Physical Exam Tele visit so there was. No physical examination Telehealth Telehealth Minutes spent on Phone/Video with Pt.: 20 Assessment & Plan Assessment & Plan (1) GODWIN (obstructive sleep apnea): Comment: SLEEP STUDY DID SHOW MODERATELY SEVERE OBSTRUCTIVE SLEEP APNEA, BUT PREDOMINANTLY POSITIONAL. ( IN SUPINE POSITION) HE WANTS TO CONTINUE TRYING CONSERVATIVE MEASURES . Code(s): G47.33 - Obstructive sleep apnea (adult) (pediatric) Category: Medical Plan: Patient has opted to treat with position therapy. He is doing well and sleeping good as long as he can stay in lateral position. He should also try to lose weight which he has not been able to do. IT IS OKAY TO COME TO THE OFFICE FOLLOW-UP ONCE A YEAR. (2) Bronchial asthma: Comment: PAST HISTORY OF SMOKING, PATIENT HAS H/O A MILD INTERMITTENT BRONCHIAL ASTHMA. IT IS REMAINING UNDER CONTROL AND IN ACTIVE, PATIENT HAS NOT NEEDED TO USE A LBUTEROL. Code(s): J45.909 - Unspecified asthma, uncomplicated Category: Medical Plan: CONTINUE TO WATCH AND IF THE SYMPTOMS RECUR SUCH WHEEZING OR COUGH THEN WE WILL RENEW PRESCRIPTION FOR ALBUTEROL. Coding Level of Care Code Tele Est Pt Level 3 (03601) Diagnoses GODWIN (obstructive sleep apnea) G47.33 Bronchial asthma J45.909
== END 2024-02-02 13:56 | disposition home or self-care (01) ==
PROVIDERS: PCP Internal Medicine; Visit Provider Internal Medicine
DX: G47.33 Obstructive sleep apnea (adult) (pediatric) (principal); J45.909 Unspecified asthma, uncomplicated
CPT/HCPCS: 99442

== ENCOUNTER → 2024-02-02 13:14 | Outpatient (BNVA) | payer MEDICARE, OTHER, SELFPAY | PROVIDERS: PCP Internal Medicine; Visit Provider Internal Medicine ==

== ENCOUNTER 2024-06-23 08:02 | Outpatient (AMB) | payer MEDICARE, OTHER, SELFPAY ==
[2024-06-23 08:05] VITALS: BP 114/62; PULSE 59; BMI 30.5
--- NOTE | 2024-06-23 08:05 | MHC.OFFVIS ---
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: No Allergies No Known Allergies [No Known Allergies*] Allergy (Verified 06/23/24 08:07) Medication List - Last Reconciled 06/23/24 by Lorenza Gonzales NP-C apixaban (Eliquis) 5 mg PO BID 90 days cholecalciferol (vitamin D3) 25 mcg PO DAILY diltiazem HCl CD 120 mg PO DAILY flaxseed oil 1,000 mg PO DAILY flecainide 150 mg PO Q12H lisinopril 5 mg See Protocol PO DAILY 30 days multivitamin 1 tab PO DAILY omega 1-olj-xrt-fish oil 1,000 (120-180) mg (Fish Oil) 1 cap PO DAILY HPI HPI Atrial fibrillation: Details: Earnest is a 74-year-old male with past medical history of hypertension, hyperlipidemia, sleep apnea, cardiomyopathy with tachyarrhythmia, paroxysmal AFib who presents for follow-up. Today he reports he has been doing well since his last visit, 03/02/23. He has not had any heart palpitations or concerns for recurrent PAF. No chest discomfort at rest or with activity. No shortness of breath, PND, orthopnea or edema. No presyncope, syncope, falls. Has been tries to sleep on his side. Does not want to wear a CPAP mask if he can avoid it. 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 Taking all meds as directed. No bleeding issues. Has upcoming PCP visit and labs will be done. [facility] Medical History GODWIN (obstructive sleep apnea) Somnolence, daytime Bronchial asthma Sinusitis Cough Paroxysmal atrial flutter Atrial flutter with rapid ventricular response Hypercholesteremia HTN (hypertension) Atrial fibrillation Surgical History Hx of elbow surgery Family History Father No problems noted. Mother Diabetes Social History Household Members: Spouse and Family Housing: House Alcohol intake: former Patient Tobacco Use Status: Former Tobacco user service: Yes Current occupational status: retired Review of Systems Const All systems reviewed & are unremarkable except as noted in HPI and below ENT Denies dizziness Card Denies chest pain, Denies chest pain at rest, Denies chest pain with activity, Denies rapid heart rate, Denies pedal edema, Denies edema, Denies leg edema, Denies lightheadedness, Denies palpitations, Denies dyspnea, Denies dyspnea on exertion and Denies orthopnea Resp Denies cough, Denies dyspnea and Denies dyspnea on exertion GI Denies hematochezia and Denies change in stool character Musc Denies abnormal gait, Denies limited range of motion, Denies muscle cramps, Denies muscle weakness, Denies numbness, Denies radiating pain into limb, Denies stiffness and Denies tingling Neuro Denies abnormal gait, Denies dizziness, Denies numbness and Denies tingling Endo Denies palpitations Physical Exam Vital Signs: Last Vital Signs Pulse 59 06/23/24 08:05 BP 114/62 06/23/24 08:05 BMI result Body Mass Index 30.5 Const General: cooperative, healthy appearing, comfortable and no acute distress Orientation/consciousness: patient oriented x3 Neck Neck: Yes normal visual inspection and Yes no JVD Resp Effort & Inspection: normal respiratory effort Auscultation: clear to auscultation bilaterally, no rales, no rhonchi and no wheezes Cardio Rate: regular rate Rhythm: regular rhythm Heart sounds: S1 normal heart sound present, S2 normal heart sound present, no gallops, no murmurs and no rubs Neuro General: patient oriented x3 Extrem General: Yes normal to inspection, No no pedal edema and No calf tenderness Psych Appearance: grossly normal Mental Status: mental status grossly normal Speech and movement: Normal speech and movement present Office Procedures EKG Details: Today, read by me, Sinus Bradycardia, rate 59, Qtc 433ms [id number], Complete Assessment & Plan Assessment & Plan (1) Atrial fibrillation: Code(s): I48.91 - Unspecified atrial fibrillation Category: Medical Plan: History of paroxysmal AFib. Currently being treated with rhythm control. On flecainide for antiarrhythmic therapy. On diltiazem for heart rate control. Doing well without any known recurrent atrial fibrillation. EKG done today showing sinus bradycardia , rate 59. On Eliquis for anticoagulation. No bleeding issues reported. Chads Vasc score 2-3. He will be having labs with PCP in near future. Should have biannual kidney testing. Continue current managment. Office EKG in 6 mo. Cardiology OV 1 yr, sooner if needed (2) HTN (hypertension): Code(s): I10 - Essential (primary) hypertension Category: Medical Plan: Well controlled at this time. No medication changes are made (3) Cardiomyopathy: Code(s): I42.9 - Cardiomyopathy, unspecified Category: Medical Plan: Cardiomyopathy in the past with AFib RVR. Most recent echo 01/28/2023 showing EF 55-60%, mild AR, mild MR, ascending aorta 3.8 cm. (4) GODWIN (obstructive sleep apnea): Comment: SLEEP STUDY DID SHOW MODERATELY SEVERE OBSTRUCTIVE SLEEP APNEA, BUT PREDOMINANTLY POSITIONAL. ( IN SUPINE POSITION) HE WANTS TO CONTINUE TRYING CONSERVATIVE MEASURES . Code(s): G47.33 - Obstructive sleep apnea (adult) (pediatric) Category: Medical Plan: Currently not using CPAP. He has been working on side sleeping. If he is unable to effectively control sleep apnea with this method he will pursue CPAP mask. Plan Time spent with chart review, documentation, interview, assessment Coding Level of Care Code Est Pt Level 4 (97303) Complex EM visit Add On G2211 Diagnoses Atrial fibrillation I48.91 HTN (hypertension) I10 Cardiomyopathy I42.9 GODWIN (obstructive sleep apnea) G47.33 CPT Codes EKG - CPT: 52662-[id number], Complete ([id number]) Time Spent (min) 28
--- OUTSIDE RECORDS SUMMARY | 2024-06-23 08:08 | XMS_ITS ---
Author Organization Naren Moreno MD Address [address] [place] [phone] Care Team Providers Care Dietitian Teaching Name Role Phone Naren Moreno Primary Care Provider Results Component Value Reference Range Notes Lipid Panel Reviewed date:01/18/2024 12:57:19 PM Interpretation: Performing Lab:[facility], [address] [place] [id number] Notes/Report: Triglycerides 144 <150 mg/dL Desirable Triglyceride: [...] Naren Moreno MD [address] [place] [phone] 01/18/2024 Naren Moreno Hypercholesterolemia E78.00 Assessments Encounter Date Diagnosis (ICD Code) Assessment Notes Treatment Notes Treatment Clinical Notes Section Notes 01/18/2024 Hypercholesterolemia (ICD-10 - E78.00) Plan Of Treatment Next Appt Details Provider Name:Naren Karolina Knutson ier, 07/15/2024 08:00:00 AM, [address], [address], [place], [phone], Provider Name:Naren Knutson ier, 07/22/2024 08:00:00 AM, [address], [address], [place], [phone], Progress Notes * CERNA Adams ADOB:[birth year] (73 yo M)Acc No.[id number]:01/18/2024 Progress Note Patient:?Adams Cerna A Provider:?Naren Moreno MD :1950???Age:73 Y???Sex:Male Dawson e:01/18/2024 Address:[address] [place], [place] [phone] Subjective: * Chief Complaints: * ???Lipids * Medical History:? * Surgical History:? * Hospitalization/Major Diagno stic Procedure:? * Medications:? Objective: Assessment: * Assessment: 1.?Hypercholesterolemia - E7 8.00 (Primary)? Plan: * Treatment: * Procedure Codes:?50209 VENIP UNCT, ROUTINE* * * Sign off status: Completed true * Provider:?Naren Moreno MD Date:?1 Generated for Pal vitale/Pranav/eTransmitting on:?06/23/2024 08:08 AM EDT
--- OUTSIDE RECORDS SUMMARY | 2024-06-23 08:08 | XMS_ITS ---
Author Organization Naren Moreno MD Address [address] [place], [place] [phone] Care Team Providers Care Professor Of Vegetable Science Name Role Phone Naren Moreno Primary Care Provider Allergies No Known Allergies REASON FOR VISIT 6 months Medications Medication SIG (Take, Route, Frequency, Duration) Notes [...] ed Orally Three times a day Not-Taking Vital Signs Blood pressure systolic 144 mm Hg 01/25/20 24 Blood pressure diastolic 70 mm Hg 024 Height 73 in 01/25/2024 Weight 239 lbs 01/25/2024 BMI 31.53 kg/m2 01/25/2024 weight is up 5 pounds since 07-21-23 Encounters Encounter Location Date Provider Diagnosis Naren Moreno MD [address] [place] [address] [place] [phone] 01/25/2024 Naren Moreno Atrial fibrillation I48.91 ; Chronic sinusitis, unspecified J32.9 ; Obstructive sleep apnea G47.33 ; Essential hypertension I10 and Hypercholesterolemia E78.00 Assessments Encounter Date Diagnosis (ICD Code) Assessment Notes Treatment Notes Treatment Clinical Notes Section Notes 01/25/2024 Atrial fibrillation (ICD-10 - I48.91) has not had any episodes. 01/25/2024 Chronic sinusitis, unspecified (ICD-10 - J32.9) 01/25/2024 Obstructive sleep ap lena (ICD-10 - G47.33) had been borderline and now is worse. 01/25/2024 Essential hypertensi on (ICD-10 - I10) stable, will continue current regiment 01/25/2024 Hypercholesterolemia (ICD-10 - E78.00) looking better, advided to watch diet Plan Of Treatment Medication Medication Name Sig Start Date Stop [...] Details Provider Name:Naren white, 07/15/2024 08:00:00 AM, [address] [place] [address], Suite [facility], [place], [place], [phone], Provider Name:Naren white, 07/22/2024 08:00:00 AM, [address] [place] [address], Suite [facility], [place], [place], [phone], Progress Notes * Adams CERNA ADOB:[birth year] (73 yo M)Acc No.[id number]:01/25/2024 Progress Notes Patient:?Adams Cerna A Provider:?Naren Moreno MD :1950???Age:73 Y???Sex:Male Dawson e:01/25/2024 Address:[address] [place] [address], [id number] Subjective: * Chief Complaints: * ???6 months * HPI: ???Symptom(s):? patient is a 73 yo male here for 6 month follow up visit here for follow up. * ROS:?General/Constitutional:?Denies?Chills.?Denies?Fatigue.?Denies?Fever.?Denies?Headache.?ENT:?Patient denies?decreased sense of smell , any loss of taste , sore throat.?Denies?Sore throat.?Respiratory:?Denies?Cough.?Denies?Shortness of breath at rest.?Denies?Shortness of breath with exertion.?Cardiovascular:?Denies?Chest pain at rest.?Denies?Chest pain with exertion.?Denies?Dizziness.?Denies?Palpitations.?Denies?Shortness of breath.?Gastrointestinal:?Denies?Diarrhea.?Denies?Nausea.?Musculoskeletal:?Patient denies?muscle aches.?Peripheral Vascular:?Patient denies?red and blue toes.? * Medical History:? * Surgical History:? * Hospitalization/Major Diagno stic Procedure:? * Medications:?TakingFlecainid e Acetate 150 MG Tablet as directed Orally bidVitamin D3 25 MCG (1000 UT) Capsule 1 capsule Orally Once a dayEliquis 5 MG Tablet as directed Orally Twice a dayCardizem CD 120 MG Capsule Extended Release 24 Hour 1 capsule Orally Once a dayLisinopril 5 MG Tablet TAKE 1 TABLET BY MOUTH EVERY DAY FOR 90 DAYS Taking Flecainide Acetate 150 MG Tablet as directed Orally bidTaking Vitamin D3 25 MCG (1000 UT) Capsule 1 capsule Orally Once a dayTaking Eliquis 5 MG Tablet as directed Orally Twice a dayTaking Cardizem CD 120 MG Capsule Extended Release 24 Hour 1 capsule Orally Once a dayTaking Lisinopril 5 MG Tablet TAKE 1 TABLET BY MOUTH EVERY DAY FOR 90 DAYS Not-Taking/PRNTessalon Perles 100 MG Capsule 1 capsule as needed Orally Three times a dayguaiFENesin-Codeine 100-10 MG/5ML Solution 5 ml as needed Orally every 4 hrsAmoxicillin-Pot Clavulanate 875-125 MG Tablet 1 tablet Orally every 12 hrsZithromax Z-Harshad 250 MG Tablet 2 tablet on the first day, then 1 tablet daily for 4 days Orally Once a dayNot-Taking/PRN Tessalon Perles 100 MG Capsule 1 capsule as needed Orally Three times a dayNot-Taking/PRN guaiFENesin-Codeine 100-10 MG/5ML Solution 5 ml as needed Orally every 4 hrsNot-Taking/PRN Amoxicillin-Pot Clavulanate 875-125 MG Tablet 1 tablet Orally every 12 hrsNot-Taking/PRN Zithromax Z-Harshad 250 MG Tablet 2 tablet on the first day, then 1 tablet daily for 4 days Orally Once a dayDiscontinuedDoxycycline Hyclate 100 MG Capsule 1 capsule Orally Twice a dayMedication List reviewed and reconciled with the patientDiscontinued Doxycycline Hyclate 100 MG Capsule 1 capsule Orally Twice a dayMedication List reviewed and reconciled with the patient * Allergies:?N.K.D.A.yes[Aller gies Verified] Objective: * Vitals:?Ht: 73, Wt:239, BMI: 31.53, BP:144/70, Repeat BP:120/80 weight is up 5 pounds since 07-21-23. * ???Past Orders: ???Lab:Lipid Panel (Order Da te - 01/18/2024) (Collection Date - 01/18/2024) ? Value Reference Range ?Triglycerides 144 <150 - mg/dL ?Cholesterol 196 <200 - m g/dL ?LDL Cholesterol Calculated 138 H <100 - mg/dL ?HDL Cholesterol 30 L >40 - mg/dL * Examination: ???General Examination: ?GENERAL APPEARANCE:?alert, well hydrated, in no distress.?HEAD:?normocephalic.?SKIN:?good turgor.?HEART:?no murmurs, rubs, gallops , regular rate and rhythm.?LUNGS:?no wheezes, rales, rhonchi , good air movement , clear to auscultation bilaterally.? Assessment: * Assessment: 1.?Atrial fibrillation - I48 .91?2.?Chronic sinusitis, unspecified - J32.9?3.?Obstructive sleep apnea - G47.33?4.?Essential hypertension - I10?5.?Hypercholesterolemia - E78.00? Plan: * Treatment: 2.?Obstructive sleep apnea? Notes: had been borderline and now is worse. ?? 3.?Essential hypertension? Continue Cardizem CD Capsule Extended Release 24 Hour, 120 MG, 1 capsule, Orally, Once a day;?Continue Lisinopril Tablet, 5 MG, TAKE 1 TABLET BY MOUTH EVERY DAY FOR 90 DAYS.?? Notes: stable, will continue current regiment?? 4.?Hypercholesterolemia? Notes: looking better, advided to watch diet?? * Procedure Codes:? * * Sign off status: Completed true * Provider:?Naren Moreno MD Date:?1 Generated for Pal vitale/Pranav/eTransmitting on:?06/23/2024 08:07 AM EDT History and Physical Notes * HPI (History of Present Illness) Category Sub-Category Detail Notes Category Not es Symptom(s) patient is a 73 yo male here for 6 month follow up visit here for follow up Examination Category Sub-Category Detail Notes Category Not es General Examination GENERAL APPEARANCE: alert, w ell hydrated, in no distress HEAD: normocephalic HEART: no murmurs, rubs, ga llops , regular rate and rhythm LUNGS: no wheezes, rales, r honchi , good air movement , clear to auscultation bilaterally SKIN: good turgor
--- OUTSIDE RECORDS SUMMARY | 2024-06-23 08:08 | XMS_ITS | Patient Health Record ---
Author Organization Naren Moreno MD Address [address] [place], [place] [id number] Care Team Providers Care Coffee Machine Technician Name Role Phone Naren Moreno Primary Care Provider Allergies No Known Allergies Results Component Value Reference Range Notes Lipid Panel Reviewed date:01/18/2024 12:57:19 PM Interpretation: Performing Lab:[facility], [address] [place] [phone] Notes/Report: Triglycerides 144 <150 mg/dL Desirable Triglyceride: [...] low results in patients with liver disease. Reason For Referral Reason microscopic hematuri a Diagnosis 1 Microscopic hematuri a (R31.29) Referral Organization Naren Moreno MD Referring Provider First Name Naren Referring Provider Last Name Josh Referring Provider Speciality Internal M edicine Referred Provider DOMENIC DELATORRE Referred Provider Specialty Urology General Notes Robyn Day 08:27:33 AM EDT > info faxed [phone] Annette 07/30/2023 11:50:01 AM EDT > info mailed to patient Referral Priority Routine Referral Appointment Date 08/28/2023 Medications Medication SIG (Take, Route, Frequency, Duration) Notes Start Date End Date Status Lisinopril 5 MG TAKE 1 TABLET BY NATE TH EVERY DAY for 90 Active Zithromax Z-Harshad 250 MG 2 tablet on the irst day, then 1 tablet daily for 4 days Orally Once a day for 5 day(s) 08/29/2021 Not-Taki ng guaiFENesin-Codeine 100-10 MG/5ML 5 ml as needed [...] ed Orally Three times a day Not-Taking Immunizations Vaccine Route Administration Date Status Comme nts Covid Vaccine Unknown 09/18/2020 Refused Fluarix Quadrivalent Unknown 01/15/2021 Refused Social History Tobacco Use: Social History Observation Description Date Details (start date - stop date) Never Smoker NA - NA Tobacco Use/Smoking Question Answer Notes Patient is [...] Never (0 point) Points 1 Interpretation Negative Problems Problem Type SNOMED Code ICD Code Onset Dates Problem Status W/U Status Risk Notes Problem Atrial fibrillation (99618514) Atrial fibrillation (I48.91) Active confirmed Problem 979056401 Chronic sinusiti s, unspecified (J32.9) Active confirmed Problem 73417273 Essential hypert ension (I10) Active confirmed Problem Obstructive sleep apnea (41884115) Obstructive sleep apnea (G47.33) Active confirmed Problem 96167362 Hypercholesterol emia (E78.00) Active confirmed Vital Signs Blood pressure diastolic 70 mm Hg 01/25/2024 [...] Date Provider Diagnosis Naren Moreno MD [address] [facility] [address] [place] [phone] 07/21/2023 Naren Moreno Atrial fibrillation I48.91 ; Microscopic hematuria R31.29 ; Essential hypertension I10 ; Hypercholesterolemia E78.00 ; Colon cancer screening Z12.11 and Depression screening Z13.31 Naren Moreno MD [address] [place] [address] Drive [address] [place] [phone] 01/18/2024 Naren Moreno Hypercholesterolemia E78.00 Naren Moreno MD [address] [place] [address] [phone] 01/25/2024 Naren Moreno Atrial fibrillation I48.91 ; Chronic sinusitis, unspecified J32.9 ; Obstructive sleep apnea G47.33 ; Essential hypertension I10 and Hypercholesterolemia E78.00 Naren Moreno MD [address] [facility] [address] [facility] [address] [place] [phone] 08/03/2023 Naren Moreno Assessments Encounter Date Diagnosis (ICD Code) Assessment Notes Treatment Notes Treatment Clinical Notes Section Notes 07/21/2023 Atrial fibrillation (ICD-10 - I48.91) stable, will continue current regiment 07/21/2023 Microscopic hematuri a (ICD-10 - R31.29) refer to urology/ 01/18/2024 Hypercholesterolemia (ICD-10 - E78.00) 01/25/2024 Atrial fibrillation (ICD-10 - I48.91) has not had any episodes. 01/25/2024 Chronic sinusitis, unspecified (ICD-10 - J32.9) 07/21/2023 Essential hypertensi on (ICD-10 - I10) [...] Depression screening (ICD-10 - Z13.31) negative screen Plan Of Treatment Pending Test Test Name Order Date XR CHEST 2 VIEW PA & LAT 09/05/2021 CA stress test 01/15/2021 Next Appt Details Provider Name:Naren Knutson ier, 07/15/2024 08:00:00 AM, [address] [place] [address], [address], [phone], Provider Name:Naren Knutson ier, 07/22/2024 08:00:00 AM, [address] [place] [address], [address], [phone], Insurance Providers Payer Name Payer Address Payer Phone Subscriber Number Group Number Insured Name Patient Relationship to Insured Coverage Start Date Coverage End Date MEDICARE NHIC [address] [place] [address] [id number] Earnest Cerna Self - patient is the insured [facility] [employer] [facility] [employer] [address] [place] [phone] [id number] Earnest Cerna Self - patient is the insured Medical (General) History Medical History History ICD Code colonoscopy 2017. due in 2026
--- OUTSIDE RECORDS SUMMARY | 2024-06-23 08:08 | XMS_ITS ---
Author Organization Naren Moreno MD Address [address] [place] [phone] Care Team Providers Care Supervisor Sulfuric Acid Plant Name Role Phone Naren Moreno Primary Care Provider REASON FOR VISIT tick Medications Medication SIG (Take, Route, Frequency, Duration) Notes Start Date End Date Status Doxycycline Hyclate 100 MG 1 capsule Ora lly Twice a day for 1 days 08/03/2023 Active Encounters Encounter Location Date Provider Diagnosis Naren Moreno MD [address] [place] [phone] 08/03/2023 Naren Moreno Plan Of Treatment Medication Medication Name Sig Start Date Stop Date Notes Doxycycline Hyclate 100 MG 1 capsule Ora lly Twice a day for 1 days 08/03/2023 Next Appt Details Provider Name:Naren white, 07/15/2024 08:00:00 AM, [address] [place] [address], [address], [phone], Provider Name:Naren white, 07/22/2024 08:00:00 AM, [address] [place] [address], [address], [phone], Progress Notes * Adams CERNA ADOB:[birth year] (73 yo M)Acc No.[id number]:08/03/2023 Patient:?Adams Cerna :1950???Age:73 Y???Sex:Male Address:[address] [place] [address], [place], [address] * Refills? Start Doxycycline Hyclate Capsule, 100 MG, Orally, 2 Capsule, 1 capsule, Twice a day, 1 days, Refills=4 * true * Date:? Generated for Pal vitale/Pranav/Delvisitting on:?06/23/2024 08:08 AM EDT
== END 2024-06-23 08:32 | disposition home or self-care (01) ==
LOC: HO.HCS 08:03
PROVIDERS: PCP Internal Medicine; Visit Provider Nurse Practitioner Family
DX: I48.91 Unspecified atrial fibrillation (principal); I10 Essential (primary) hypertension; I42.9 Cardiomyopathy, unspecified; G47.33 Obstructive sleep apnea (adult) (pediatric)
CPT/HCPCS: 93010; 99214; G2211

== ENCOUNTER → 2024-06-23 08:02 | Outpatient (BNVA) | payer MEDICARE, OTHER, SELFPAY | PROVIDERS: PCP Internal Medicine; Visit Provider Nurse Practitioner Family | DX: I48.91 Unspecified atrial fibrillation (principal); I42.9 Cardiomyopathy, unspecified; I10 Essential (primary) hypertension; G47.33 Obstructive sleep apnea (adult) (pediatric) | CPT/HCPCS: 93005; 99212 ==

== ENCOUNTER 2024-07-15 10:30 | Outpatient (REF) | payer MEDICARE, OTHER, SELFPAY ==
[2024-07-15 10:33] LABS: MANUAL DIFF FLAG NO
[2024-07-15 10:49] LABS: Basophils Percent Auto 0.6 % (0-2); Eosinophils Absolute Auto 0.1 X10*3/uL (0.0-0.4); Hematocrit 40.3 % (42.0-52.0); Hemoglobin 13.2 g/dl (14.0-18.0); Imm Gran Abs Auto 0.02 X10*3/uL (0.00-0.03); Imm Gran Pct Auto 0.3 % (0.0-0.4); Lymphocytes Absolute Auto 1.6 X10*3/uL (1.2-4.9); Mean Corpuscular HGB Conc 32.8 g/dl (31.0-36.0); Mean Corpuscular Hemoglobin 27.8 pg (27.0-33.0); Mean Corpuscular Volume 84.8 fL (80.0-98.0); Mean Platelet Volume 10.9 fL (9.4-12.4); Monocytes Absolute Auto 0.6 X10*3/uL (0.1-1.2); Monocytes Percent Auto 9.2 % (2-11); Neutrophils Absolute Auto 4.1 x10*3/uL (2.0-8.3); Neutrophils Percent Auto 63.9 % (45-73); Platelet Count 251 X10*3/uL (160-400); Red Blood Count 4.75 X10*6/uL (4.60-5.80); Red Cell Distribution Width 13.2 % (11.0-16.0); White Blood Count 6.5 X10*3/uL (4.8-10.8)
[2024-07-15 10:58] LABS: Appearance Urine Clear; Color Urine Yellow; Glucose Urine UA Negative (Negative); Leukocyte Esterase Urine Negative (Negative); Nitrite Urine Negative (Negative); Urine Blood Negative (Negative); Urine Ketones Negative (Negative); Urine Protein Negative (Neg-Trace)
[2024-07-15 11:02] LABS: Bacteria Urine None Seen (None Seen); Hyaline Casts Urine 0-2 /LPF (0-2); RBC Urine 0-2 /HPF (0-2); Squamous Epithelial Cell Urine 0-2 /HPF (0-2); WBC Urine 0-5 /HPF (0-5)
[2024-07-15 11:08] LABS: Alanine Aminotransferase 16 U/L (0-40); Albumin Level 4.3 g/dL (3.5-5.0); Anion Gap 11 (12-20); Aspartate Amino Transferase 26 U/L (5-37); Bilirubin Total 0.5 mg/dL (0.0-1.0); Blood Urea Nitrogen 20 mg/dL (9-16); Calcium 9.4 mg/dL (8.4-10.2); Carbon Dioxide 27 mmol/L (22-29); Chloride 106 mmol/L (96-108); Cholesterol 216 mg/dL (<200); Estimated Glomerular Filt Rate > 60; Glucose Fasting 90 mg/dL (60-99); HDL Cholesterol 32 mg/dL (>40); LDL Cholesterol Calculated 150 mg/dL (<100); Potassium 4.7 mmol/L (3.3-5.1); Sodium 139 mmol/L (135-145); Total Protein 7.3 g/dL (6.5-8.0); Triglycerides 172 mg/dL (<150)
[2024-07-15 11:16] LABS: PSA,Total (Free>4and<10) 0.92 ng/mL (0.00-4.00)
--- OUTSIDE RECORDS SUMMARY | 2024-07-15 11:27 | XMS_ITS ---
Author Organization Naren Moreno MD Address [address] [place], [place] [phone] Care Team Providers Care Shaping Machine Operator Name Role Phone Naren Moreno Primary Care Provider Results Component Value Reference Range Notes Complete Blood Count Auto Di ff (Not yet reviewed by provider) Interpretation: Performing Lab:[facility], [address] [place] [phone] Notes/Report: White Blood Count 6.5 4.8-10.8 X10*3/uL Red Blood Count 4.75 4.60-5.80 X10*6/uL Hemoglobin 13.2 14.0-18.0 g/dl Hematocrit 40.3 42.0-52.0 % Mean Corpuscular Volume 84.8 80.0-98.0 fL Mean Corpuscular Hemoglobin 27.8 27.0-33.0 pg Mean Corpuscular HGB Conc 32.8 31.0-36.0 g/dl Red Cell Distribution Width 13.2 11.0-16.0 % Platelet Count 251 160-400 X10*3/uL Mean Platelet Volume 10.9 9.4-12.4 fL Neutrophils Percent Auto 63.9 45-73 % Imm Gran Pct Auto 0.3 0.0-0.4 % Lymphocytes Percent Auto 24.0 20-40 % Monocytes Percent Auto 9.2 2-11 % Eosinophils Percent Auto 2.0 0-4 % Basophils Percent Auto 0.6 0-2 % NRBC Pct Auto 0.0 0.0-0.2 /100WBC Neutrophils Absolute Auto 4.1 2.0-8.3 x10*3/u L Imm Gran Abs Auto 0.02 0.00-0.03 X10*3/uL Lymphocytes Absolute Auto 1.6 1.2-4.9 X10*3/u L Monocytes Absolute Auto 0.6 0.1-1.2 X10*3/uL Eosinophils Absolute Auto 0.1 0.0-0.4 X10*3/u L Basophils Absolute Auto 0.0 0.0-0.2 X10*3/uL NRBC Abs Auto 0.000 0.0-0.012 X10*3/uL PSA,Total (Free>4and<10) (No t yet reviewed by provider) Interpretation: Performing Lab:[address] [phone] Notes/Report: PSA,Total (Free>4and<10) 0.92 0.00-4.00 ng/mL A Free PSA was not [...] Immunoassay (CMIA) UA ClnCatch+Micro w/rflx Cul t (Not yet reviewed by provider) Interpretation: Performing Lab:[address] [phone] Notes/Report: Urine, Clean Catch Color Urine Yellow Appearance Urine Clear PH 6.0 5.0-9.0 Glucose Urine UA Negative Negative mg/dL Urine Blood Negative Negative Specific [place] - Urine 1.020 1.005-1.025 Urine Protein Negative Neg-Trace mg/dL Urine Ketones Negative Negative mg/dL Nitrite Urine Negative Negative Leukocyte Esterase Urine Negative Negative RBC Urine 0-2 0-2 /HPF WBC Urine 0-5 0-5 /HPF Squamous Epithelial Cell Urine 0-2 0-2 /HPF Bacteria Urine None Seen None Seen Hyaline Casts Urine 0-2 0-2 /LPF REASON FOR VISIT yearly fasting labs Encounters Encounter Location Date Provider Diagnosis Naren Moreno MD [address] [place], [place] [phone] 07/15/2024 Naren Moreno Essential hypertensi on I10 and Hypercholesterolemia E78.00 Assessments Encounter Date Diagnosis (ICD Code) Assessment Notes Treatment Notes Treatment Clinical Notes Section Notes 07/15/2024 Essential hypertensi on (ICD-10 - I10) 07/15/2024 Hypercholesterolemia (ICD-10 - E78.00) Plan Of Treatment Pending Test Test Name Order Date Complete Blood Count Auto Diff Comprehensive [place]. Panel Fast Lipid Panel 07/15/2024 PSA,Total (Free>4and<10) 07/15/2024 UA ClnCatch+Micro w/rflx Cult 07/15/2024 Next Appt Details Provider Name:Naren Knutson ier, 07/26/2024 09:30:00 AM, [address] [facility], [address], [place], [place], [phone], Progress Notes * Adams CERNA ADOB:[birth year] (74 yo M)Acc No.[id number]:07/15/2024 Progress Note Patient:?Adams CERNA A Provider:?Naren Moreno MD :1950???Age:74 Y???Sex:Male Dawson e:07/15/2024 Address:[address] [place] [address], [facility] Subjective: * Chief Complaints: * ???1. Yearly fasting labs. * Medical History:? Objective: * Vitals:? Assessment: * Assessment: 1.?Essential hypertension - I10 (Primary)???2.?Hypercholesterolemia - E78.00??? Plan: * Treatment: 2.?Hypercholesterolemia?LAB: Complete Blood Count Auto Diff (Collection Date & Time - 07/15/2024 08:00 AM) ?LAB: Comprehensive [place]. Panel Fast ?LAB: Lipid Panel ?LAB: PSA,Total (Free>4and<10) (Collection Date & Time - 07/15/2024 08:00 AM) ?LAB: UA ClnCatch+Micro w/rflx Cult (Collection Date & Time - 07/15/2024 08:00 AM) * * The named appointment provid er may or may not be the originator of this progress note, and it is not deemed complete until electronically signed by the appointment provider. Sign off status: Pending * Provider:?Naren Moreno MD Date:?0 07/15/2024 Generated for Pal vitale/Pranav/Delvisitting on:?07/15/2024 11:26 AM EDT
--- OUTSIDE RECORDS SUMMARY | 2024-07-15 11:27 | XMS_ITS | Patient Health Record ---
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 Complete Blood Count Auto Di ff (Not yet reviewed by provider) Interpretation: Performing Lab:[facility], [address] [place] [phone] Notes/Report: White Blood Count 6.5 4.8-10.8 X10*3/uL [...] t yet reviewed by provider) Interpretation: Performing Lab:[facility], [address] [place] [phone] Notes/Report: PSA,Total (Free>4and<10) 0.92 0.00-4.00 ng/mL A [...] (Not yet reviewed by provider) Interpretation: Performing Lab:[facility], [address] [place] [phone] Notes/Report: Urine, Clean Catch Color Urine Yellow Appearance Urine Clear PH 6.0 5.0-9.0 Glucose Urine UA Negative Negative mg/dL Urine Blood Negative Negative Specific [place] - Urine 1.020 1.005-1.025 Urine Protein Negative Neg-Trace mg/dL Urine Ketones Negative Negative mg/dL Nitrite Urine Negative Negative Leukocyte Esterase Urine Negative Negative RBC Urine 0-2 0-2 /HPF WBC Urine 0-5 0-5 /HPF Squamous Epithelial Cell Urine 0-2 0-2 /HPF Bacteria Urine None Seen None Seen Hyaline Casts Urine 0-2 0-2 /LPF Reason For Referral Reason microscopic hematuri a Diagnosis 1 Microscopic hematuri a (R31.29) Referral Organization Naren Moreno MD Referring Provider First Name Naren Referring Provider Last Name Josh Referring Provider Speciality Internal M edicine Referred Provider DOMENIC DELATORRE Referred Provider Specialty Urology General Notes Robyn Day 08:27:33 AM EDT > info faxed [phone], Robyn Day 07/30/2023 11:50:01 AM EDT > info mailed to patient Referral Priority Routine Referral Appointment Date 08/28/2023 Medications Medication SIG (Take, Route, Frequency, Duration) Notes Start Date End Date Status Lisinopril 5 MG TAKE 1 TABLET BY EVERY DAY for 90 Active Zithromax Z-Harshad [...] W/U Status Risk Notes Problem Atrial fibrillation (89035954) Atrial fibrillation (I48.91) Active confirmed Problem 284594975 Chronic sinusiti s, unspecified (J32.9) Active confirmed Problem 24761817 Essential hypert ension (I10) Active confirmed Problem Obstructive sleep apnea (66982155) Obstructive sleep apnea (G47.33) Active confirmed Problem 66410518 Hypercholesterol emia (E78.00) Active confirmed Vital Signs [...] 01/25/2024 weight is up 5 pounds since 4-23-24 Encounters Encounter Location Date Provider Diagnosis Naren Moreno MD [address] [place] [phone] 07/21/2023 Naren Moreno Atrial fibrillation I48.91 ; Microscopic hematuria R31.29 ; Essential hypertension I10 ; Hypercholesterolemia E78.00 ; Colon cancer screening Z12.11 and Depression screening Z13.31 Naren Moreno MD [address] [phone] 01/18/2024 Naren Moreno Hypercholesterolemia E78.00 Naren Moreno MD [address] [place] [address] [phone] 07/15/2024 Naren Moreno Essential hypertensi on I10 and Hypercholesterolemia E78.00 Naren Moreno MD [address] [place] [phone] 01/25/2024 Naren Moreno Atrial fibrillation I48.91 ; Chronic sinusitis, unspecified J32.9 ; Obstructive sleep apnea G47.33 ; Essential hypertension I10 and Hypercholesterolemia E78.00 Naren Moreno MD [address] [place] [address] [phone] 08/03/2023 Naren Moreno Assessments Encounter Date Diagnosis (ICD Code) Assessment Notes Treatment Notes Treatment Clinical Notes Section Notes 07/21/2023 Atrial fibrillation (ICD-10 - I48.91) stable, will continue current regiment 07/21/2023 Microscopic hematuri a (ICD-10 - R31.29) refer to urology/ 01/18/2024 Hypercholesterolemia (ICD-10 - E78.00) 07/15/2024 Essential hypertensi on (ICD-10 - I10) 01/25/2024 Atrial fibrillation (ICD-10 - I48.91) has not had any episodes. 01/25/2024 Chronic sinusitis, unspecified (ICD-10 - J32.9) 07/21/2023 Essential hypertensi on (ICD-10 - I10) stable, will continue current regiment 07/15/2024 Hypercholesterolemia (ICD-10 - E78.00) 01/25/2024 Obstructive sleep ap lena (ICD-10 - [...] CHEST 2 VIEW PA & LAT 09/05/2021 Complete Blood Count Auto Diff Comprehensive [place]. Panel Fast Lipid Panel 07/15/2024 PSA,Total (Free>4and<10) 07/15/2024 CA stress test 01/15/2021 UA ClnCatch+Micro w/rflx Cult 07/15/2024 Next Appt Details Provider Name:Naren Knutson ier, 07/26/2024 09:30:00 AM, [address] [place] [address], [address], [place], [place], [phone], Insurance Providers Payer Name Payer Address Payer Phone Subscriber Number Group Number Insured Name Patient Relationship to Insured Coverage Start Date Coverage End Date MEDICARE NHIC ANU [address] [place] [address] [id number] Earnest Cerna Self - patient is the insured [id number] [address] [place] [phone] [id number] Earnest Cerna Self - patient is the insured Medical (General) History Medical History History ICD Code colonoscopy 2017. due in 2026
--- OUTSIDE RECORDS SUMMARY | 2024-07-15 11:27 | XMS_ITS ---
Author Organization Naren Moreno MD Address [address] [place] [phone] Care Team Providers Care Returned Telephone Equipment Appraiser Name Role Phone Naren Moreno Primary Care Provider Results Component Value Reference Range Notes Lipid Panel Reviewed date:01/18/2024 12:57:19 PM Interpretation: Performing Lab:[facility], [address] [place] [phone] Notes/Report: Triglycerides 144 <150 mg/dL Desirable Triglyceride: [...] Naren Moreno MD [address] [place] [phone] 01/18/2024 Naren Moreno Hypercholesterolemia E78.00 Assessments Encounter Date Diagnosis (ICD Code) Assessment Notes Treatment Notes Treatment Clinical Notes Section Notes 01/18/2024 Hypercholesterolemia (ICD-10 - E78.00) Plan Of Treatment Next Appt Details Provider Name:Naren Knutson ier, 07/26/2024 09:30:00 AM, [address], [address], [place], [place], [phone], Progress Notes * Earnest CERNA ADOB:[birth year] (73 yo M)Acc No.[id number]:01/18/2024 Progress Note Patient:?Earnest Cerna A Provider:?Naren Moreno MD :1950???Age:73 Y???Sex:Male Dawson e:01/18/2024 Address:[address] [place] [address], [facility] Subjective: * Chief Complaints: * ???Lipids * Medical History:? * Surgical History:? * Hospitalization/Major Diagno stic Procedure:? * Medications:? Objective: Assessment: * Assessment: 1.?Hypercholesterolemia - E7 8.00 (Primary)? Plan: * Treatment: * Procedure Codes:?29849 VENIP UNCT, ROUTINE* * * Sign off status: Completed true * Provider:?Naren Moreno MD Date:?1 Generated for Pal ng/Pranav/eTransmitting on:?07/15/2024 11:27 AM EDT
[2024-07-15 19:47] LABS: Alkaline Phosphatase 81 U/L (39-117)
== END 2024-07-15 10:31 | disposition home or self-care (01) ==
LOC: HO.LNP 10:30
PROVIDERS: Visit Provider Internal Medicine
DX: I10 Essential (primary) hypertension (principal); E78.00 Pure hypercholesterolemia, unspecified; Z12.5 Encounter for screening for malignant neoplasm of prostate
CPT/HCPCS: 80053; 80061; 81001; 84153; 85025

== ENCOUNTER 2025-03-10 09:12 | Day surgery (SDC) | payer MEDICARE, OTHER, SELFPAY ==
--- NOTE | 2025-03-08 09:42 | HO.ANESPROP2 ---
Documented by User: Mounika Woods NP 03/08/25 09:44 HPI - Anesthesia Eval Consult details Narrative: 74yo M for Colonoscopy Follows [facility] Cardiology for cardiomyopathy with tachyarrhythmia, paroxysmal AFib (eliquis). Stable at yearly routine office visit 05/2024 [facility] Active Problems Active Problems: All Active Problems GODWIN (obstructive sleep apnea) (Acute) Somnolence, daytime (Acute) Bronchial asthma (Acute) Sinusitis (Acute) Cough (Acute) Paroxysmal atrial flutter (Acute) Cardiomyopathy (Acute) Atrial fibrillation (Acute) HTN (hypertension) (Acute) Hypercholesteremia (Acute) Internal hemorrhoids (Acute) UTI (urinary tract infection) (Acute) COVID-19 (Acute) Encounter for screening laboratory testing for COVID-19 virus in asymptomatic patient (Acute) Past Medical History Medical History History of cardioversion (05/2021) GODWIN (obstructive sleep apnea) Somnolence, daytime Bronchial asthma Sinusitis Cough Paroxysmal atrial flutter Atrial flutter with rapid ventricular response Hypercholesteremia HTN (hypertension) Atrial fibrillation Family History Family History Father No problems noted. Mother Diabetes Family history of problems with anesthesia: No Surgical History Surgical History Hx of elbow surgery History of Problems with Anesthesia: No Social History Social History Household Members: Spouse and Family Housing: House Are you a primary childcare provider to a significant other at home: No Do you presently have visiting nurse or other home services: No Alcohol intake: former Patient Tobacco Use Status: Former Tobacco user Tobacco use type: Cigarette Smoked in Last 30 Days: No Use of substances other than those prescribed or required for medical reasons: No Have you been hit, kicked, punched, or otherwise hurt by someone within the past year? If so, by whom?: No Are you DNR?: No Advance Directives: No Advance Directives Information Provided: Yes Advance Directives on File: No service: Yes Current occupational status: retired Meds Allergies Allergy/AdvReac Type Severity Reaction Status Date / Time No Known Allergies (No Known Allergy Verified 06/23/24 08:07 Allergies*) Home Medications ?Medication ?Instructions ?Recorded ?Confirmed ?Last Taken ?Type multivitamin 1 tab PO DAILY 05/27/21 03/08/25 06/14/21 History omega 5-drc-lhw-fish oil 1,000 mg 1 cap PO DAILY 05/27/21 03/08/25 03/03/25 History (120 mg-180 mg) capsule (Fish Oil) flaxseed oil 1,000 mg capsule 1,000 mg PO DAILY 10/30/22 03/08/25 03/03/25 History Exam Pertinent Lab Results Pertinent Lab Results: Laboratory Tests 07/15/24 08:00 WBC 6.5 Hgb 13.2 L Hct 40.3 L Plt Count 251 Sodium 139 Potassium 4.7 Chloride 106 Carbon Dioxide 27 BUN 20 H Creatinine 1.09 Narrative Narrative: EKG 05/2024 Sinus Bradycardia, rate 59, Qtc 433ms ECHO 2022 Conclusions: - 1. Normal LV ejection fraction 55-60% 2. Mild aortic and mitral regurgitation 3. Normal RV systolic pressure 4. Mildly dilated ascending aorta 3.8 cm 5. No gross pericardial effusion Assessment and Plan Assessment Anesthesia Assessment: Chart Reviewed Final Anesthetic Review Family History of Problems with Anesthesia: No History of Problems with Anesthesia: No Documented by User: Vik Abreu MD 03/10/25 10:20 [facility] Past Medical History Medical History History of cardioversion (05/2021) GODWIN (obstructive sleep apnea) Somnolence, daytime Bronchial asthma Sinusitis Cough Paroxysmal atrial flutter Atrial flutter with rapid ventricular response Hypercholesteremia HTN (hypertension) Atrial fibrillation Functional capacity: independent ambulation Family History Family History Father No problems noted. Mother Diabetes Surgical History Surgical History Hx of elbow surgery Social History Social History Household Members: Spouse and Family Housing: House Are you a primary childcare provider to a significant other at home: No Do you presently have visiting nurse or other home services: No Alcohol intake: former Patient Tobacco Use Status: Former Tobacco user Tobacco use type: Cigarette Smoked in Last 30 Days: No Use of substances other than those prescribed or required for medical reasons: No Have you been hit, kicked, punched, or otherwise hurt by someone within the past year? If so, by whom?: No Are you DNR?: No Advance Directives: No Advance Directives Information Provided: Yes Advance Directives on File: No service: Yes Current occupational status: retired [employer] Allergies Allergy/AdvReac Type Severity Reaction Status Date / Time No Known Allergies (No Known Allergy Verified 06/23/24 08:07 Allergies*) Home Medications ?Medication ?Instructions ?Recorded ?Confirmed ?Last Taken ?Type multivitamin 1 tab PO DAILY 05/27/21 03/08/25 06/14/21 History omega 9-myy-vhx-fish oil 1,000 mg 1 cap PO DAILY 05/27/21 03/08/25 03/03/25 History (120 mg-180 mg) capsule (Fish Oil) flaxseed oil 1,000 mg capsule 1,000 mg PO DAILY 10/30/22 03/08/25 03/03/25 History Exam Exam Date and Time: 03/10/2025 Airway Mallampati Class: II TM Dist: >3cm Heart: a fib Lungs: normal Other: normal Assessment and Plan Final Anesthetic Review ASA Class: III Final Preanesthetic Review: No Changes in Pt Med Stat, Meds/Allgs Chart Reviewed, Consent Obtained/Reviewed and Anes Risks/Benef Reviewed Patient Risk: Intermediate Procedure Risk: Low Anesthetic Plan Anesthetic Plan: MAC: Disposition: Standard PACU
[2025-03-08 10:34] VITALS: BMI 30.5
[2025-03-08 16:14] VITALS: BMI 30.3
[2025-03-10 09:23] VITALS: BP 149/85; PULSE 76; RESP 18; TEMP 36.2; O2SAT 97
[2025-03-10] MEDS: Lactated Ringers 1,000 ML 100 ML IVCONT (09:55)
--- NOTE | 2025-03-10 10:53 | MHC.SHP ---
Pre-Procedural Eval Section A - 24 Hr Update-Section A only Date of Service: 03/10/25 The patient is an INPATIENT: No Changes since office visit: No Cold of Flu in the past 2 weeks, No New Medical Problems, No Changes in Medication and No Patient answered all questions The patient has been examined within 24 hours of the surgical procedure. The History & Physical has been completed within 30 days and I have reviewed it.: No Section B - Complete if H&P > 30 days Chief Complaint: Hemorrhage of anus and rectum Allergies: Allergies Allergy/AdvReac Type Severity Reaction Status Date / Time No Known Allergies (No Known Allergy Verified 06/23/24 08:07 Allergies*) Plan I have reviewed the history and physical and performed a pertinent physical examination on my patient. No changes have occurred unless specified. Time Spent With Patient Time: Total time managing care of this patient today ____ minutes.
[2025-03-10 11:27] VITALS: BP 96/51; PULSE 53; RESP 14; TEMP 36.1; O2SAT 94
[2025-03-10 11:32] VITALS: BP 102/51; PULSE 51; RESP 15; O2SAT 94
[2025-03-10 11:45] VITALS: BP 123/67; PULSE 55; RESP 14; TEMP 36.1; O2SAT 97
--- NOTE | 2025-03-10 22:54 | OP_ITS ---
DATE OF SERVICE: 03/10/2025 SURGEON: Jaciel Rosa MD INDICATIONS: Colon cancer screening. PREOPERATIVE DIAGNOSIS: POSTOPERATIVE DIAGNOSIS: PROCEDURE PERFORMED: Colonoscopy to the terminal ileum with biopsy. ESTIMATED BLOOD LOSS: COMPLICATIONS: ANESTHESIA: Monitored anesthesia care. ASSISTANTS: SPECIMENS: DESCRIPTION OF PROCEDURE: A history and physical was performed. The risks and benefits of the procedure were explained to the patient, and informed consent was obtained. The patient was placed in the left lateral decubitus position. A digital rectal exam was performed and was found to be normal. The Olympus pediatric video colonoscope was introduced into the rectum and advanced to the cecum. The cecum was identified by transillumination, palpation, and identification of the ileocecal valve. Examination was performed, and the scope was removed. He tolerated the procedure well and was returned to the recovery area in stable condition. FINDINGS: The terminal ileum was examined and appeared normal. The visualized colonic mucosa was normal. The quality of the prep was good. At 90 cm was a slightly erythematous area, which initially appeared to be consistent with a small sessile polyp. However, on repeat examination, did not have a polypoid appearance. This was biopsied. No other polyps or lesions were identified. There was diverticulosis scattered throughout the colon. Retroflexed examination showed some small internal hemorrhoids. IMPRESSION: Essentially normal colonoscopy. RECOMMENDATION: 1. Follow up the biopsy results. 2. Repeat colonoscopy would be recommended in 10 years for average-risk individuals. This is optional based on age. MD VALERIA Albarado/FARHAN / [phone]
== END 2025-03-10 12:29 | disposition home or self-care (01) ==
PROVIDERS: PCP Internal Medicine; Visit Provider Internal Medicine Gastroenterology
PROC: 0DJD8ZZ Inspection of Lower Intestinal Tract, Via Natural or Artificial Opening Endoscopic (ICD-10-PCS; CPT 45378; principal; 2025-03-10 11:50)
DX: Z12.11 Encounter for screening for malignant neoplasm of colon (principal); K62.5 Hemorrhage of anus and rectum; K64.8 Other hemorrhoids
CPT/HCPCS: G0121; 88305; J2003; J2704